=== PATIENT | male | born 1940 | race Caucasian/White ===

== ENCOUNTER 2024-06-24 23:41 | Inpatient (IN) | payer OTHER, SELFPAY ==
[2024-06-24 21:20] VITALS: BP 117/59
[2024-06-24 21:21] VITALS: BP 117/59
[2024-06-24 21:37] VITALS: BMI 27.7
[2024-06-24 21:53] LABS: COVID-19 Antigen Negative (Negative)
[2024-06-24 22:01] VITALS: BP 118/65
--- NOTE | 2024-06-24 22:03 | ED.GENMED ---
History of Present Illness
<JORDAN Garcia - Last Filed: 06/25/24 04:31>
General
Chief Complaint: Cough
Source: patient and family (son)
Time Seen by Provider: 06/24/24 21:56
Nursing documentation reviewed up to this point in time: agreed with
History of Present Illness
History of Present Illness:
A 83-year-old male with a past medical history of hypertension, thrombocytopenia, pacemaker, gallbladder dysfunction, congestive heart failure, presents to the emergency department for cough x 4 days. patient stated he began to develop a coarse
productive cough 4 days ago with brown and green-colored sputum. He describes the cough as a left sided chest vibration. He recently spent the last 5 weeks in a hospital in [place] for back pain, delirium, gallbladder dysfunction, suspected
bacterial endocarditis with positive Enterococcus blood cultures. Over the last 5 days, per son, he has had an increase in delirium frequency and severity. He denies nasal congestion, vision changes, ear fullness, abdominal pain, nausea, diarrhea,
vomiting.
Review of Systems
<JORDAN Garcia - Last Filed: 06/25/24 04:31>
Review of Systems
Allergies reviewed?: Yes
All Other Systems: ROS reviewed and negative except as documented in HPI and ROS
Phy Exam
<JORDAN Garcia - Last Filed: 06/25/24 04:31>
General Physical Exam
General Presentation: well appearing and no apparent distress
General age: appears stated age
General Skin: warm and dry
General Habitus: elderly and obese
General Mental: alert
General Hydration: appears well hydrated
General Chronic Disability: demented
Eye Exam
Eye Exam: conjunctiva normal
Cardiovascular Exam
Cardiovascular Exam: regular rate/rhythm and normal peripheral pulses
Pulmonary Exam
Oxygen Status: oxygen 2 liters via NC
Cough: coarse cough and productive cough
Breath Sounds: Rhonchi: left upper, left lower, right upper and right lower (inspiratory and expiratory, anterior)
Gastrointestinal Exam
Gastrointestinal Exam: non tender, soft and non distended
Neurological Exam
Neurological Exam: alert and speech normal
Mental
Mental Status: oriented to person, oriented to place and usual mental status
Musculoskeletal Exam
Musculoskeletal Exam: back pain
Skin Exam
Skin Exam: other (right side percutaneous cholecystomoy tube draining small amounts of bile and serosanguinous fluid )
Psychiatric Exam
Psychiatric Exam: normal mood/affect
Course
<Delfin Brink, [facility] - Last Filed: 06/25/24 04:31>
Orders/Labs/Results
Orders:
Orders
06/24/24 21:20
Electrocardiogram (*1) Urgent
Reason for Study: Other
Other Reason for Exam: Respiratory Distress
Cardiac Monitoring- Treatment ONCE
EKG- Treatment ONCE
IV Insert/Care/Rem.- Treatment PRN
CR Chest - 2 Views Urgent
Comment:
Reason For Exam: respiratory distress
06/24/24 21:29
COVID-19 Antigen Urgent
Source: Nasal Swab
06/24/24 21:47
Complete Blood Count/With Diff Urgent
Comprehensive Metabolic Panel Urgent
NT-proBNP Urgent
Troponin I Urgent
06/24/24 22:47
Lactic Acid Urgent
Blood Culture Q30M
LIANE Source: Blood/Venous
Specimen Description:
Blood Culture Q30M
LINAE Source: Blood/Venous
Specimen Description:
06/24/24 22:57
Piperacillin/Tazo 4.5 Gram [Zosyn] 4.5 gram in 100 ml IV NOW
06/24/24 23:02
0.9% Sodium Chloride 1000 ml [Nss] 1,000 ml IV BOLUS
06/24/24 23:13
Ipratropium/Albuterol Sulfate [Duoneb] 3 ml INH R NOW STA
06/24/24 23:14
Sputum Culture [Respiratory Culture/Gram Stain] Urgent
LIANE Source: Sputum
Specimen Description:
06/25/24 00:00
CT Head W/o Iv Contrast Urgent
Reason For Exam: confusion, acute change in MS
Abnormal Lab Results
06/24/24
21:47
RBC 3.70 L 10^6/uL
(4.70-6.10)
Hgb 12.5 L g/dL
(13.0-18.0)
Hct 35.2 L %
(39.0-52.0)
MCV 95.1 H fL
(80.0-94.0)
MCH 33.8 H pg
(27.0-31.0)
Plt Count 27 L* 10^3/uL
(130-400)
MPV 12.0 H fL
(7.4-10.4)
Absolute Eos (auto) 0.9 H 10^3/uL
(0-0.7)
Lymphocytes % 17.9 L %
(20.5-51.1)
Eosinophils % 10.5 H %
(0-6)
Chloride 94 L mmol/L
(98-107)
Carbon Dioxide 31 H mmol/L
(22-30)
BUN 25 H mg/dl
(9-20)
Creatinine 3.3 H mg/dL
(0.7-1.3)
Glucose 124 H mg/dl
(70-99)
Total Protein 6.1 L g/dl
(6.3-8.2)
06/24/24 21:47
06/24/24 21:47
Vital Signs
Initial and Last Documented VS:
Initial Vital Signs
Temp Pulse Resp Pulse Ox
97.7 F 97 19 89
06/24/24 21:14 06/24/24 21:14 06/24/24 21:14 06/24/24 21:14
Last Documented Vital Signs
Temp Pulse Resp BP Pulse Ox
98.3 F 76 17 118/55 96
06/25/24 02:47 06/25/24 04:04 06/25/24 04:04 06/25/24 04:04 06/25/24 04:04
<Radha Bhatia DO - Last Filed: 06/25/24 05:29>
Orders/Labs/Results
Orders:
Orders
06/24/24 21:20
Electrocardiogram (*1) Urgent
Reason for Study: Other
Other Reason for Exam: Respiratory Distress
Cardiac Monitoring- Treatment ONCE
EKG- Treatment ONCE
IV Insert/Care/Rem.- Treatment PRN
CR Chest - 2 Views Urgent
Comment:
Reason For Exam: respiratory distress
06/24/24 21:29
COVID-19 Antigen Urgent
Source: Nasal Swab
06/24/24 21:47
Complete Blood Count/With Diff Urgent
Comprehensive Metabolic Panel Urgent
NT-proBNP Urgent
Troponin I Urgent
06/24/24 22:47
Lactic Acid Urgent
Blood Culture Q30M
LIANE Source: Blood/Venous
Specimen Description:
Blood Culture Q30M
LIANE Source: Blood/Venous
Specimen Description:
06/24/24 22:57
Piperacillin/Tazo 4.5 Gram [Zosyn] 4.5 gram in 100 ml IV NOW
06/24/24 23:02
0.9% Sodium Chloride 1000 ml [Nss] 1,000 ml IV BOLUS
06/24/24 23:13
Ipratropium/Albuterol Sulfate [Duoneb] 3 ml INH R NOW STA
06/24/24 23:14
Sputum Culture [Respiratory Culture/Gram Stain] Urgent
LIANE Source: Sputum
Specimen Description:
06/25/24 00:00
CT Head W/o Iv Contrast Urgent
Reason For Exam: confusion, acute change in MS
Abnormal Lab Results
06/24/24
21:47
RBC 3.70 L 10^6/uL
(4.70-6.10)
Hgb 12.5 L g/dL
(13.0-18.0)
Hct 35.2 L %
(39.0-52.0)
MCV 95.1 H fL
(80.0-94.0)
MCH 33.8 H pg
(27.0-31.0)
Plt Count 27 L* 10^3/uL
(130-400)
MPV 12.0 H fL
(7.4-10.4)
Absolute Eos (auto) 0.9 H 10^3/uL
(0-0.7)
Lymphocytes % 17.9 L %
(20.5-51.1)
Eosinophils % 10.5 H %
(0-6)
Chloride 94 L mmol/L
(98-107)
Carbon Dioxide 31 H mmol/L
(22-30)
BUN 25 H mg/dl
(9-20)
Creatinine 3.3 H mg/dL
(0.7-1.3)
Glucose 124 H mg/dl
(70-99)
Total Protein 6.1 L g/dl
(6.3-8.2)
06/24/24 21:47
06/24/24 21:47
Vital Signs
Initial and Last Documented VS:
Initial Vital Signs
Temp Pulse Resp Pulse Ox
97.7 F 97 19 89
06/24/24 21:14 06/24/24 21:14 06/24/24 21:14 06/24/24 21:14
Last Documented Vital Signs
Temp Pulse Resp BP Pulse Ox
98.3 F 76 17 118/55 96
06/25/24 02:47 06/25/24 04:04 06/25/24 04:04 06/25/24 04:04 06/25/24 04:04
<JORDAN Garcia - Last Filed: 06/25/24 04:31>
MDM/Problems Addressed
Differential Diagnosis Includes:
Acute exacerbation of congestive heart failure, pneumonia, bacteremia, sepsis,
MDM/Problems Addressed:
Bacteremia and sepsis are currently pending.
X-ray findings demonstrated a left posterior lobe consolidation concerning for possible pneumonia.
Physical exam findings demonstrated prominent Rales in superior anterior and inferior anterior lobes of the chest consistent with pulmonary edema which could be related to to acute exacerbation of CHF.
<JORDAN Garcia - Last Filed: 06/25/24 04:31>
*Critical Care Note
Total Time (30-74mins, 75-104mins- exclusive of procedures): Not Applicable
<Radha Bhatia DO - Last Filed: 06/25/24 05:29>
*Radiology
Radiology exam reviewed: radiology read reviewed (CT of the head is unremarkable.)
ED Attending Note
<JORDAN Garcia - Last Filed: 06/25/24 04:31>
-
Portions of this chart may have been created with voice recognition software.� Occasional wrong word or��sound alike� substitutions may have occurred due to the inherent limitations of voice recognition software.
<Radha Bhatia DO - Last Filed: 06/25/24 05:29>
ED Attending Note
Patient seen and examined by attending physician: Yes
I performed the substantive portion of visit, reviewed & personally made and approve the management plan that is documented in note by myself or MATHEW.: Yes
ED Attending Note:
This is an 83-year-old gentleman who prior to 6 weeks ago had been residing at home independently, primary irrigator gravity flow for his who has advanced dementia. He was acutely hospitalized at [facility] 6 weeks ago initially with complaints of
severe back pain, generalized pain and weakness. Found to have Enterococcus bacteremia, acute cholecystitis and MRI showed possible discitis. Hospital course was complicated by acute on chronic thrombocytopenia. With platelet count generally
running in the low teens to 50s to 60s.
He has history of CAD, quadruple bypass, history of CHF with AICD in place. Echocardiogram concerning for vegetation on pacemaker wire and nuc med white blood cell scan showed increased uptake at vertebral disc, gallbladder as well as endocardial.
Significant back pain treated with Tylenol and as needed doses of tramadol. Placed on 6-week course of IV daptomycin which is scheduled to complete June 29.
He was discharged from [facility] to [facility] June 12.
Initially doing well but with continued back pain tramadol dose was increased June 19 and since that time he has had slow decline in functioning, increased confusion and son concerned with urgent text from his father today as his father seemed
very confused and paranoid. He has had a cough that initially began 2 days ago, increased today and sent to the ED by senior living staff due to laboratory studies today showing platelet count drifting down from 64 June 18 to 38 today.
He has not had a fall nor fever and according to son who is at bedside providing most of this information he was not running a fever during his hospitalization at [facility].
Although history of chronic thrombocytopenia, no history of acute bleeding issues. No history of falls prior to his hospitalization.
The son is healthcare advocate, power of commercial door installer. He states his father has advanced directives and he is DNR status.
GENERAL: 83-year-old gentleman appears somewhat chronically debilitated, appears his stated age. He is awake and alert, oriented x 2. Mildly anxious but easily communicative and answers yes/no questions appropriately. Mild resting tachypnea is
noted. Acutely hypoxic with room air pulse ox of 89%. Improved to 94% on 2 L nasal cannula.
EYE: pupils equal and reactive. anicteric
NECK: Supple, nontender, no meningismus, no significant adenopathy.
ENT: posterior pharynx is clear, oral mucosa is dry. TM clear b/l, nares patent.
CARDIAC: Regular rate and rhythm. 2/6 holosystolic murmur
LUNGS: Mild resting tachypnea. Coarse rhonchi left lower lobe as well as fine rhonchi throughout lung [place] bilaterally.
ABDOMEN: Soft, nondistended, without focal tenderness, T-tube right upper quadrant draining bilious liquid, no r/g, no cvat. normoactive BS.
NEUROLOGICAL: Alert and oriented x2, no focal neuro deficits. Motor strength 5/5 bilaterally. Gross sensation is intact.
SKIN: Warm and dry, normal color, skin intact. No rash. Ecchymotic patches anterior abdomen.
MUSCULOSKELETAL: No C/C/E. peripheral pulses are full and equal b/l. No palpable tenderness.
PSYCH: Mildly anxious, mildly confused, cooperative.
Concern for healthcare associated pneumonia, CHF, acute on chronic kidney disease, concern for progression of thrombocytopenia, concern for spontaneous intracranial bleeding, concern for persistent/recurrent bacteremia. Concern for toxic metabolic
encephalopathy related to hypoxia, increased tramadol dose, bacteremia, intracranial bleeding.
Labs are pending, chest x-ray, CT of the head. Will add lactic acid, blood cultures.
Chest x-ray shows left lower lobe infiltrate. Normal heart size. AICD left upper chest wall. Sternotomy wires.
Labs are significant for significant thrombocytopenia platelet count of 27 has drifted down from 38 earlier today.
Acute on chronic kidney disease with creatinine of 3.3, continues to drift up from earlier today with marked increased from creatinine of 1.44 June 18.
Clinically patient appears dehydrated, dry oral mucous membranes and uptrend in hemoglobin is likely hemoconcentration related to dehydration.
COVID testing is negative.
Troponin is negative.
BNP is 900, likely dry for patient.
CT of the head is pending.
Lactic acid is pending.
Will initiate IV Zosyn for coverage of healthcare associated pneumonia.
Will initiate gentle IV fluid rehydration.
Will give DuoNeb nebulizer for cough and if sputum produced will check sputum C&S.
Due to history of recent bacteremia, recent hospitalization, blood cultures have been ordered as well.
Will admit to hospitalist service.
Discharge Plan
Departure
Patient Disposition: Admit
Date of Disposition: 06/24/24
Time of Disposition: 23:14
Admit to: Telemetry
Admit to doctor: Ed
Presentation/result/management discussed w/ accepting MD/DO: Hospitalist
Condition: Serious
Discharge Problem:
HCAP (healthcare-associated pneumonia), Acute respiratory failure with hypoxia, Acute kidney injury superimposed on chronic kidney disease, acute on chronic thrombocytopenia
Interventions
Interventions:
*Risk Screen - Suicide Last Done: 06/24/24 21:14
*General Assessment Last Done: 06/24/24 21:14
*Neglect/Abuse Screening Last Done: 06/24/24 21:14
ED- Fall Risk Assessment Last Done: 06/25/24 00:52
*ED COVID-19 Vaccine History Last Done: 06/24/24 21:14
*Nursing Disposition Last Done: 06/25/24 00:52
ED- Pulmonary Assessment Last Done: 06/24/24 22:02
Discharge Date and Time
Discharge Date/Time: 06/25/24 00:53
[2024-06-24 22:20] LABS: % Basophils 0.4 % (0-2); % Eosinophils 10.5 % (0-6); % Immature Granulocytes 0.5 % (0-0.5); % Lymphocytes 17.9 % (20.5-51.1); % Monocytes 5.7 % (1.7-9.3); Absolute Eosinophils 0.9 10^3/uL (0-0.7); Absolute Lymphocytes 1.5 10^3/uL (1.2-3.4); Absolute Monocytes 0.5 10^3/uL (0.1-0.6); Absolute Neutrophils 5.4 10^3/uL (1.4-6.5); Hematocrit 35.2 % (39.0-52.0); Hemoglobin 12.5 g/dL (13.0-18.0); Mean Corp Hgb Conc. 35.5 g/dL (33.0-37.0); Mean Corpuscular Hgb 33.8 pg (27.0-31.0); Mean Corpuscular Volume 95.1 fL (80.0-94.0); Nucleated Red Blood Cells % 0 % (-); Platelet Count 27 10^3/uL (130-400); Red Cell Dist. Width 13.7 % (11.5-14.5); White Blood Cell Count 8.3 10^3/uL (4.8-10.8)
[2024-06-24 22:26] LABS: ALT (SGPT) 24 U/L (0-50); AST (SGOT) 35 U/L (17-59); Albumin 4.3 g/dl (3.5-5.0); Alkaline Phosphatase 43 U/L (38-126); Blood Urea Nitrogen 25 mg/dl (9-20); Carbon Dioxide 31 mmol/L (22-30); Chloride 94 mmol/L (98-107); Estimated Creatinine Clearance 15 ml/min; Glucose 124 mg/dl (70-99); Potassium 4.4 mmol/L (3.5-5.1); Sodium 136 mmol/L (135-145); Total Protein 6.1 g/dl (6.3-8.2)
[2024-06-24 22:29] LABS: NT-proBNP 912 pg/ml; Troponin I 0.025 ng/ml
[2024-06-24 23:00] VITALS: BP 115/56
[2024-06-24] MEDS: NSS 1000 IV (23:05)
[2024-06-24] MEDS: ZOSYN 100 IV (23:07)
[2024-06-24 23:11] LABS: Lactic Acid 1.5 mmol/L (0.7-2.0)
[2024-06-24] MEDS: DUONEB 3 ML INH (23:19)
--- NOTE | 2024-06-24 23:19 | HPS.HSE ---
Family Physician
-
Family Physician: Sergio Zhou
Chief Complaint
-
Cough
History of Present Illness
83-year-old male past medical history of CAD status post CABG, diastolic heart failure with ICD, CKD 3, hypertension, chronic thrombocytopenia, presenting to the hospital for productive cough and confusion for the past 5 days. History is obtained
from ER physician who obtained history from patient's son as listed in the chart.
Patient has had a lengthy hospitalization at [facility] after he presented there for generalized pain including abdominal pain and back pain and was found to have acute on chronic thrombocytopenia, acute cholecystitis, discitis as well as
vegetation on pacer wire, and Enterococcus bacteremia.
Due to thrombocytopenia no surgery was performed for acute cholecystitis but he had T-tube placed. No biopsy was performed for the discitis due to thrombocytopenia as well. No surgery was performed for the vegetation on the pacer wire.
Enterococcus bacteremia was treated with daptomycin through PICC line which patient is supposed to complete on 06/29.
Patient was discharged to [facility] on 06/12. She was discharged on Tylenol and tramadol for pain. Tramadol was increased due to increased pain. Over the past 5 days he has had worsening confusion, agitation and he was noted to be paranoid
today. He ripped out his midline.
Patient's platelet count was previously 64. Creatinine was 1.44 on 06/18.
Medical History
Past Medical History
Past Medical History: Reports Other
Additional Past Medical History:
Coronary Artery Disease
Chronic Diastolic Heart Failure
Essential Hypertension
Hyperlipidemia
CKD Stage III
Thrombocytopenia
Fatty Liver
BPH
Lumbar Spondylolisthesis
Enterococcus Bacteremia secondary to acute cholecystitis complicated by discitis and infected defibrillator wire
Past Surgical History: Reports Other
Additional Past Surgical History:
CABG
Defibrillator
Social History
Unable to obtain full social history at this time due to: Dementia
Tobacco: Non-smoker
Alcohol: None
Drug: None
Personal:
Living: Detention
Family History
Family History: Not pertinent
Allergies / Home Medications
Allergies reflects when Allergies were last updated in [employer].
Home Medications with original date entered in [employer]
Allergy/Medication List:
Allergies
Allergy/AdvReac Type Severity Reaction Status Date / Time
No Known Allergies Allergy Unverified 06/24/24 21:14
Home Medications
acetaminophen 325 mg tablet 650 mg PO Q4HPRN PRN mild pain/temp>100F 06/24/24
aspirin 81 mg tablet,delayed release 81 mg PO DAILY 06/24/24
bisacodyl 10 mg rectal suppository (Dulcolax (bisacodyl)) 10 mg DC DAILYPRN PRN if mom is ineffective 06/24/24
carvedilol 6.25 mg tablet 6.25 mg PO BID 06/24/24
daptomycin 500 mg intravenous solution 550 mg IV HS 06/24/24
isosorbide mononitrate 30 mg tablet,extended release 24 hr 30 mg PO DAILY 06/24/24
magnesium hydroxide 400 mg/5 mL oral suspension (Milk of Magnesia) 30 ml PO DAILYPRN PRN if no bm x 3 days 06/24/24
pantoprazole 40 mg tablet,delayed release 40 mg PO DAILY 06/24/24
potassium chloride 20 mEq tablet,extended release 20 meq PO DAILY 06/24/24
rosuvastatin 20 mg tablet 20 mg PO HS 06/24/24
sacubitril 24 mg-valsartan 26 mg tablet 1 tab PO DAILY 06/24/24
sodium chloride 0.9 % 10 ml IV TID 06/24/24
sodium phosphates 19 gram-7 gram/118 mL enema (Fleet Enema) 118 ml DC DAILYPRN PRN if dulcolax is ineffective 06/24/24
torsemide 20 mg tablet 20 mg PO DAILY 06/24/24
tramadol 50 mg tablet 50 mg PO Q8HPRN PRN moderate to severe pain 06/24/24
Review of Systems
-
Unable to obtain full review of systems at this time due to: Dementia
Physical Exam
Vital Signs
Vital Signs
Temp Pulse Resp BP Pulse Ox
97.7 F 90 25 118/65 92
06/24/24 21:14 06/24/24 22:39 06/24/24 22:39 06/24/24 22:01 06/24/24 22:39
Physical Exam
General: Well Developed, Well Nourished, No Apparent Distress and Comfortable
HEENT: NormoCephalic, Moist mucous membranes, Atraumatic, [place] Conjunctivae, Nose Appears Normal and Ears Appear Normal
Respiratory: Clear, Rhonchi, Crackles and Decreased Breath Sounds
Cardiac: S1/S2 and Regular Rhythm; No Murmur, Rub or Gallop
Breast: Deferred by me
GI: Soft, Non Tender and Normal Bowel Sounds; No Organomegaly
Rectal: Deferred by Provider
Genito-urinary: Deferred by me
Musculoskeletal: No Clubbing, No Cyanosis and No Edema
Skin: Warm and IV/Catheter Site; No Rash
Neuro: Awake, Alert and Nonfocal/grossly intact
Hematologic/Lymphatic: No Lymphadenopathy
Psych: Calm
Laboratory Results
-
06/24/24 21:47
06/24/24 21:47
Laboratory Results
Lactic Acid 1.5 mmol/L (0.7-2.0) 06/24/24 22:47
Total Bilirubin 1.0 mg/dl (0.2-1.3) 06/24/24 21:47
AST 35 U/L (17-59) 06/24/24 21:47
ALT 24 U/L (0-50) 06/24/24 21:47
Alkaline Phosphatase 43 U/L (38-126) 06/24/24 21:47
Troponin I 0.025 ng/ml 06/24/24 21:47
Data Reviewed
-
Diagnostic Radiology: Report Reviewed by me (CXR: Left lower lobe opacification suspicious for pneumonia. Follow-up imaging recommended to confirm complete resolution.)
Lab Data: Labs Reviewed by me (Plt 27, BUN 25, Creat 3.3)
Impression/Plan
-
IMPRESSION/PLAN:
#Pneumonia/Acute on Chronic kidney disease
- Cough x4 days, bilateral lung sounds rhonchi/crackles throughout
- CXR: Left lower lobe opacification suspicious for pneumonia
- Lactic 1.5
- Admit to IMU
- Consult Infectious disease
- Consult Nephrology
- blood cultures pending
- Mucinex
- straight cath/bladder scan protocol
- Continue daptomycin, start Zosyn
- Consult PT/OT
#Thrombocytopenia
- Plt 27
- no obvious signs of bleeding
- DVT Px SCDs
- Consult hematology
#Coronary Artery Disease
- Hx [place] with quadruple bypass
- continue rosuvastatin
#Chronic Diastolic Heart Failure
- BNP 912
- continue carvedilol, isosorbide
- hold potassium, torsemide
#Essential Hypertension
- continue carvedilol, isosorbide
- Consult Nephrology
#Hyperlipidemia
- continue rosuvastatin
#GERD
- continue pantoprazole
#BPH
- bladder scan/straight cath protocol
#Lumbar Spondylolisthesis
- hold tramadol
#Enterococcus Bacteremia secondary to acute cholecystitis complicated by discitis and infected defibrillator wire
- continue daptomycin
DNR
DVT Px: SCDs
--- NOTE | 2024-06-24 23:57 | W.PN.UPDATE ---
Addendum entered and electronically signed by ADALGISA Parry (Linda) 06/25/24 00:32:
Per Dr. Fox, Records requested from [facility] by Radha Bhatia.
Original Note:
Update Note
Progress Note Update
This is an addendum to the H&P written by Kelley Pacheco on 06/24/2024. Patient seen and examined independently with ONLINE EDUCATION MANAGER.
83-year-old male past medical history of CAD status post CABG, diastolic heart failure with ICD, CKD 3, hypertension, chronic thrombocytopenia, presenting to the hospital for productive cough and confusion for the past 5 days. History is obtained
from ER physician who obtained history from patient's son as listed in the chart.
Patient has had a lengthy hospitalization at [facility] after he presented there for generalized pain including abdominal pain and back pain and was found to have acute on chronic thrombocytopenia, acute cholecystitis, discitis as well as
vegetation on pacer wire, and Enterococcus bacteremia.
Due to thrombocytopenia no surgery was performed for acute cholecystitis but he had T-tube placed. No biopsy was performed for the discitis due to thrombocytopenia as well. No surgery was performed for the vegetation on the pacer wire.
Enterococcus bacteremia was treated with daptomycin through PICC line which patient is supposed to complete on 06/29.
Patient was discharged to [facility] on 06/12. She was discharged on Tylenol and tramadol for pain. Tramadol was increased due to increased pain. Over the past 5 days he has had worsening confusion, agitation and he was noted to be paranoid
today. He ripped out his midline.
Patient's platelet count was previously 64. Creatinine was 1.44 on 06/18.
On examination patient has coarse crackles bilaterally with productive cough. No abdominal tenderness. Labs show platelets of 27. Creatinine is 3.3. Cardiac BNP of 912. Chest x-ray shows left lower lobe opacification suspicious for pneumonia.
Patient currently on 2 L of oxygen. Clinical picture is concerning for pneumonia. Check sputum culture. Check blood cultures. Continue daptomycin, add Zosyn. Patient has severe MINDI on CKD which based on history should be prerenal however BUN is
minimally elevated. IV fluids. Bladder scan protocol. Hold nephrotoxic medications. Nephrology consulted. Hold tramadol due to confusion.
Given recent Enterococcus bacteremia, discitis, vegetation on pacer wire, cholecystitis will consult ID.
Hematology consulted for acute on chronic thrombocytopenia which is worse due to infection.
[2024-06-25] VITALS (19 sets, daily range): BP systolic 77–136; BP diastolic 49–92; PULSE 92–95; BMI 32.4
[2024-06-25] MEDS: CUBICIN 11 MG IV (01:26)
[2024-06-25] MEDS: NSS 1000 IV ×2 (01:26→19:33)
--- NOTE | 2024-06-25 01:50 | PTCARENOTE ---
Received verbal and written report from JONEL Kauffman. Pt arrived to unit via stretcher. Pt aaox2 (not to place). 95% on 2 L. VSS. V paced on the monitor. IVF running (see MAR) skin check, hygiene and admission completed (see worklist). Pt oriented
to unit, resting in bed with call way in reach.
[2024-06-25] MEDS: ZOSYN 50 IV ×4 (04:05→22:29)
[2024-06-25 05:17] LABS: Hematocrit 30.5 % (39.0-52.0); Hemoglobin 10.6 g/dL (13.0-18.0); Mean Corp Hgb Conc. 34.8 g/dL (33.0-37.0); Mean Corpuscular Hgb 33.2 pg (27.0-31.0); Mean Corpuscular Volume 95.6 fL (80.0-94.0); Mean Platelet Volume 13.1 fL (7.4-10.4); Platelet Count 25 10^3/uL (130-400); Red Blood Cell Count 3.19 10^6/uL (4.70-6.10); Red Cell Dist. Width 13.5 % (11.5-14.5); White Blood Cell Count 6.2 10^3/uL (4.8-10.8)
--- NOTE | 2024-06-25 05:28 | PTCARENOTE ---
Received call from lab that pt's plt are 25 (27 last night in ED). Notified SANDRA Iqbal. Hematology consult placed last night.
--- NOTE | 2024-06-25 08:08 | PTCARENOTE ---
Pt AAOx1-2 non compliant with care, refusing to put on a gown pt is naked under a sheet . Pt staes to leave him aonne and send him the bill for our services.
--- NOTE | 2024-06-25 08:17 | PTCARENOTE ---
Pt refusing all meds and refusing hands on assesment becoing agitated.
[2024-06-25] MEDS: PROTONIX PO (08:31)
[2024-06-25] MEDS: IMDUR (EXTENDED RELEASE) PO (08:31)
[2024-06-25] MEDS: MUCINEX PO ×3 (08:31→20:08)
[2024-06-25] MEDS: COREG PO ×2 (08:31→19:36)
--- NOTE | 2024-06-25 08:56 | PTCARENOTE ---
Pt has pulled out his Iv . Still refusing all care.Will not leave monitor on
--- NOTE | 2024-06-25 09:07 | CON.ONC ---
Impression
Impression
LLL PNA
hypotension
recent hospitalization at [facility] for management of Enterococcus Bacteremia d/t acute cholecystitis c/b discitis and infected defibrillator wire. s/p percutaneous analy tube
acute on chronic thrombocytopenia -he reports recent baseline 50,000 and chronic thrombocytopenia over the past 15 years of unknown etiology
Renal insufficiency
Plan
Plan
check DIC panel, HIT panel, b12, folate, monitor for bleeding
avoid NSAIDs, anticoagulation, and antiplatelet for platelet count <50,000
Abx per ID
MINDI/CKD per nephrology
Patient History
History of Present Illness
83yo M presents with cough and confusion. His symptoms have been ongoing for the past 5 days. He was recently hospitalized at [facility] for management of Enterococcus Bacteremia secondary to acute cholecystitis complicated by discitis
and infected defibrillator wire. He had a percutaneous analy tube placed and he placed on a course of IV abx through 06/29/2024. He was discharged to [facility] 06/12 with a PICC to complete his course of abx. He developed confusion and
agitation over the past 5 days which prompted ER evaluation. Initial evaluation notable for hypotension, afebrile, WBC 8.3, Hgb 12.5, Platelet count 27,000, BUN 25, Creatinine 3.3, and normal LFTs. CXR LLL PNA. COVID negative. Bcx pending. CT head
no acute findings. He has been admitted with consultation requests for hematology, nephrology and infectious disease. Hematology has been consulted for evaluation of acute on chronic thrombocytopenia.
He tells me that his platelet have trended from 114,00 to 80,000, and more recently with baseline of 50,000 of the past 15 years. He tells me that he does not know the cause of his low platelets. He denies ETOH use or cirrhosis.
Clinically, denies bleeding. He reports left hip/left buttock discomfort. Denies chest pain, palpitations, SOB at rest.
Past-Medical/Surgical History
PMH CAD, HFpEF, CKD 3, hypertension, chronic thrombocytopenia, BPH,
PSH CABG, ICD
Patient Medication
�Medication �Instructions �Recorded �Confirmed �Last Taken �Type
acetaminophen 325 mg tablet 650 mg PO Q4HPRN PRN mild 06/24/24 06/24/24 Unknown History
pain/temp>100F
aspirin 81 mg tablet,delayed 81 mg PO DAILY 06/24/24 06/24/24 06/24/24 09:00 History
release
bisacodyl 10 mg rectal suppository 10 mg DC DAILYPRN PRN if mom is 06/24/24 06/24/24 Unknown History
(Dulcolax (bisacodyl)) ineffective
carvedilol 6.25 mg tablet 6.25 mg PO BID 06/24/24 06/24/24 06/24/24 09:00 History
daptomycin 500 mg intravenous 550 mg IV HS 06/24/24 06/24/24 06/23/24 21:00 History
solution
isosorbide mononitrate 30 mg 30 mg PO DAILY 06/24/24 06/24/24 06/24/24 09:00 History
tablet,extended release 24 hr
magnesium hydroxide 400 mg/5 mL 30 ml PO DAILYPRN PRN if no bm x 3 06/24/24 06/24/24 Unknown History
oral suspension (Milk of Magnesia) days
pantoprazole 40 mg tablet,delayed 40 mg PO DAILY 06/24/24 06/24/24 06/24/24 09:00 History
release
potassium chloride 20 mEq 20 meq PO DAILY 06/24/24 06/24/24 06/24/24 09:00 History
tablet,extended release
rosuvastatin 20 mg tablet 20 mg PO HS 06/24/24 06/24/24 06/23/24 21:00 History
sacubitril 24 mg-valsartan 26 mg 1 tab PO DAILY 06/24/24 06/24/24 06/24/24 09:00 History
tablet
sodium chloride 0.9 % 10 ml IV TID 06/24/24 06/24/24 06/24/24 History
sodium phosphates 19 gram-7 118 ml DC DAILYPRN PRN if dulcolax 06/24/24 06/24/24 Unknown History
gram/118 mL enema (Fleet Enema) is ineffective
torsemide 20 mg tablet 20 mg PO DAILY 06/24/24 06/24/24 06/24/24 09:00 History
tramadol 50 mg tablet 50 mg PO Q8HPRN PRN moderate to 06/24/24 06/24/24 06/24/24 09:30 History
severe pain
Active Medications
Generic Name Dose Route Start Last Admin
Trade Name Freq PRN Reason Stop Dose Admin
Acetaminophen 650 mg 06/25/24 01:02
Acetaminophen 325 Mg Tablet PO 07/23/24 01:01
Q4HPRN PRN
mild pain/temp>100F
Aspirin 81 mg 06/25/24 08:00 06/25/24 08:31
Aspirin 81 Mg (Enteric Coated) Tablet PO 07/23/24 07:59 Not Given
DAILY LIVAN
Carvedilol 6.25 mg 06/25/24 08:00 06/25/24 08:31
Carvedilol 6.25 Mg Tablet PO 07/23/24 07:59 Not Given
BID LIVAN
Daptomycin 550 mg 06/25/24 22:00
Daptomycin 500 Mg/10 Ml Vial IV
HS LIVAN
Guaifenesin 600 mg 06/25/24 08:00 06/25/24 08:31
Guaifenesin 600 Mg Extended Release Tablet PO 07/23/24 07:59 Not Given
Q12 LIVAN
Sodium Chloride 1,000 mls @ 80 mls/hr 06/25/24 01:02 06/25/24 01:26
Nss IV 1,000 mls
.[id number] LIVAN Administration
Piperacillin Sod/Tazobactam Sod 2.25 grams in 50 mls @ 100 mls/hr 06/25/24 05:00 06/25/24 04:05
Zosyn IV 50 mls
Q6H LIVAN Administration
Isosorbide Mononitrate 30 mg 06/25/24 08:00 06/25/24 08:31
Isosorbide Mononitrate 30 Mg Extended Release Tablet PO 07/23/24 07:59 Not Given
DAILY LIVAN
Pantoprazole Sodium 40 mg 06/25/24 08:00 06/25/24 08:31
Pantoprazole 40 Mg Delayed Release Tablet PO 07/23/24 07:59 Not Given
DAILY LIVAN
Rosuvastatin Calcium 20 mg 06/25/24 22:00
Rosuvastatin (Crestor) 20 Mg Tablet PO 07/23/24 21:59
HS LIVAN
Review of Systems
-
ROS notable for HPI, otherwise negative
Physical Exam
-
Examined sitting in chair no distress
HEENT: Moist Mucous Membranes; Negative Jaundice
Cardiology: S1 and S2
Pulmonary: Rhonchi
GI: Soft and Other (perc analy tube)
Extremities: Pulses Present; Negative Edema
Neurology: Non Focal
Skin: Warm
Psych: Calm
Labs
Lab Results
WBC 6.2 10^3/uL (4.8-10.8) 06/25/24 04:15
RBC 3.19 10^6/uL (4.70-6.10) L 06/25/24 04:15
Hgb 10.6 g/dL (13.0-18.0) L 06/25/24 04:15
Hct 30.5 % (39.0-52.0) L 06/25/24 04:15
MCV 95.6 fL (80.0-94.0) H 06/25/24 04:15
MCH 33.2 pg (27.0-31.0) H 06/25/24 04:15
MCHC 34.8 g/dL (33.0-37.0) 06/25/24 04:15
RDW 13.5 % (11.5-14.5) 06/25/24 04:15
Plt Count 25 10^3/uL (130-400) L* 06/25/24 04:15
MPV 13.1 fL (7.4-10.4) H 06/25/24 04:15
Abs Immat Gran (auto) 0.0 10^3/uL (0-0.05) 06/24/24 21:47
Absolute Neuts (auto) 5.4 10^3/uL (1.4-6.5) 06/24/24 21:47
Absolute Lymphs (auto) 1.5 10^3/uL (1.2-3.4) 06/24/24 21:47
Absolute Monos (auto) 0.5 10^3/uL (0.1-0.6) 06/24/24 21:47
Absolute Eos (auto) 0.9 10^3/uL (0-0.7) H 06/24/24 21:47
Absolute Basos (auto) 0.0 10^3/uL (0-0.2) 06/24/24 21:47
Immature Gran % 0.5 % (0-0.5) 06/24/24 21:47
Neutrophils % 65.0 % (42.2-75.2) 06/24/24 21:47
Lymphocytes % 17.9 % (20.5-51.1) L 06/24/24 21:47
Monocytes % 5.7 % (1.7-9.3) 06/24/24 21:47
Eosinophils % 10.5 % (0-6) H 06/24/24 21:47
Basophils % 0.4 % (0-2) 06/24/24 21:47
Creatinine 3.3 mg/dL (0.7-1.3) H 06/24/24 21:47
Vital Signs
Vital Signs
Temp Pulse Resp BP Pulse Ox
97.8 F 86 18 123/55 96
06/25/24 07:44 06/25/24 08:01 06/25/24 08:01 06/25/24 08:01 06/25/24 08:24
--- NOTE | 2024-06-25 09:14 | W.CON.NEPH ---
Consultation
-
Date/Time Consultation Requested: 06/25/2024 8 AM
Date/Time Consultation Performed: 06/25/2024 9 AM
Requesting Provider: Dr. Fox
Performing Provider: Dr. Isaac
Reason for Consultation: MINDI
Medical History
-
Chief Complaint: Cough and confusion
History of Present Illness:
This is an 83-year-old gentleman who has most of his care near the [facility]. He was in the [facility] for a prolonged hospitalization recently for abdominal pain and back pain. At that time he was noted to have acute on chronic
thrombocytopenia, acute cholecystitis, discitis, pacer wire vegetation. This was associated with Enterococcus bacteremia. Given the thrombocytopenia conservative management was performed. A cholecystotomy tube was placed and empiric antibiotics
with daptomycin were given. No intervention was performed otherwise. He stabilized and was sent to [facility] on 06/12/2024. Blood work 1 week into his transfer showed a creatinine of 1.44 on June 18. Subsequently, he developed more pain
and his tramadol was increased. He then became more confused and agitated and paranoid. He pulled out his line. He was sent to the hospital. It was felt that he may also have a pneumonia. His creatinine was noted to be elevated over 3.0
representing acute kidney injury. He is currently uncooperative.
Past Medical History
Coronary Artery Disease
Chronic Diastolic Heart Failure
Essential Hypertension
Hyperlipidemia
CKD Stage IIIa
Thrombocytopenia
Fatty Liver
BPH
Lumbar Spondylolisthesis
Enterococcus Bacteremia secondary to acute cholecystitis complicated by discitis and infected defibrillator wire
CABG
Defibrillator/PPM
Social History
Tobacco: Non-Smoker
Alcohol: None
Family History
Family History: Not Pertinent
Allergies / Home Medications
Allergy/AdvReac Type Severity Reaction Status Date / Time
No Known Allergies Allergy Unverified 06/24/24 21:14
�Medication �Instructions �Recorded �Confirmed �Type
acetaminophen 325 mg tablet 650 mg PO Q4HPRN PRN mild 06/24/24 06/24/24 History
pain/temp>100F
aspirin 81 mg tablet,delayed 81 mg PO DAILY 06/24/24 06/24/24 History
release
bisacodyl 10 mg rectal suppository 10 mg CA DAILYPRN PRN if mom is 06/24/24 06/24/24 History
(Dulcolax (bisacodyl)) ineffective
carvedilol 6.25 mg tablet 6.25 mg PO BID 06/24/24 06/24/24 History
daptomycin 500 mg intravenous 550 mg IV HS 06/24/24 06/24/24 History
solution
isosorbide mononitrate 30 mg 30 mg PO DAILY 06/24/24 06/24/24 History
tablet,extended release 24 hr
magnesium hydroxide 400 mg/5 mL 30 ml PO DAILYPRN PRN if no bm x 3 06/24/24 06/24/24 History
oral suspension (Milk of Magnesia) days
pantoprazole 40 mg tablet,delayed 40 mg PO DAILY 06/24/24 06/24/24 History
release
potassium chloride 20 mEq 20 meq PO DAILY 06/24/24 06/24/24 History
tablet,extended release
rosuvastatin 20 mg tablet 20 mg PO HS 06/24/24 06/24/24 History
sacubitril 24 mg-valsartan 26 mg 1 tab PO DAILY 06/24/24 06/24/24 History
tablet
sodium chloride 0.9 % 10 ml IV TID 06/24/24 06/24/24 History
sodium phosphates 19 gram-7 118 ml CA DAILYPRN PRN if dulcolax 06/24/24 06/24/24 History
gram/118 mL enema (Fleet Enema) is ineffective
torsemide 20 mg tablet 20 mg PO DAILY 06/24/24 06/24/24 History
tramadol 50 mg tablet 50 mg PO Q8HPRN PRN moderate to 06/24/24 06/24/24 History
severe pain
Review of Systems
-
No chest pain or shortness of breath. Patient is confused
All other systems: Negative unless noted
Physical Exam
Vital Signs
Vital Signs
Temp Pulse Resp BP Pulse Ox
97.8 F 86 18 123/55 96
06/25/24 07:44 06/25/24 08:01 06/25/24 08:01 06/25/24 08:01 06/25/24 08:24
Lab Results
WBC 6.2 10^3/uL (4.8-10.8) 06/25/24 04:15
RBC 3.19 10^6/uL (4.70-6.10) L 06/25/24 04:15
Hgb 10.6 g/dL (13.0-18.0) L 06/25/24 04:15
Hct 30.5 % (39.0-52.0) L 06/25/24 04:15
Plt Count 25 10^3/uL (130-400) L* 06/25/24 04:15
Sodium 136 mmol/L (135-145) 06/24/24 21:47
Potassium 4.4 mmol/L (3.5-5.1) 06/24/24 21:47
Chloride 94 mmol/L (98-107) L 06/24/24 21:47
Carbon Dioxide 31 mmol/L (22-30) H 06/24/24 21:47
BUN 25 mg/dl (9-20) H 06/24/24 21:47
Creatinine 3.3 mg/dL (0.7-1.3) H 06/24/24 21:47
eGFR 17.60 06/24/24 21:47
Glucose 124 mg/dl (70-99) H 06/24/24 21:47
Calcium 10.0 mg/dl (8.4-10.2) 06/24/24 21:47
Mtc-J-Pgfqikswgyl Pept 912 pg/ml 06/24/24 21:47
Albumin 4.3 g/dl (3.5-5.0) 06/24/24 21:47
On June 18, 2024 potassium 2.7, creatinine 1.44, hemoglobin 10.5, platelets 64
On June 24, 2024 platelets 27, magnesium 1.5, creatinine 3.13, potassium 4.3
Physical Exam
Patient is awake alert oriented and in no distress. Mood and affect were pleasant, insight and judgment were good. Pupils are equal round and reactive to light, extraocular movements are intact, sclera were anicteric. Hearing was normal, ears and
nose are intact. Oropharynx was clear. Neck was supple with trachea midline and no thyromegaly. Heart was regular rate and rhythm without rubs. Lower extremities without edema. Lungs were clear to auscultation bilaterally and with normal
excursion. Abdomen was soft, nontender, with normal active bowel sounds, and no hepatosplenomegaly. Skin was without rash and with normal turgor.
Data Reviewed
-
Radiology: Image Personally Visualized and interpreted (Chest x-ray on 06/24/2024 by my read shows left lower lobe infiltrate)
CT Scan: Report Reviewed by me (CT head on 06/25/2024 shows no acute disease)
Medical Tests (Nuc Med, Echo etc): Image Personally Visualized and interpreted (EKG on 06/24/2024 by my reading shows V paced rhythm)
Labs: Labs Reviewed by me
Old Records: Reviewed
Assessment/Plan
-
Assessment
MINDI
CKD 3A, 1.44
Discitis
Pacer wire vegetation
Cholecystitis/TTube
Recent enterococcal bacteremia
Thrombocytopenia
Confusion, uncooperative
Plan
Follow BMP
IV fluids would be beneficial though patient will need to except an IV
Psychiatric consultation
Check urine if able
Antibiotics per infectious disease
--- NOTE | 2024-06-25 10:15 | CM ---
Met with patient briefly at beside; patient was confused
Initial assessment complete with son, Prem Morrison via phone
Son reported that patient was admitted via the ED from [facility]; NO Bed on Hold; son undecided if he wants patient to return to [facility] when stable for discharge; if he does, he will provide CM with site preferences
Son reported that father's confusion started 5 days ago; he was oriented at baseline
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
At [facility], patient needed assistance w/ADLs; getting out of bed to stand; was ambulating with a RW; able to feed self
Plan: most likely will need to return to a SNF when medically stable; pending bed availability and Auth approval
[2024-06-25] MEDS: MUCINEX 600 MG PO ×2 (10:28→21:38)
[2024-06-25] MEDS: PROTONIX 40 MG PO (10:28)
[2024-06-25] MEDS: COREG 6.25 MG PO (10:28)
[2024-06-25] MEDS: IMDUR (EXTENDED RELEASE) 30 MG PO (10:28)
[2024-06-25] MEDS: TYLENOL 650 MG PO (10:36)
--- NOTE | 2024-06-25 10:40 | PTCARENOTE ---
Pt now accepting meds and care.Given nmeds except ASA axxepted new IV
--- NOTE | 2024-06-25 10:51 | CON.CAR ---
Addendum entered and electronically signed by Kenny Castro MD 06/25/24 16:18:
83 yo male with PMH of CAD/CABG, ICM last EF 35-40%, BiV ICD, thrombocytopenia admitted with PNA. Prior recent admission at [facility] with enterococcus bacteremia and report of device lead vegetation. Due to thrombocytopenia, conservative
management was recommended. He complains of cough, and no chest pain. Exam with RRR, no murmurs, no edema. 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 Cr 3.3. Plts 25-30.
Echo here: EF 25-30%, no sig valve disease, no evidence of endocarditis within limits of TTE.
Given age, renal function (Cr 3.3), thrombocytopenia with plts <50, conservative/med mgmt seems reasonable, especially if Bcx remain negative. If Bcx become positive and plts improve above 50, we could reconsider DAYA, but he does not seem like a
good candidate for lead extraction at this time.
ICM. Continue coreg. Meds currently limited by renal function, Cr 3.3, unknown baseline. Continue coreg. Entresto and torsemide on hold.
Original Note:
Consultation
Consultation Request
Date/Time Consultation Requested: 06/25/24 1005
Date/Time Consultation Performed: 06/25/24 1030
Requesting Provider: Patsy Sutton MD
Performing Provider: Lucía DIANA for Dr. Castro
Reason for Consultation: eval for DAYA
Medical History
-
Chief Complaint: cough, confusion
History of Present Illness:
83 y/o male with CAD s/p CABG, hypertension, LBBB, ICM, HFrEF with EF from 11/22/22 35-40% (improved per chart), BS bi-V ICD, CKD, and thrombocytopenia. He identified his pre press manager as Dr. Barboza [facility] cardiology and I personally requested records,
which showed that he has a bi-V ICD ([employer]) placed in 2021. Patient is a poor historian at this time, so details of PMH and HPI are obtained from the chart. Apparently, he had a prolonged recent hospitalization at [facility] with
acute cholecystitis, discitis, vegetation on cardiac device wire, enterococcus bacteremia, and worsened thrombocytopenia. He has been at SNF ever since and is on IV abx. However, he has been having a significant cough, as well as confusion for the
past 5 days prior to arrival to hospital so was sent in for further evaluation. He has suspected PNA. We are consulted to evaluate for DAYA. Per primary team, conservative management at outside hospital was pursued due to low platelets. He is in no
distress at the time of my assessment. He has rhonchi throughout lung fiends on auscultation and continues to cough. Creatinine is noted to be 3.3 and nephrology is on the case. Recent hospitalization records requested from primary team per chart.
Past Medical History
Past Medical History: CAD, CHF, HTN and Other (thrombocytopenia)
Social History
Living: [facility]
Family History
Family History: Reviewed & Not Pertinent
Allergies / Home Medications
Allergy/AdvReac Type Severity Reaction Status Date / Time
No Known Allergies Allergy Unverified 06/24/24 21:14
�Medication �Instructions �Recorded �Confirmed �Type
acetaminophen 325 mg tablet 650 mg PO Q4HPRN PRN mild 06/24/24 06/24/24 History
pain/temp>100F
aspirin 81 mg tablet,delayed 81 mg PO DAILY Blood Clot 06/24/24 06/24/24 History
release Prevention/Tx
bisacodyl 10 mg rectal suppository 10 mg SC DAILYPRN PRN if mom is 06/24/24 06/24/24 History
(Dulcolax (bisacodyl)) ineffective
carvedilol 6.25 mg tablet 6.25 mg PO BID Heart 06/24/24 06/24/24 History
Disease/Condition
daptomycin 500 mg intravenous 550 mg IV HS Infection 06/24/24 06/24/24 History
solution
isosorbide mononitrate 30 mg 30 mg PO DAILY Heart 06/24/24 06/24/24 History
tablet,extended release 24 hr Disease/Condition
magnesium hydroxide 400 mg/5 mL 30 ml PO DAILYPRN PRN if no bm x 3 06/24/24 06/24/24 History
oral suspension (Milk of Magnesia) days
pantoprazole 40 mg tablet,delayed 40 mg PO DAILY Gastrointestinal 06/24/24 06/24/24 History
release Issue
potassium chloride 20 mEq 20 meq PO DAILY Electrolyte 06/24/24 06/24/24 History
tablet,extended release Repletion
rosuvastatin 20 mg tablet 20 mg PO HS High Cholesterol 06/24/24 06/24/24 History
sacubitril 24 mg-valsartan 26 mg 1 tab PO DAILY Heart 06/24/24 06/24/24 History
tablet Disease/Condition
sodium chloride 0.9 % 10 ml IV TID Allergies 06/24/24 06/24/24 History
sodium phosphates 19 gram-7 118 ml SC DAILYPRN PRN if dulcolax 06/24/24 06/24/24 History
gram/118 mL enema (Fleet Enema) is ineffective
torsemide 20 mg tablet 20 mg PO DAILY Fluid 06/24/24 06/24/24 History
Retention/Swelling
tramadol 50 mg tablet 50 mg PO Q8HPRN PRN moderate to 06/24/24 06/24/24 History
severe pain
Review of Systems
-
Unable to obtain full review of systems at this time due to: Other (forgetful)
History Source: Other (chart)
Constitutional: Other (confusion)
Respiratory: Cough
Physical Exam
Vital Signs
Temp Pulse Resp BP Pulse Ox
97.8 F 86 18 123/55 96
06/25/24 07:44 06/25/24 08:01 06/25/24 08:01 06/25/24 08:01 06/25/24 08:24
Lab Results
06/25/24 04:15
06/24/24 21:47
Troponin I 0.025 ng/ml 06/24/24 21:47
Mpa-M-Eomwhrjjckc Pept 912 pg/ml 06/24/24 21:47
Physical Exam
General: Well Developed, Well Nourished and No Apparent Distress
HEENT: Normocephalic and Anicteric
Respiratory: Rhonchi (throughout)
Cardiac: Regular Rhythm
Musculoskeletal: No Edema
Skin: Warm and Dry
Neuro: Awake, Alert and Oriented (to self and time; forgetful)
Psych: Calm
Impression / Plan
-
Pneumonia:
-on IV abx
-management per primary team. ID is consulted.
MINDI on CKD:
-nephrology is following
CAD with hx CABG:
-details unknown
-seems to be stable without angina
CHF: chronic HFrEF
-does not appear volume overloaded to my assessment
-monitor volume
-he is on torsemide as OP- held for now with MINDI and acute illness
ICM EF 35-40% on echo 2022 from [facility]:
-on Entresto and coreg as OP
-Entresto held with MINDI
Thrombocytopenia:
-severe
-heme consulted
Recent enterococcus bacteremia with reports of discitis and cardiac device wire involvement:
-repeat blood cultures pending
-we are consulted to evaluate for DAYA. However, patient has a platelet count of 25 and it would not be safe or helpful to get DAYA at this time. Recommend antibiotics as recommended by ID, who are consulted.
Data Reviewed
-
EKG: Tracing Personally Visualized and interpreted ( LEATHER ETCHER, prolonged AV conduction 95 BPM)
Radiology: Report Reviewed by me (Left lower lobe opacification suspicious for pneumonia. )
Medical Tests (Nuc Med, Echo etc): Report Reviewed by me (echo 11/22/2022: EF 35-40%, mild MR)
Labs: Labs Reviewed by me
Old Records: Reviewed (echo and device info [facility] cardiology)
--- NOTE | 2024-06-25 11:22 | VATNOTE ---
Midline order received for ABX through Saturday06/29/24. This VAT RN spoke to ordering resident, ok to hold on midline. Per resident, pt is not up for D/C today and is in/out of confusion. Pt has pulled previous lines, including a PICC line at the
[facility]. If still needed, midline can be placed closer to D/C. Will continue to monitor.
[2024-06-25 11:38] LABS: APTT 30.9 Sec (23.4-35.0); INR 1.48; PT 18.4 Sec (11.4-14.6)
--- NOTE | 2024-06-25 11:39 | W.PN.HOSP.TC ---
Addendum entered and electronically signed by Yair Jacob MD 06/25/24 13:43:
Imaging
CXR
IMPRESSION:
Left lower lobe opacification suspicious for pneumonia. Follow-up imaging recommended to confirm complete resolution.
Head CT
IMPRESSION:
1. No acute intracranial abnormalities appreciated.
2. Mild atrophy and mild chronic small vessel change.
Physical Exam
NAD, resting comfortably in bed
Scleral anicteric
Moist mucous membranes
No JVD
CTA bilateral
Normal S1-S2 no murmurs
Soft nontender nondistended bowel sounds active
No peripheral pitting edema
Moves extremities spontaneously
AAOx3
Assessment and Plan
Acute hypoxemic respiratory secondary to pneumonia
-Recently hospitalized for Enterococcus bacteremia, on long-term IV antibiotics with daptomycin with end date 06/29
-As daptomycin causes MRSA this will be continued
-Add additional broad-spectrum antibiotic with Zosyn
-ID consulted
-Follow-up on sputum and blood cultures
-Wean O2
-Incentive spirometer
MINDI
-Per documentation baseline creat 1.4
-Not sure what baseline GFR was unclear if this is MINDI on CKD versus progressive CKD however likely the former
-Check urine studies with urine analysis urine sodium creatinine protein and urine OSM
-Monitor urinary output
-Bladder scan
-Nephrology to see
Enterococcus bacteremia from outside hospital for suspected endocarditis
-Midline pulled out
-Consult IV team to place
-Continue daptomycin
-ID consulted
-DAYA once plt greater than 50 per cardiology
Thrombocytopenia�chronic
-Can check HIV hepatitis C B12 folate
-Peripheral smear
-Hematology consulted
-Transfuse platelets for active bleeding with platelet count of less than 30,000
-Transfuse platelets without active bleeding for platelet count less than than 10,000
CAD
-S/p quadruple bypass
-Not on ASA as plt less than 50,000
-Continue HI statin
Refusing treatment, has limited insight, sat with him for 33minutes, explaining his medical ocnditions, where he was and what the plan was
-Consult psych
Original Note:
Today's Communication/Plan
-
Continue antibiotics, continue gentle fluid, hold ASA with MINDI, cultures pending
Assessment / Plan
Assessment / Plan
Pneumonia
� Chest x-ray left lower lobe opacification suspicious for pneumonia
- Cough for past 4 days, bilateral rhonchi/crackles throughout
- Lactic acid 1.5
- Blood cultures pending
- Zosyn, cont daptomycin
- Gentle fluids
History of Enterococcus Bacteremia secondary to acute cholecystitis complicated by discitis and vegetation on defibrillator wire
- Unable to receive surgical interventions prior as hx thrombocytopenia 62 at prior hospital. T tube placed for cholecystitis
- Blood cultures
- PICC line ripped out at senior care
- Restart daptomycin here
- ID appreciated
- DAYA pending ptl level >50 per cardiology
- Work up for low ptl per hemeonc
- Consult psych for increased agitation and dementia
- Contact son for further information
- Requesting records from [facility]
Acute on chronic Thombocytopenia
- Baseline 50,000, today 25
- Check DIC panel, HIT panel, B12, folate, monitor for bleeding per hemeonc
- Hold aspirin
MINDI on CKD stage 3a
-Cr 3.3, baseline 1.4
- Nephrology consulted
- Gentle fluids
- Urine studies and serum osm pending
Agitation/dementia
- Ripped out mid-line
- Uncooperative this am
- Psych appreciated
Macrocytic anemia
- 12.5-> 10.6
- MCV 95.6
- Check folate and B12
- No signs of active bleed
- Repeat CBC in PM
CAD
� History [place] with quadruple bypass
- Continue statin, hold aspirin with MINDI
HFpEF
� BNP 912
� Continue carvedilol, iso-Sorbide
� Hold potassium, torsemide
- Cardiology following for repeat DAYA
- Last echo unknown
Essential hypertension
� Continue carvedilol, isosorbide
Hyperlipidemia
� Continue statin
GERD
� Continue pantoprazole
BPH
� Bladder scan/straight cath protocol
Lumbar spondylolithiasis
� Hold tramadol
Anticipated Discharge: > 48 hours
Subjective/Interval History
-
Date of Service: June 25, 2024
Objective Data
-
Labs:
Laboratory Results
06/25/24 06/25/24
04:15 11:08
WBC 6.2
Hgb 10.6 L
Hct 30.5 L
Plt Count 25 L*
PT Pending
INR Pending
APTT Pending
Vital Signs:
Vital Signs
Temp Pulse Resp BP Pulse Ox
97.8 F 113 16 136/57 96
06/25/24 07:44 06/25/24 10:14 06/25/24 10:14 06/25/24 10:14 06/25/24 08:24
I&O
06/24/24 06/25/24 06/26/24
06:59 06:59 06:59
Intake Total 210 / 210
Output Total 70 / 70 200 / 200
Balance -70 / -70
Physical Exam
-
General: Conversant
HEENT: Normocephalic
Respiratory: Rhonchi and Crackles
Cardiac: Regular Rhythm and S1/S2
GI: Soft and Nontender
Musculoskeletal: No Edema
Skin: Warm
Neuro: Awake and Alert; Negative Oriented
Psych: Confused
[2024-06-25 11:41] LABS: D-Dimer 2.71 ug/mlFEU (0.00-0.50)
[2024-06-25 11:44] LABS: Fibrinogen 134 MG/DL (199-459)
[2024-06-25 11:48] LABS: Osmolality Serum 292 mOsm/kg (275-300)
--- NOTE | 2024-06-25 12:04 | CON.ID ---
Consultation
-
Date/Time Consultation Requested: 06/25/2024 0102
Date/Time Consultation Performed: 08/25/2023 1200
Requesting Provider: Meenu Bustos
Performing Provider: Dr. Ramirez
Reason for Consultation: Bacteremia, discitis
Chief Complaint / Past History
History of Present Illness
Sharif Morrison is an 83-year-old man with a significant past medical history of recent prolonged hospital stay (5 weeks) for enterococcal bacteremia, suspected endocarditis, being evaluated for the same.
During that hospital stay, he was also treated for acute cholecystitis, with T-tube placement. Current history is obtained from chart review, along with patient interview.
Patient is found to be able to provide very little in the way of information, but notes that he initially presented to [facility] with abdominal pain. While there, he was found to have cholecystitis. He has a history of chronic
thrombocytopenia, and ultimately no surgery was performed, but rather a T-tube was placed. Evidently, while hospitalized, he was found to have enterococcal bacteremia, and reportedly a cardiac lead vegetation, and was discharged to complete a
6-week course of daptomycin, with a tentative end date of 06/29.
At this point in time, the patient notes a cough, with minimal sputum production. He is not sure whether he has had any fevers or chills. He reports that his breathing is comfortable. He denies any abdominal pain. He notes chronic low back pain,
which has been present for the past 2 years or so.
Past History
Additional Past Medical History:
CAD
CKD stage III
HTN
Chronic thrombocytopenia
CHF
Dyslipidemia
BPH
Lumbar spondylolisthesis
Additional Past Surgical History:
CABG
AICD
T-tube placement
Allergy History:
No Known Allergies Allergy (Unverified 06/24/24 21:14)
Medications Reviewed: Yes
Current Antibiotics:
Daptomycin 550 mg IV every 24 hours
Zosyn 2.25 g IV every 6 hours
Social History
Tobacco: Non-Smoker
Alcohol: None
Drug: None
Personal:
Living: Intermediate
Employment: Retired
Family History
Family History: Not Pertinent
Review of Systems
Vital Signs
Temp Pulse Resp BP Pulse Ox
97.9 F 113 16 136/57 96
06/25/24 11:30 06/25/24 10:14 06/25/24 10:14 06/25/24 10:14 06/25/24 08:24
Physical Exam
Physical Exam
Constitutional: No Acute Distress, Comfortable, Chronically Ill and Non-toxic
Head: Normocephalic
Eyes: Pupils Equal, Pupils Round, No Conjunctival Hemorrhage and Sclera Anicteric
Oral: No Thrush and No Ulcers
Cardiovascular: Regular Rate and S1/S2; Negative S3/S4 or Murmur
Pulmonary: Clear; Negative Wheezes, Rales or Rhonchi
Gastrointestinal: Soft, Non Tender, Non Distended, Normal Bowel Sounds, No Rebound, No Guarding and Other (Cholecystostomy tube in place with minimal drainage.)
Extremities: Negative Edema, Clubbing, Erythema, Splinter Hemorrhage, Venous Insufficiency or Janeway Lesions
Musculoskeletal: Negative Joint Swelling
Skin: Warm and Dry; Negative Rash or Jaundice
Neurological: Awake and Alert
Psychological: Calm
Lab / Diagnostic Study Results
06/25/24 04:15
06/24/24 21:47
Abs Immat Gran (auto) 0.0 10^3/uL (0-0.05) 06/24/24 21:47
Absolute Neuts (auto) 5.4 10^3/uL (1.4-6.5) 06/24/24 21:47
Absolute Lymphs (auto) 1.5 10^3/uL (1.2-3.4) 06/24/24 21:47
Absolute Monos (auto) 0.5 10^3/uL (0.1-0.6) 06/24/24 21:47
Absolute Basos (auto) 0.0 10^3/uL (0-0.2) 06/24/24 21:47
Immature Gran % 0.5 % (0-0.5) 06/24/24 21:47
Neutrophils % 65.0 % (42.2-75.2) 06/24/24 21:47
Lymphocytes % 17.9 % (20.5-51.1) L 06/24/24 21:47
Monocytes % 5.7 % (1.7-9.3) 06/24/24 21:47
Eosinophils % 10.5 % (0-6) H 06/24/24 21:47
Basophils % 0.4 % (0-2) 06/24/24 21:47
PT 18.4 Sec (11.4-14.6) H 06/25/24 11:08
INR 1.48 06/25/24 11:08
Lactic Acid 1.5 mmol/L (0.7-2.0) 06/24/24 22:47
Microbiology Results
Micro:
06/25/24 01:45 MRSA Screen - Pending
Nose
06/24/24 22:47 Blood Culture - Pending
Blood/Venous
06/24/24 22:47 Blood Culture - Pending
Blood/Venous
Imaging:
06/24/2024 CXR (2 view): Right lower lobe opacification is seen, suspicious for pneumonia. Cardiomediastinal silhouette are within the limits of normal. No pneumothorax, pleural effusion or mediastinal shift noted. A left-sided cardiac device is
seen with intact wires. Sternal wires are also noted. Please see full dictation for additional detail.
06/25/2024 CT head without contrast: No acute intracranial abnormalities noted. Mild atrophy and mild chronic small vessel changes noted. Please see full dictation for additional detail.
Assessment / Plan
History of enterococcal bacteremia
Presumed endocarditis
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
Recent cholecystitis with T-tube placement
Right lower lobe PNA
CAD
CKD stage III
HTN
Chronic thrombocytopenia
CHF
Dyslipidemia
BPH
Lumbar spondylolisthesis
Recommendations:
Continue with empiric Zosyn.
Continue with prior course of daptomycin.
Records from [facility] have been requested. Will review when obtained to determine further course of antibiotics for prior enterococcal bacteremia and associated infection.
Sputum culture has been ordered. Blood cultures have been obtained.
Since patient has been on a course of daptomycin; will check CPK in AM.
Additionally, check ESR and CRP in AM.
Check CBC with differential in AM, given elevated eosinophils.
[2024-06-25 12:51] LABS: % Basophils 0.3 % (0-2); % Eosinophils 11.4 % (0-6); % Immature Granulocytes 0.5 % (0-0.5); % Lymphocytes 20.1 % (20.5-51.1); % Monocytes 6.4 % (1.7-9.3); % Neutrophils 61.3 % (42.2-75.2); Absolute Eosinophils 0.7 10^3/uL (0-0.7); Absolute Lymphocytes 1.3 10^3/uL (1.2-3.4); Absolute Monocytes 0.4 10^3/uL (0.1-0.6); Nucleated Red Blood Cells % 0 % (-)
--- NOTE | 2024-06-25 13:20 | CS.PSYCHR ---
Consult Summary - Psychiatry
-
Pt is an 83 yo who presented from [facility] with productive cough and confusion for 4- 5 days. Hx was noted provided to ER by pt's son. Pt had an extended hospital stay at [facility] for acute cholecystitis, vegetation on pacer wire,
Enterococcus bacteremia; was discharged to [facility] on 06/12. Since admission here, pt has had worsening confusion and agitation, pulled out his IV. Pt was refusing all care, refusing all meds earlier this morning, noted to be alert,
oriented x 1-2. On exam, pt currently calm, sitting up in chair, allowing IV to be placed. No agitation at present, answering questions coherently, though hesitant, poor historian. Pt was not given any med for agitation per the chart.
PMH: CAD status post CABG, diastolic heart failure with ICD, CKD 3, HTN, chronic thrombocytopenia. QTc 462 on 06/24
Psych Hx: none noted
SH: unable to obtain
MSE: alert, calm, cooperative at the time of exam, speech coherent, no signs of psychosis. Affect appropriate. No current agitation. Insight appears limited
Imp: Delirium with agitation, R/o dementia
Rec: po Risperidone as needed if agitation recurs. IM Zyprexa 2.5 to 5 mg prn would be an alternative if po meds refused
will follow
--- NOTE | 2024-06-25 14:19 | CARDSERVLU ---
Echocardiogram with Lumason completed after protocol screening completed. Allergies verified.
Patent IV site: left hand
IV site flushed with 0.9% NaCl pre and post administration.
Diluted bolus method utilized to enhance visualization of ventricular loya.
Total volume given: __4.0__ mL
Patient tolerated all procedures well without complications.
[2024-06-25 15:52] LABS: Hematocrit 33.4 % (39.0-52.0); Hemoglobin 11.7 g/dL (13.0-18.0); Mean Corpuscular Hgb 34.6 pg (27.0-31.0); Mean Corpuscular Volume 98.8 fL (80.0-94.0); Mean Platelet Volume 12.4 fL (7.4-10.4); Platelet Count 38 10^3/uL (130-400); Red Blood Cell Count 3.38 10^6/uL (4.70-6.10); Red Cell Dist. Width 13.5 % (11.5-14.5); White Blood Cell Count 8.5 10^3/uL (4.8-10.8)
[2024-06-25 16:34] LABS: Urine Albumin Trace (Neg - Trace); Urine Bilirubin Negative (Negative); Urine Character Clear (Clear); Urine Color Yellow; Urine Glucose Negative (Negative); Urine Ketone Negative (Negative); Urine Leukocyte Negative (Negative); Urine Nitrite Negative (Negative); Urine Occult Blood 2+ (Negative); Urine Specific Gravity 1.005 (<1.030); Urine Urobilinogen Negative (Neg - 1+)
[2024-06-25 16:41] LABS: Osmolality Urine 194 mOsm/kg (300-900)
[2024-06-25 16:49] LABS: Urine Bacteria Few (Negative); Urine Squamous Cell 0-2 /LPF (Few); Urine White Cell 0-2 /HPF (0-5)
[2024-06-25 17:01] LABS: Folate 18.6 ng/ml (2.76-20); Vitamin B12 915 pg/ml (239-931)
[2024-06-25] MEDS: CRESTOR PO (20:08)
--- NOTE | 2024-06-25 20:09 | PTCARENOTE ---
Patient refusing all PO medications until dayshift MD come to speak to him. Patient very confused and thinks he is in [place]. Education provided to why he is prescribed meds- unable to comprehend.
[2024-06-25] MEDS: RISPERDAL M-TAB (ORALLY DISINTEGRATING) 0.5 MG PO (21:37)
[2024-06-25] MEDS: CRESTOR 20 MG PO (21:38)
[2024-06-25 22:54] LABS: Urine Protein 51 mg/dl (0-12); Urine Sodium 55 mmol/L (30-90)
[2024-06-26] VITALS (17 sets, daily range): BP systolic 102–141; BP diastolic 52–112; PULSE 96–120; O2SAT 92–93; BMI 32.2
[2024-06-26] MEDS: NSS IV (03:19)
[2024-06-26 04:30] LABS: ALT (SGPT) 20 U/L (0-50); AST (SGOT) 26 U/L (17-59); Albumin 3.7 g/dl (3.5-5.0); Alkaline Phosphatase 42 U/L (38-126); Blood Urea Nitrogen 18 mg/dl (9-20); Calcium 9.5 mg/dl (8.4-10.2); Carbon Dioxide 28 mmol/L (22-30); Chloride 104 mmol/L (98-107); Creatine Phosphokinase 47 U/L (55-170); Estimated Creatinine Clearance 17 ml/min; Glucose 116 mg/dl (70-99); Hematocrit 33.7 % (39.0-52.0); Hemoglobin 11.7 g/dL (13.0-18.0); Mean Corp Hgb Conc. 34.7 g/dL (33.0-37.0); Mean Corpuscular Hgb 33.7 pg (27.0-31.0); Mean Corpuscular Volume 97.1 fL (80.0-94.0); Mean Platelet Volume 12.4 fL (7.4-10.4); Platelet Count 33 10^3/uL (130-400); Potassium 3.8 mmol/L (3.5-5.1); Red Blood Cell Count 3.47 10^6/uL (4.70-6.10); Red Cell Dist. Width 13.5 % (11.5-14.5); Sodium 143 mmol/L (135-145); Total Bilirubin 1.2 mg/dl (0.2-1.3); Total Protein 5.5 g/dl (6.3-8.2); White Blood Cell Count 9.1 10^3/uL (4.8-10.8); eGFR 21.44
[2024-06-26 04:33] LABS: C-Reactive Protein < 5.00 mg/L (0.0-10.00)
[2024-06-26] MEDS: ZOSYN 50 IV ×3 (05:06→18:05)
--- NOTE | 2024-06-26 06:00 | PTCARENOTE ---
Patient eventually cooperative with taking PO meds. Still very confused, paranoid, and restless. Patient with worsening lung sounds as the night went on- coarse with crackles with SARMIENTO. Patient with CHF and has been on NS 80ml/hr x 48 hours. call center associate
provider asked if ok to d/c fluids. Order placed.
[2024-06-26 06:49] LABS: % Basophils 0.2 % (0-2); % Immature Granulocytes 0.7 % (0-0.5); % Lymphocytes 18.3 % (20.5-51.1); % Monocytes 4.3 % (1.7-9.3); % Neutrophils 66.5 % (42.2-75.2); Absolute Eosinophils 0.9 10^3/uL (0-0.7); Absolute Immature Granulocytes 0.1 10^3/uL (0-0.05); Absolute Lymphocytes 1.7 10^3/uL (1.2-3.4); Absolute Monocytes 0.4 10^3/uL (0.1-0.6); Nucleated Red Blood Cells % 0 % (-)
[2024-06-26 07:09] LABS: Erythrocyte Sed Rate 7 mm/hour (0-20)
--- NOTE | 2024-06-26 08:06 | W.PN.ONC2 ---
Documented by User: [email or web address] Cha 06/26/24 10:55
Today's Communication / Plan
-
transfuse platelets <10, prn <50 if bleeding
transfuse cryo prn bleeding if fibrinogen <150
f/u HIT panel,
monitor for bleeding
avoid NSAIDs, anticoagulation, and antiplatelet for platelet count <50,000
Abx per ID
MINDI/CKD per nephrology
Impression
Impression
LLL PNA
hypotension
recent hospitalization at [facility] for management of Enterococcus Bacteremia d/t acute cholecystitis c/b discitis and infected defibrillator wire. s/p percutaneous analy tube
acute on chronic thrombocytopenia -he reports recent baseline 50,000 and chronic thrombocytopenia over the past 15 years of unknown etiology. No B12 or folate deficiency. Acute thrombocytopenia likely consumptive in setting of infection
hypofibrinogenemia
Renal insufficiency
Subjective/Objective
Subjective
denies bleeding
Vital Signs:
Vital Signs
Temp Pulse Resp BP Pulse Ox
97.8 F 93 20 127/53 97
06/26/24 07:05 06/26/24 06:02 06/26/24 06:02 06/26/24 06:02 06/26/24 04:08
Lab Results:
Laboratory Data
WBC 9.1 10^3/uL (4.8-10.8) 06/26/24 04:05
Hgb 11.7 g/dL (13.0-18.0) L 06/26/24 04:05
Plt Count 33 10^3/uL (130-400) L 06/26/24 04:05
PT 18.4 Sec (11.4-14.6) H 06/25/24 11:08
INR 1.48 06/25/24 11:08
APTT 30.9 Sec (23.4-35.0) 06/25/24 11:08
eGFR 21.44 11/08/24 04:05
Physical Exam
Examined sitting in chair no distress
HEENT: Moist Mucous Membranes; Negative Jaundice
Cardiology: S1 and S2
Pulmonary: Rhonchi
GI: Soft and Other (perc analy tube)
Extremities: Pulses Present; Negative Edema
Neurology: Non Focal
Skin: Warm
Psych: Calm
Orders
Orders
Orders From Last 24 Hours
06/25/24 11:08
D-Dimer Routine
Fibrinogen Routine
HIT [Heparin Associated Platelet Ab] [S] Routine
INR [Prothrombin Time] Routine
PTT Routine
Serum Osmolality Routine
06/25/24 15:28
B12 [Vitamin B12] Routine
Folate Routine

Documented by User: Raul Sanchez MD 06/26/24 13:23
Plan
Plan
transfuse platelets <10, prn <50 if bleeding
transfuse cryo prn bleeding if fibrinogen <150
f/u HIT panel,
monitor for bleeding
avoid NSAIDs, anticoagulation, and antiplatelet for platelet count <50,000
Abx per ID
IMNDI/CKD per nephrology
Hematoloy Addendum:
Agree w/ MASONRY INSPECTOR note and plan as outlined
[2024-06-26] MEDS: COREG 6.25 MG PO ×2 (08:07→20:03)
[2024-06-26] MEDS: IMDUR (EXTENDED RELEASE) 30 MG PO (08:08)
[2024-06-26] MEDS: RISPERDAL M-TAB (ORALLY DISINTEGRATING) 0.5 MG PO ×3 (08:08→21:26)
[2024-06-26] MEDS: MUCINEX 600 MG PO ×2 (08:17→20:03)
--- NOTE | 2024-06-26 08:31 | W.PN.CD ---
Today's Communication / Plan
-
no evidence of vegetation within limits of TTE here on 06/25, and not a good candidate for DAYA (and lead extraction) given age, and significant thrombocytopenia
lifelong suppressive Abx would be reasonable longterm plan for this patient
hold home entresto and torsemide, and trend Cr
Impression / Plan
-
Pneumonia:
-on IV abx
-management per primary team. ID is consulted.
Recent enterococcus bacteremia, and report of device lead vegetation
-on IV daptomycin, with ID consulted: tentative end date 06/29
-Bcx here 06/24: no growth to date
-no evidence of vegetation within limits of TTE here on 06/25, and not a good candidate for DAYA (and lead extraction) given age, and significant thrombocytopenia
-lifelong suppressive Abx would be reasonable salvage determiner plan for this patient
MINDI on CKD: improving s/p IV fluids
-baseline unknown, nephrology is following
-holding home entresto and torsemide
CAD with hx CABG:
-seems to be stable without angina
-ASA held due to thrombocytopenia
CHF: chronic HFrEF
-does not appear volume overloaded to my assessment
-monitor volume with torsemide and entresto held
-to resume once renal function improves
ICM EF 35-40% on echo 2022 from [facility]: now 25-30% with multiple recent infections (would not recommend cath, med mgmt only)
-cont coreg
-entresto and torsemide held: to resume once renal function improves
-no SGLT2i or MRA due to MINDI
Thrombocytopenia:
-severe
-heme consulted
Physical Exam
Vital Signs/Labs
Vital Signs
Temp Pulse Resp BP Pulse Ox
97.8 F 96 20 125/106 97
06/26/24 07:05 06/26/24 08:07 06/26/24 06:02 06/26/24 08:07 06/26/24 04:08
06/25/24 06/26/24 06/27/24
06:59 06:59 06:59
Actual Weight 77.8 kg 77.2 kg
06/26/24 04:05
06/26/24 04:05
PT 18.4 Sec (11.4-14.6) H 06/25/24 11:08
INR 1.48 06/25/24 11:08
APTT 30.9 Sec (23.4-35.0) 06/25/24 11:08
06/24/24
21:47
Jxw-P-Zndjgkjxhcq Pept 912
LAB Results
06/24/24
21:47
Troponin I 0.025
Physical Exam
Constitutional: No acute distress and Comfortable
EENT: Moist mucous membranes
Cardiovascular: Rhythm & rate is regular, Pedal edema is absent, JVD pressure is normal and Systolic murmur absent
Respiratory: Respiratory effort normal and Lungs clear to auscul.
Neuro/Psych: Alert
Data Reviewed
-
Date of Service: June 26, 2024
EKG: Other (As, Ad Operations Coordinator)
Echo: Tracing Personally Visualized and interpreted
Labs: Labs Reviewed by me
--- NOTE | 2024-06-26 08:48 | W.PN.NEPH.PH ---
Today's Communication / Plan
-
Follow-up BMP
Hold Entresto and diuretics for now
monitor uop and daily weight for volume status
Assessment/Plan
-
Assessment
MINDI
CKD 3A, 1.44
Discitis
Pacer wire vegetation
Cholecystitis/TTube
Recent enterococcal bacteremia
Thrombocytopenia
Confusion, uncooperative
Plan
Follow BMP
Creatinine down to 2.8, grossly normal
Hemodynamically stay
Psychiatric consultation
Urinalysis notes 2+ blood with only trace proteinuria
Fractional excretion of sodium is not consistent with prerenal stimulus
Antibiotics per infectious disease, possible PNA
-
-
Date of Service: June 26, 2024
CC / HPI / ROS
-
Chief Complaint:
Acute kidney injury
History of Present Illness:
Creatinine down to 2.8
Hemodynamically
On daptomycin re: enterococcal bacteremia
Review of Systems:
No fevers
Nonoliguric
Labs
-
Labs:
WBC 9.1 10^3/uL (4.8-10.8) 06/26/24 04:05
RBC 3.47 10^6/uL (4.70-6.10) L 06/26/24 04:05
Hgb 11.7 g/dL (13.0-18.0) L 06/26/24 04:05
Hct 33.7 % (39.0-52.0) L 06/26/24 04:05
Plt Count 33 10^3/uL (130-400) L 06/26/24 04:05
Sodium 143 mmol/L (135-145) 06/26/24 04:05
Potassium 3.8 mmol/L (3.5-5.1) 06/26/24 04:05
Chloride 104 mmol/L (98-107) 06/26/24 04:05
Carbon Dioxide 28 mmol/L (22-30) 06/26/24 04:05
BUN 18 mg/dl (9-20) 06/26/24 04:05
Creatinine 2.8 mg/dL (0.7-1.3) H 06/26/24 04:05
eGFR 21.44 06/26/24 04:05
Glucose 116 mg/dl (70-99) H 06/26/24 04:05
Calcium 9.5 mg/dl (8.4-10.2) 06/26/24 04:05
Bsj-D-Twrqekejdqp Pept 912 pg/ml 06/24/24 21:47
Albumin 3.7 g/dl (3.5-5.0) 06/26/24 04:05
Physical Exam
-
Vital Signs:
Vital Signs
Temp Pulse Resp BP Pulse Ox
97.8 F 96 20 125/106 97
06/26/24 07:05 06/26/24 08:07 06/26/24 06:02 06/26/24 08:07 06/26/24 04:08
Cardiovascular:: Regular rate and rhythm
Respiratory:: Bilateral: Coarse
Lung Excursion:: Normal
Abdomen:: Nontender
Bowel Sounds:: Decreased
Extremity Edema:: None: Bilateral:
Tavera Catheter: No
[2024-06-26] MEDS: PROTONIX PO (10:48)
[2024-06-26] MEDS: CUBICIN 11 MG IV (10:49)
--- NOTE | 2024-06-26 10:59 | PN.CDI ---
CDI
- -
CDI:
Physician Documentation Request
Admit Date: 06/24/24 23:41
Dear Doctor,
Please review the following and provide your response in the progress notes.
Clinical Indicators:
- 06/26 Cardiology 'CHF: chronic HFrEF'
- 06/25 PN 'HFpEF'
- 06/25 Echo EF 25-30%
Please provide further specificity regarding the most likely type of CHF you are evaluating, treating or monitoring.
HFrEF
HFpEF
Other (please specify)
Use of terms such as suspected, likely, concern for, or probable (associated with a specific diagnosis that is being evaluated, monitored, or treated as if it exists) are acceptable and can be coded in the inpatient setting, when documented at the
time of discharge.
Thank you,
Vivian Mcconnell RN
CDI Specialist
Please use your independent medical judgment in providing your response.
--- NOTE | 2024-06-26 12:24 | W.PN.ID1 ---
Date of Service
Date of Service: June 26, 2024
Today's Communication
Continue abx. Await old records.
Assessment / Plan
History of enterococcal bacteremia
Presumed endocarditis
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
Recent cholecystitis with T-tube placement
Right lower lobe PNA
CAD
CKD stage III
HTN
Chronic thrombocytopenia
CHF
Dyslipidemia
BPH
Lumbar spondylolisthesis
Recommendations:
Continue with empiric Zosyn.
Continue with prior course of daptomycin.
Records from [facility] have been requested. Will review when obtained to determine further course of antibiotics for prior enterococcal bacteremia and associated infection.
Sputum culture has been ordered, but not yet collected. Blood cultures pending.
Chief Complaint
-: Bacteremia
Subjective / Review of Systems
Patient seen and examined. Daughter present. Notes that since admission to hospital approximately 5 weeks ago they have noted a cognitive decline. Patient currently denies any fevers or chills.
Vital Signs / Physical Exam
Vital Signs
Vital Signs
Temp Pulse Resp BP Pulse Ox
97.8 F 100 32 124/60 92
06/26/24 11:05 06/26/24 10:00 06/26/24 10:00 06/26/24 10:00 06/26/24 10:00
Physical Exam
Constitutional: Comfortable, Chronically Ill and Non-toxic
Eyes: No Conjunctival Hemorrhage and Sclera Anicteric
Cardiovascular: Regular Rate and S1/S2; Negative S3/S4
Pulmonary: Rhonchi (scattered) and Coarse
Gastrointestinal: Soft, Non Tender and Non Distended
Neurological: Awake and Alert
Psychological: Confused
Objective Data
Lab Data
Lab Results
06/26/24 04:05
06/26/24 04:05
ESR 7 mm/hour (0-20) 06/26/24 04:05
PT 18.4 Sec (11.4-14.6) H 06/25/24 11:08
INR 1.48 06/25/24 11:08
APTT 30.9 Sec (23.4-35.0) 06/25/24 11:08
Estimated Creat Clear 17 ml/min 06/26/24 04:05
Lactic Acid 1.5 mmol/L (0.7-2.0) 06/24/24 22:47
Total Bilirubin 1.2 mg/dl (0.2-1.3) 06/26/24 04:05
AST 26 U/L (17-59) 06/26/24 04:05
ALT 20 U/L (0-50) 06/26/24 04:05
Alkaline Phosphatase 42 U/L (38-126) 06/26/24 04:05
C-Reactive Protein < 5.00 mg/L (0.0-10.00) 06/26/24 04:05
Most recent labs reviewed.
Micro Results:
06/25/24 01:45 MRSA Screen - Final
Nose No Methicillin Resistant Staphylococcus aureus isolated.
06/24/24 22:47 Blood Culture - Preliminary
Blood/Venous No Growth in 24 hours- Final report to follow
06/24/24 22:47 Blood Culture - Preliminary
Blood/Venous No Growth in 24 hours- Final report to follow
Imaging:
06/24/2024 CXR (2 view): Right lower lobe opacification is seen, suspicious for pneumonia. Cardiomediastinal silhouette are within the limits of normal. No pneumothorax, pleural effusion or mediastinal shift noted. A left-sided cardiac device is
seen with intact wires. Sternal wires are also noted. Please see full dictation for additional detail.
06/25/2024 CT head without contrast: No acute intracranial abnormalities noted. Mild atrophy and mild chronic small vessel changes noted. Please see full dictation for additional detail.
Care Review
Plan reviewed with: Physician (Resident)
--- NOTE | 2024-06-26 13:19 | W.PN.HOSP.TC ---
Addendum entered and electronically signed by Yair Jacob MD 06/26/24 14:29:
Imaging
CXR
IMPRESSION:
Left lower lobe opacification suspicious for pneumonia. Follow-up imaging recommended to confirm complete resolution.
Head CT
IMPRESSION:
1. No acute intracranial abnormalities appreciated.
2. Mild atrophy and mild chronic small vessel change.
Physical Exam
NAD, resting comfortably in bed
Scleral anicteric
Moist mucous membranes
No JVD
CTA bilateral
Normal S1-S2 no murmurs
Soft nontender nondistended bowel sounds active
No peripheral pitting edema
Moves extremities spontaneously
AAOx1-2
Assessment and Plan
Acute hypoxemic respiratory secondary to pneumonia
-Recently hospitalized for Enterococcus bacteremia, on long-term IV antibiotics with daptomycin with end date 06/29
-As daptomycin causes MRSA this will be continued
-Add additional broad-spectrum antibiotic with Zosyn
-ID consulted
-Follow-up on sputum and blood cultures
-Wean O2
-Incentive spirometer
MINDI
-Per documentation baseline creat 1.4
-Not sure what baseline GFR was unclear if this is MINDI on CKD versus progressive CKD however likely the former
-Check urine studies with urine analysis urine sodium creatinine protein and urine OSM
-Monitor urinary output
-Bladder scan
-Nephrology to see
Enterococcus bacteremia from outside hospital for suspected endocarditis
-Midline pulled out
-Consult IV team to place
-Continue daptomycin
-ID consulted
-DAYA once plt greater than 50 per cardiology
Thrombocytopenia�chronic
-Can check HIV hepatitis C B12 folate
-Peripheral smear
-Hematology consulted
-Transfuse platelets for active bleeding with platelet count of less than 30,000
-Transfuse platelets without active bleeding for platelet count less than than 10,000
CAD
-S/p quadruple bypass
-Not on ASA as plt less than 50,000
-Continue HI statin
Original Note:
Today's Communication/Plan
-
Continue antibiotics, risperidone as needed for agitation, gentle fluids for MINDI, attempt to get prior records
Assessment / Plan
Assessment / Plan
Acute hypoxemic respiratory distress secondary to pneumonia
- Recently hospitalized for Enterococcus bacteremia, on long-term IV antibiotics with daptomycin with end date 06/29
� Chest x-ray left lower lobe opacification suspicious for pneumonia
- Cough for past 4 days, bilateral rhonchi/crackles throughout
- Lactic acid 1.5
- Blood cultures pending
- Zosyn, cont daptomycin
- Cont. gentle fluids
- Wean O2
- Incentive spirometer
MINDI on CKD stage 3a
-Cr 3.3, baseline 1.4
- Nephrology consulted
- FeNa no consistent with pre-renal stimulus
History of Enterococcus Bacteremia secondary to acute cholecystitis complicated by discitis and vegetation on defibrillator wire
- Unable to receive surgical interventions prior as hx thrombocytopenia 62 at prior hospital. T tube placed for cholecystitis
- Blood cultures
- PICC line ripped out on 06/24 at [facility] rehab
- Restart daptomycin here
- ID appreciated
- DAYA pending ptl level >50 per cardiology. No evidence of vegetation on 2-D echo
- Work up for low ptl per hemeonc
- Consult psych for increased agitation and dementia
- Son said no dementia or agitation on baseline
- Records from [facility] pending
Acute on chronic Thombocytopenia
- Baseline 50,000, today 25
- Transfuse platelets <10 , or with active bleeding <50 bleeding
- Transfuse cryoprecipitate if fibrinogen less than 150
- Hold aspirin
Agitation/dementia vs delirium
� Patient's son said patient had mild cognitive deficits, but never agitation or confusion. Stated this all began Saturday to his knowledge.
- Ripped out mid-line
- Uncooperative this am
- Psych appreciated
- Rispirdone 2.5 PO or olazipine IM PRN for agitation per Psych
Macrocytic anemia
- MCV 95.6
- Folate B12 within normal limits
- No signs of active bleed
- H&H stable
CAD
� History [place] with quadruple bypass
- Continue statin, hold aspirin with thrombocytopenia
HFpEF
� BNP 912
� Continue carvedilol, iso-Sorbide
� Hold potassium, torsemide
- EF 25 to 30%
- Hold home Entresto and torsemide and trend creatinine per cardiology
- Last echo unknown
Essential hypertension
� Continue carvedilol, isosorbide
Hyperlipidemia
� Continue statin
GERD
� Continue pantoprazole
BPH
� Bladder scan/straight cath protocol
Lumbar spondylolithiasis
� Hold tramadol
DVT lovenox
DNR
Anticipated Discharge: > 48 hours
Subjective/Interval History
-
Date of Service: June 26, 2024
Objective Data
-
Labs:
Laboratory Results
06/26/24
04:05
WBC 9.1
Hgb 11.7 L
Hct 33.7 L
Plt Count 33 L
Sodium 143
Potassium 3.8
Chloride 104
Carbon Dioxide 28
BUN 18
Creatinine 2.8 H
Glucose 116 H
Calcium 9.5
Total Bilirubin 1.2
AST 26
ALT 20
Alkaline Phosphatase 42
Vital Signs:
Vital Signs
Temp Pulse Resp BP Pulse Ox
97.8 F 100 32 124/60 92
06/26/24 11:05 06/26/24 10:00 06/26/24 10:00 06/26/24 10:00 06/26/24 10:00
I&O
06/25/24 06/26/24 06/27/24
06:59 06:59 06:59
Intake Total 1380 / 1380
Output Total 70 / 70 1750 / 1750 200 / 200
Balance -70 / -70 -370 / -370 -200 / -200
Review of Systems
-
History Source: Patient
Constitutional: Reports Fatigue
EENT: Reports No Symptoms Reported
Respiratory: Reports No Symptoms
Cardiac: Reports No Symptoms
Abdomen/GI: Reports No Symptoms
Genitourinary: Reports No Symptoms
Neuro: Reports No Symptoms
Physical Exam
-
General: No Apparent Distress
HEENT: Normocephalic
Respiratory: Crackles
Cardiac: Regular Rhythm and S1/S2
GI: Soft, Nontender, Nondistended and Normal Bowel Sounds
Musculoskeletal: No Edema
Skin: Warm
Neuro: Awake and Alert; Negative Oriented
Psych: Calm
--- NOTE | 2024-06-26 15:34 | W.PN.UPDATE ---
Update Note
Progress Note Update
Pt seen & evaluated, sitting up in chair by bed - required redirection as was trying to get out of chair, though was redirectable. Confused, not oriented - as per floor staff becomes intermittently agitated and has been difficult to redirect, keeps
trying to get out of bed and puts himself at risk of injury. Is too confused and agitated at those times to be meaningfully redirected.
Received prn dose of risperidone 0.5mg this AM and he tolerated this well, does seem to have been helpful as he is now redirectable when needed.
RIsperidone 0.25mg AM/0.5mg HS for the time being as agitation has been progressing and patient is placing himself at risk of injury. Can continue prn dosing and adjust standing dose as necessary.
--- NOTE | 2024-06-26 16:53 | CM ---
Patient from [facility] with Dx MINDI, Enterococcus bacteremia with suspected endocarditis, Agitation/dementia vs delirium, HF. U/S leg- DVT ruled out. O2 2L yesterday. Receiving IV Dapto, IV Zosyn. Per nurse assessment; confused, restless,
Medsitter. PT/OT recommend skilled rehab.
Spoke with patient's son Prem; he was presently traveling home and was in the airport. Son would like to discuss SNF options for short term rehab once he is home. Son hoping to find another SNF otherwise is receptive to patient returning to
[facility] if needed. CM agrees to assist in helping find alternate SNF if possible. Prem would like to wait and consider intermodal owner operator truck driver care options such as SNF or assisted living as patient progresses here, and is doubtful patient will be able to
return home.
Plan follow up with son again for SNF preferences and d/c planning.
[2024-06-26] MEDS: NSS 1000 IV (18:05)
--- NOTE | 2024-06-26 18:13 | PTCARENOTE ---
Patient intermittently agitated, AAOxself. VSS, Bed alarm and med sitter on. Patient within eye sight of nurses station. Continuing to closely monitor.
[2024-06-26] MEDS: CRESTOR 20 MG PO (21:26)
--- NOTE | 2024-06-26 22:57 | PTCARENOTE ---
Rec'd pt from previous RN. Pt confused, oriented to self only. Pleasant and cooperative at this time. Intermittently grabbing at wires and tubing, easily redirected via medsitter or staff. Pt able to take oral pills whole with water, but does
present with moist cough intermittently. Pt removed O2 tubing, 92% on RA. VSS. Assessment as documented.
[2024-06-27] VITALS (13 sets, daily range): BP systolic 98–143; BP diastolic 46–69
[2024-06-27] MEDS: ZOSYN 50 IV ×5 (00:06→22:28)
[2024-06-27 06:24] LABS: Blood Urea Nitrogen 15 mg/dl (9-20); Calcium 9.4 mg/dl (8.4-10.2); Carbon Dioxide 23 mmol/L (22-30); Chloride 108 mmol/L (98-107); Estimated Creatinine Clearance 22 ml/min; Glucose 115 mg/dl (70-99); Potassium 3.4 mmol/L (3.5-5.1); Sodium 146 mmol/L (135-145); eGFR 28.63
[2024-06-27 06:42] LABS: Hemoglobin 11.3 g/dL (13.0-18.0); Mean Corp Hgb Conc. 34.2 g/dL (33.0-37.0); Mean Corpuscular Hgb 33.6 pg (27.0-31.0); Mean Corpuscular Volume 98.2 fL (80.0-94.0); Platelet Count 44 10^3/uL (130-400); Red Blood Cell Count 3.36 10^6/uL (4.70-6.10); Red Cell Dist. Width 13.7 % (11.5-14.5); White Blood Cell Count 9.5 10^3/uL (4.8-10.8)
--- NOTE | 2024-06-27 08:18 | W.PN.NEPH.PH ---
Today's Communication / Plan
-
Follow BMP
Encourage p.o. fluid intake and withhold diuretics at this time
Assessment/Plan
-
Assessment
MINDI
CKD 3A, 1.44
Discitis
Pacer wire vegetation
Cholecystitis/TTube
Recent enterococcal bacteremia
Thrombocytopenia
Confusion, uncooperative
Plan
Follow BMP
Creatinine down to 2.2, non oliguric
Hemodynamically stable
Urinalysis notes 2+ blood with only trace proteinuria
Fractional excretion of sodium is not consistent with prerenal stimulus
Continue to withhold diuretics as patient has evolving hypernatremia and there is no evidence of volume overload,weights not recorded today
Would encourage free water intake (either po or 1/2NS)
entresto held
IV Antibiotics per infectious disease, possible PNA
-
-
Date of Service: June 27, 2024
CC / HPI / ROS
-
Chief Complaint:
Acute kidney injury
History of Present Illness:
Creatinine down to 2.2
Hemodynamically stable
On daptomycin re: enterococcal bacteremia
Zosyn re: PNA
Review of Systems:
No fevers
Nonoliguric
Labs
-
Labs:
WBC 9.5 10^3/uL (4.8-10.8) 06/27/24 05:32
RBC 3.36 10^6/uL (4.70-6.10) L 06/27/24 05:32
Hgb 11.3 g/dL (13.0-18.0) L 06/27/24 05:32
Hct 33.0 % (39.0-52.0) L 06/27/24 05:32
Plt Count 44 10^3/uL (130-400) L D 06/27/24 05:32
Sodium 146 mmol/L (135-145) H 06/27/24 05:32
Potassium 3.4 mmol/L (3.5-5.1) L 06/27/24 05:32
Chloride 108 mmol/L (98-107) H 06/27/24 05:32
Carbon Dioxide 23 mmol/L (22-30) 06/27/24 05:32
BUN 15 mg/dl (9-20) 06/27/24 05:32
Creatinine 2.2 mg/dL (0.7-1.3) H 06/27/24 05:32
eGFR 28.63 06/27/24 05:32
Glucose 115 mg/dl (70-99) H 06/27/24 05:32
Calcium 9.4 mg/dl (8.4-10.2) 06/27/24 05:32
Uwu-A-Zmlkaciekqk Pept 912 pg/ml 06/24/24 21:47
Albumin 3.7 g/dl (3.5-5.0) 06/26/24 04:05
Physical Exam
-
Vital Signs:
Vital Signs
Temp Pulse Resp BP Pulse Ox
97.8 F 79 24 124/46 95
06/27/24 03:33 06/27/24 06:00 06/27/24 06:00 06/27/24 06:00 06/27/24 06:00
Cardiovascular:: Regular rate and rhythm
Respiratory:: Bilateral: Coarse
Lung Excursion:: Normal
Abdomen:: Nontender
Bowel Sounds:: Decreased
Extremity Edema:: None: Bilateral:
Tavera Catheter: No
[2024-06-27] MEDS: NSS 1000 IV (08:23)
--- NOTE | 2024-06-27 10:00 | PTCARENOTE ---
Patient received from community health representative. Patient resting comfortably in bed. AAO mostly to self, VSS. No events noted overnight. Medsitter in room, bed alarm on. No test scheduled for today. Refused most medications but did take some after some
explaining importance. Call way in reach.
[2024-06-27] MEDS: PROTONIX PO ×2 (10:02→10:15)
[2024-06-27] MEDS: RISPERDAL M-TAB (ORALLY DISINTEGRATING) 0.25 MG PO (10:02)
[2024-06-27] MEDS: COREG 6.25 MG PO ×2 (10:02→20:32)
[2024-06-27] MEDS: CUBICIN 11 MG IV (10:03)
[2024-06-27] MEDS: MUCINEX PO ×2 (10:03→10:15)
[2024-06-27] MEDS: IMDUR (EXTENDED RELEASE) 30 MG PO (10:03)
--- NOTE | 2024-06-27 10:16 | W.PN.ID1 ---
Addendum entered and electronically signed by Monica Hoang MD 06/28/24 09:25:
correction: flash drive cannot be <del>respected</del> accepted due to risk of malware
Original Note:
Date of Service
Date of Service: June 27, 2024
Today's Communication
Continue with empiric Zosyn.
Continue with prior course of daptomycin through 06/29 - agree with plans for chronic suppression after this given non-removable suspected lead infection
replacement of midline not needed for ID purposes at this time
flash drive cannot be respected due to risk of malware
further records requested
Assessment / Plan
History of enterococcal bacteremia
Probable Endocarditis
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
Recent cholecystitis with T-tube placement
Possible Right lower lobe PNA
Thrombocytopenia - improving, chronic
Eosinophilia
AMS, agitation
MINDI on CAD
CKD stage III
HTN
Chronic thrombocytopenia
CHF
Dyslipidemia
BPH
Lumbar spondylolisthesis
Recommendations:
06/24 blood cultures no growth to date
Thrombocytopenia slowly improving
eosinophilia noted - recheck saturday
Continue with empiric Zosyn.
Continue with prior course of daptomycin through 06/29 - agree with plans for chronic suppression after this given non-removable suspected lead infection
replacement of midline not needed for ID purposes at this time
records faxed over last night at 4:30 - reviewed of note
DC summary provided but no ID notes, formal DAYA report (a summary is noted), mri lumbar spine blood culture reports
cholecystostomy tube placed 05/29 for cholecystitis and culture with e faecalis, subphrenic fluid collection also noted
E faecalis: amp and vanc sensitive, LIANE not released
note report of prior ceftriaxone/ampicillin - unclear indication for switch in provided records
DAYA nonmobile mass on ventricular pacemaker lead: thrombus vs vegetation
L2-L3 with degenerative changes - low suspicion for OM/discitis
Requested additional records which can be reviewed when available - anticipated saturday
Son brought in flash drive with additional records - spoke with [facility] and we cannot accept the flash drive per policy given risk of malware - I have suggested he print the documents and bring them in
No abdominal pain with deep palpation, no pressing need for further imaging at this moment
Sputum culture has been ordered, but patient unable to provide a sample thus far
Chief Complaint
-: Other (endocarditis)
Subjective / Review of Systems
afebrile
bp stable
recently agitated per RN
his is oriented to person and time but not place
has productive sounding cough
Vital Signs / Physical Exam
Vital Signs
Vital Signs
Temp Pulse Resp BP Pulse Ox
97.8 F 85 24 107/51 95
06/27/24 07:10 06/27/24 10:02 06/27/24 06:00 06/27/24 10:02 06/27/24 06:00
Physical Exam
Constitutional: No Acute Distress
Cardiovascular: Regular Rate and S1/S2; Negative Murmur or Rub
Pulmonary: Clear, Symmetric and Other (productive cough); Negative Wheezes or Rales
Gastrointestinal: Soft, Non Tender, Non Distended and Normal Bowel Sounds
Skin: Warm and Dry; Negative Rash or Jaundice
Lines: Other (pacemaker no erythema, warmth or tenderness)
Objective Data
Lab Data
Lab Results
06/27/24 05:32
06/27/24 05:32
ESR 7 mm/hour (0-20) 06/26/24 04:05
PT 18.4 Sec (11.4-14.6) H 06/25/24 11:08
INR 1.48 06/25/24 11:08
APTT 30.9 Sec (23.4-35.0) 06/25/24 11:08
Estimated Creat Clear 22 ml/min 06/27/24 05:32
Lactic Acid 1.5 mmol/L (0.7-2.0) 06/24/24 22:47
Total Bilirubin 1.2 mg/dl (0.2-1.3) 06/26/24 04:05
AST 26 U/L (17-59) 06/26/24 04:05
ALT 20 U/L (0-50) 06/26/24 04:05
Alkaline Phosphatase 42 U/L (38-126) 06/26/24 04:05
C-Reactive Protein < 5.00 mg/L (0.0-10.00) 06/26/24 04:05
Most recent labs reviewed.
Micro Results:
06/24/24 22:47 Blood Culture - Preliminary
Blood/Venous No Growth in 48 hours- Final report to follow
06/24/24 22:47 Blood Culture - Preliminary
Blood/Venous No Growth in 48 hours- Final report to follow
06/25/24 01:45 MRSA Screen - Final
Nose No Methicillin Resistant Staphylococcus aureus isolated.
Imaging:
06/24/2024 CXR (2 view): Right lower lobe opacification is seen, suspicious for pneumonia. Cardiomediastinal silhouette are within the limits of normal. No pneumothorax, pleural effusion or mediastinal shift noted. A left-sided cardiac device is
seen with intact wires. Sternal wires are also noted. Please see full dictation for additional detail.
06/25/2024 CT head without contrast: No acute intracranial abnormalities noted. Mild atrophy and mild chronic small vessel changes noted. Please see full dictation for additional detail.
Care Review
Plan reviewed with: Nurse
--- NOTE | 2024-06-27 10:52 | W.PN.CD ---
Today's Communication / Plan
-
We favor group home ATB suppression if ID agrees.
Impression / Plan
-
Pneumonia
Recent enterococcus bacteremia, and report of device lead vegetation
-on IV daptomycin, with ID consulted: tentative end date 06/29
-Bcx here 06/24: no growth to date
-no evidence of vegetation within limits of TTE here on 06/25, and not a good candidate for DAYA (and lead extraction) given age, and significant thrombocytopenia
-lifelong suppressive Abx would be reasonable group home plan for this patient
MINDI on CKD: improving s/p IV fluids
-baseline unknown, nephrology is following
-holding home entresto and torsemide
CAD with hx CABG:
-seems to be stable without angina
-ASA held due to thrombocytopenia
Chronic HFrEF
-does not appear volume overloaded to my assessment
-monitor volume with torsemide and entresto held
-to resume once renal function improves
ICM EF 35-40% on echo 2022 from [facility]: now 25-30% with multiple recent infections (would not recommend cath, med mgmt only)
-cont coreg
-entresto and torsemide held: to resume once renal function improves
-no SGLT2i or MRA due to MINDI
Thrombocytopenia:
-severe
-heme consulted
Subjective:
No c/o CP or dyspnea, supine and comfortable.
Physical Exam
Vital Signs/Labs
Vital Signs
Temp Pulse Resp BP Pulse Ox
97.8 F 85 24 107/51 95
06/27/24 07:10 06/27/24 10:02 06/27/24 06:00 06/27/24 10:02 06/27/24 06:00
06/26/24 06/27/24 06/28/24
06:59 06:59 06:59
Actual Weight 77.2 kg
06/27/24 05:32
06/27/24 05:32
PT 18.4 Sec (11.4-14.6) H 06/25/24 11:08
INR 1.48 06/25/24 11:08
APTT 30.9 Sec (23.4-35.0) 06/25/24 11:08
06/24/24
21:47
Izt-N-Xqvtswccxay Pept 912
LAB Results
06/24/24
21:47
Troponin I 0.025
Physical Exam
Constitutional: No acute distress
EENT: Anicteric
Cardiovascular: Rhythm & rate is regular and Pedal edema is absent
Respiratory: Respiratory effort normal and Lungs clear to auscul.
GI: Soft
Data Reviewed
-
Date of Service: June 27, 2024
--- NOTE | 2024-06-27 13:00 | W.PN.HOSP.TC ---
Addendum entered and electronically signed by Yair Jacob MD 06/27/24 14:09:
HFrEF with EF of 25-30%, compensated, nyha class II
-toresamide and entresto held
-once renal function close to base line resume or if becoming volume overloaded
Original Note:
Today's Communication/Plan
-
Assessment / Plan
Assessment / Plan
Imaging
CXR
IMPRESSION:
Left lower lobe opacification suspicious for pneumonia. Follow-up imaging recommended to confirm complete resolution.
Head CT
IMPRESSION:
1. No acute intracranial abnormalities appreciated.
2. Mild atrophy and mild chronic small vessel change.
Physical Exam
NAD, resting comfortably in bed
Scleral anicteric
Moist mucous membranes
No JVD
CTA bilateral
Normal S1-S2 no murmurs
Soft nontender nondistended bowel sounds active
No peripheral pitting edema
Moves extremities spontaneously
AAOx3 (person, place, year), knows that akil won the election
Assessment and Plan
Acute hypoxemic respiratory secondary to pneumonia
-Recently hospitalized for Enterococcus bacteremia, on long-term IV antibiotics with daptomycin with end date 06/29
-As daptomycin causes MRSA this will be continued
-Add additional broad-spectrum antibiotic with Zosyn
-ID consulted
-Follow-up on sputum and blood cultures
-Wean O2
-Incentive spirometer
MINDI
-Per documentation baseline creat 1.4
-Not sure what baseline GFR was unclear if this is MINDI on CKD versus progressive CKD however likely the former
-Check urine studies with urine analysis urine sodium creatinine protein and urine OSM
-Monitor urinary output
-Bladder scan
-Nephrology to see
Enterococcus bacteremia from outside hospital for suspected endocarditis
-Midline pulled out
-Consult IV team to place
-Continue daptomycin
-ID consulted
-DAYA once plt greater than 50 per cardiology
-ID and Cardiology both favoring buttermaker helper suppressive therapy, I do agree with this ced if the lead cannot be extracted
Thrombocytopenia�chronic
-Can check HIV hepatitis C B12 folate
-Peripheral smear
-Hematology consulted
-Transfuse platelets for active bleeding with platelet count of less than 30,000
-Transfuse platelets without active bleeding for platelet count less than than 10,000
CAD
-S/p quadruple bypass
-Not on ASA as plt less than 50,000
-Continue HI statin
HyperNatremia
-On isotonic fluids.
-Will stop, asked nursing to follow PO intake. If low start 1/2 NS at 75cc/hr
Hpokalemia
-Repelte PRN
Delirium
-Evaled by psych, start prn risperidone
Anticipated Discharge: 24 - 48 hours
Subjective/Interval History
-
Date of Service: June 27, 2024
seen and examined. no new comapltns. no acute overnight events
son at bedside. discussed plan of care with continuation of atb
monitoring electrolytes
following mental status
Objective Data
-
Labs:
Laboratory Results
06/27/24
05:32
WBC 9.5
Hgb 11.3 L
Hct 33.0 L
Plt Count 44 L D
Sodium 146 H
Potassium 3.4 L
Chloride 108 H
Carbon Dioxide 23
BUN 15
Creatinine 2.2 H
Glucose 115 H
Calcium 9.4
Vital Signs:
Vital Signs
Temp Pulse Resp BP Pulse Ox
97.6 F 85 24 107/51 92
06/27/24 11:07 06/27/24 10:02 06/27/24 06:00 06/27/24 10:02 06/27/24 12:27
I&O
06/26/24 06/27/24 06/28/24
06:59 06:59 06:59
Intake Total 1380 / 1380 1060 / 1060
Output Total 1750 / 1750 630 / 630
Balance -370 / -370 430 / 430
--- NOTE | 2024-06-27 15:10 | W.PN.UPDATE ---
Update Note
Progress Note Update
Mr. Morrison is an 83-year-old male with a past medical history of hypertension, thrombocytopenia, CABGx4, pacemaker, gallbladder dysfunction, congestive heart failure, who was admitted for productive cough and change in mental status. Psychiatry is
involved for management of delirium with agitation. He was initially prescribed PRN risperidone but this was changed to scheduled 0.25 mg. AM and 0.5 mg. HS. Chart reviewed, Spoke to nurse. He was apparently somewhat irritable and agitated prior
to the morning dose today, but has been better since receiving risperidone. Has been sleeping a lot. Has not needed PRN.
On exam, pt. was sleeping peacefully. Did not rouse to gentle touch on shoulder.
Today's labs: Na 146.9, K 3.4, Cr 2.2, Glug 115 WBC 9.5, Hgb 11.3 Hct 33% Plt 44K
Plan: Will continue risperidone as ordered, may reduce if overly sedated.
Psychiatry will continue to follow.
[2024-06-27] MEDS: RISPERDAL M-TAB (ORALLY DISINTEGRATING) 0.5 MG PO ×2 (16:10→21:10)
[2024-06-27] MEDS: 0.45%NACL 1000 IV (17:04)
--- NOTE | 2024-06-27 20:07 | PTCARENOTE ---
Pt continues with confusion, son at bedside. Pt tells this RN that he thinks he is here 'by accident'. Reorientation and comfort provided. Active toileting provided. VSS. Medsitter in place for pt safety. Q2T schedule in place to prevent further
skin breakdown, however pt favors R side and frequently turns self to R side.
[2024-06-27] MEDS: MUCINEX 600 MG PO (20:32)
[2024-06-27] MEDS: CRESTOR 20 MG PO (20:33)
[2024-06-28] VITALS (16 sets, daily range): BP systolic 118–149; BP diastolic 50–78; PULSE 85; O2SAT 93; BMI 32.1
[2024-06-28 04:16] LABS: % Basophils 0.3 % (0-2); % Eosinophils 16.7 % (0-6); % Immature Granulocytes 0.7 % (0-0.5); % Lymphocytes 17.8 % (20.5-51.1); % Neutrophils 59.5 % (42.2-75.2); Absolute Eosinophils 1.7 10^3/uL (0-0.7); Absolute Immature Granulocytes 0.1 10^3/uL (0-0.05); Absolute Lymphocytes 1.8 10^3/uL (1.2-3.4); Absolute Monocytes 0.5 10^3/uL (0.1-0.6); Hematocrit 33.2 % (39.0-52.0); Hemoglobin 11.3 g/dL (13.0-18.0); Mean Corpuscular Hgb 34.3 pg (27.0-31.0); Mean Corpuscular Volume 100.9 fL (80.0-94.0); Mean Platelet Volume 11.5 fL (7.4-10.4); Nucleated Red Blood Cells % 0 % (-); Platelet Count 46 10^3/uL (130-400); Red Blood Cell Count 3.29 10^6/uL (4.70-6.10); Red Cell Dist. Width 13.8 % (11.5-14.5); White Blood Cell Count 10.1 10^3/uL (4.8-10.8)
[2024-06-28 04:30] LABS: Blood Urea Nitrogen 12 mg/dl (9-20); Calcium 9.2 mg/dl (8.4-10.2); Carbon Dioxide 24 mmol/L (22-30); Chloride 108 mmol/L (98-107); Estimated Creatinine Clearance 24 ml/min; Glucose 107 mg/dl (70-99); Potassium 3.2 mmol/L (3.5-5.1); Sodium 145 mmol/L (135-145)
[2024-06-28] MEDS: ZOSYN 50 IV ×4 (04:52→22:16)
[2024-06-28] MEDS: 0.45%NACL 1000 IV (07:27)
[2024-06-28] MEDS: IMDUR (EXTENDED RELEASE) 30 MG PO (07:40)
[2024-06-28] MEDS: RISPERDAL M-TAB (ORALLY DISINTEGRATING) 0.25 MG PO ×2 (07:41→21:34)
[2024-06-28] MEDS: MUCINEX 600 MG PO ×2 (07:41→19:41)
[2024-06-28] MEDS: PROTONIX 40 MG PO (07:41)
[2024-06-28] MEDS: COREG 6.25 MG PO ×2 (07:41→19:40)
--- NOTE | 2024-06-28 08:03 | W.PN.NEPH.PH ---
Today's Communication / Plan
-
Replete potassium
Holding diuretic
Follow BMP
Assessment/Plan
-
Assessment
MINDI
CKD 3A, 1.44
Discitis
Pacer wire vegetation
Cholecystitis/TTube
Recent enterococcal bacteremia
Thrombocytopenia
Confusion, uncooperative
Plan
Follow BMP
Creatinine down to 2. non oliguric
replete K
Hemodynamically stable
Urinalysis notes 2+ blood with only trace proteinuria
Fractional excretion of sodium is not consistent with prerenal stimulus
Continue to withhold diuretics as patient has evolving hypernatremia and there is no evidence of volume overload,weights not recorded today
Would encourage free water intake for hypernatremia
entresto held
IV Antibiotics per infectious disease, possible PNA
-
-
Date of Service: June 28, 2024
CC / HPI / ROS
-
Chief Complaint:
Acute kidney injury
History of Present Illness:
Creatinine down to 2
Hemodynamically stable
On daptomycin re: enterococcal bacteremia
Zosyn re: PNA
Hypernatremia persistent 145
Review of Systems:
No fevers
Nonoliguric
Labs
-
Labs:
WBC 10.1 10^3/uL (4.8-10.8) 06/28/24 03:40
RBC 3.29 10^6/uL (4.70-6.10) L 06/28/24 03:40
Hgb 11.3 g/dL (13.0-18.0) L 06/28/24 03:40
Hct 33.2 % (39.0-52.0) L 06/28/24 03:40
Plt Count 46 10^3/uL (130-400) L 06/28/24 03:40
Sodium 145 mmol/L (135-145) 06/28/24 03:40
Potassium 3.2 mmol/L (3.5-5.1) L 06/28/24 03:40
Chloride 108 mmol/L (98-107) H 06/28/24 03:40
Carbon Dioxide 24 mmol/L (22-30) 06/28/24 03:40
BUN 12 mg/dl (9-20) 06/28/24 03:40
Creatinine 2.0 mg/dL (0.7-1.3) H 06/28/24 03:40
eGFR 32.10 06/28/24 03:40
Glucose 107 mg/dl (70-99) H 06/28/24 03:40
Calcium 9.2 mg/dl (8.4-10.2) 06/28/24 03:40
Gbx-W-Ojqujteolez Pept 912 pg/ml 06/24/24 21:47
Albumin 3.7 g/dl (3.5-5.0) 06/26/24 04:05
Physical Exam
-
Vital Signs:
Vital Signs
Temp Pulse Resp BP Pulse Ox
97.8 F 93 25 143/66 94
06/28/24 03:18 06/28/24 07:41 06/28/24 06:00 06/28/24 07:41 06/28/24 07:45
Cardiovascular:: Regular rate and rhythm
Respiratory:: Bilateral: Coarse
Lung Excursion:: Normal
Abdomen:: Nontender
Bowel Sounds:: Decreased
Extremity Edema:: None: Bilateral:
Tavera Catheter: No
[2024-06-28] MEDS: KLOR-CON 20 MEQ PO (08:22)
--- NOTE | 2024-06-28 09:40 | W.PN.CD ---
Today's Communication / Plan
-
FCI ATB suppression
Add back some or all of Entresto/Torsemide as condition improves
Add back ASA if plt reach over 50K
I don't think he needs a diuretic today
Impression / Plan
-
Pneumonia
Recent enterococcus bacteremia, and report of device lead vegetation
- ATBs per ID, ID plans alf (life long) suppression that we agree with
- Blood culture here 06/24: no growth to date
- no evidence of vegetation within limits of TTE here on 06/25, and not a good candidate for DAYA and/or lead extraction given age, and significant thrombocytopenia
MINDI on CKD: improving s/p IV fluids, baseline unknown, nephrology is following
- holding home Entresto and torsemide
CAD with hx CABG, stable, no angina
- ASA held due to thrombocytopenia
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
- euvolemic despite holding Entresto/torsemide
- LVEF 35-40% on echo 2022 from A[facility]
- LVEF now 25-30% with multiple recent infections (would not recommend cath, med mgmt only)
- cont Coreg
- Resume Diuretic and ARNI when renal function allows or if congestion develops
- no SGLT2i or MRA due to MINDI at this time
Thrombocytopenia, severe, heme consulted
- Likely resume ASA once plt over 50
Subjective:
No c/o CP or dyspnea, supine and comfortable.
Physical Exam
Vital Signs/Labs
Vital Signs
Temp Pulse Resp BP Pulse Ox
98.1 F 93 25 143/66 94
06/28/24 08:05 06/28/24 07:41 06/28/24 06:00 06/28/24 07:41 06/28/24 07:45
06/27/24 06/28/24 06/29/24
06:59 06:59 06:59
Actual Weight 77 kg
06/28/24 03:40
06/28/24 03:40
PT 18.4 Sec (11.4-14.6) H 06/25/24 11:08
INR 1.48 06/25/24 11:08
APTT 30.9 Sec (23.4-35.0) 06/25/24 11:08
06/24/24
21:47
Dvz-L-Wlrnibootom Pept 912
Physical Exam
Constitutional: No acute distress
EENT: Anicteric
Cardiovascular: Rhythm & rate is regular and Pedal edema is absent
Respiratory: Respiratory effort normal and Lungs clear to auscul.
GI: Distention absent
Neuro/Psych: Alert
Data Reviewed
-
Date of Service: June 28, 2024
[2024-06-28] MEDS: CUBICIN 11 MG IV (09:45)
--- NOTE | 2024-06-28 10:53 | CM ---
Addendum entered by Martha Mckeon 06/28/24 14:26:
CM attempted to call Sharif's son's (Hakeem) phone. He did not answer. CM introduced self and role and explained will be following case just for today. Left work cell number for Hakeem to call back. Awaiting return phone call.
Original Note:
Attempted to obtain IMM from patient. He is still very confused and is a 1:1.
--- NOTE | 2024-06-28 11:08 | W.PN.UPDATE ---
Update Note
Progress Note Update
Mr. Morrison was awake today and able to engage in conversation. Speech slightly soft and slow, but essentially unremarkable. Perhaps mild paranoid ideation and spoke at the end in vague terms. He has been cooperative with the nursing staff. Taking
medications, not agitated nor leaving his bed and is eating. Has generally understanding of his medical condition. No EPS evident from risperidone 0.25 mg. AM and 0.5 mg. HS.
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 His is 89 and in a [place] [facility]. He owns a house in [place], but recognizes he may need to live where his lives. Has two sons and a daughter as well as
grandchildren. One son lives near [place] and is a RUNNING INSTRUCTOR at [employer] in [employer].
Pt. denies any past treatment for depression or anxiety. Denies feeling depressed now and denies any suicidal ideation or desire to . He seems hopeful about his health improving and related how he was only briefly out of hospitals.
Will continue risperidone as ordered. Signing off. Please contact Psychiatry if follow-up needed.
--- NOTE | 2024-06-28 12:48 | W.PN.HOSP.TC ---
Today's Communication/Plan
-
Assessment / Plan
Assessment / Plan
Imaging
CXR
IMPRESSION:
Left lower lobe opacification suspicious for pneumonia. Follow-up imaging recommended to confirm complete resolution.
Head CT
IMPRESSION:
1. No acute intracranial abnormalities appreciated.
2. Mild atrophy and mild chronic small vessel change.
Physical Exam
NAD, resting comfortably in bed
Scleral anicteric
Moist mucous membranes
No JVD
CTA bilateral
Normal S1-S2 no murmurs
Soft nontender nondistended bowel sounds active
No peripheral pitting edema
Moves extremities spontaneously
AAOx3 (person, place, year), knows that akil won the election
Assessment and Plan
Acute hypoxemic respiratory secondary to pneumonia
-Recently hospitalized for Enterococcus bacteremia, on long-term IV antibiotics with daptomycin with end date 06/29
-As daptomycin causes MRSA this will be continued
-Add additional broad-spectrum antibiotic with Zosyn
-ID consulted
-Follow-up on sputum and blood cultures
-Wean O2
-Incentive spirometer
MINDI
-Per documentation baseline creat 1.4
-Not sure what baseline GFR was unclear if this is MINDI on CKD versus progressive CKD however likely the former
-Check urine studies with urine analysis urine sodium creatinine protein and urine OSM
-Monitor urinary output
-Bladder scan
-Nephrology to see
Enterococcus bacteremia from outside hospital for suspected endocarditis
-Midline pulled out
-Consult IV team to place
-Continue daptomycin
-ID consulted
-DAYA once plt greater than 50 per cardiology
-ID and Cardiology both favoring longterm suppressive therapy, I do agree with this ced if the lead cannot be extracted
Thrombocytopenia�chronic
-Can check HIV hepatitis C B12 folate
-Peripheral smear
-Hematology consulted
-Transfuse platelets for active bleeding with platelet count of less than 30,000
-Transfuse platelets without active bleeding for platelet count less than than 10,000
CAD
-S/p quadruple bypass
-Not on ASA as plt less than 50,000
-Continue HI statin
HyperNatremia
-On isotonic fluids.
-Will stop, asked nursing to follow PO intake. If low start 1/2 NS at 75cc/hr
Hpokalemia
-Repelte PRN
Delirium
-Evaled by psych, start prn risperidone
Anticipated Discharge: 24 - 48 hours
Subjective/Interval History
-
Date of Service: June 28, 2024
seen and examined. no new comaplitns. no acute overnight events
Objective Data
-
Labs:
Laboratory Results
06/28/24
03:40
WBC 10.1
Hgb 11.3 L
Hct 33.2 L
Plt Count 46 L
Sodium 145
Potassium 3.2 L
Chloride 108 H
Carbon Dioxide 24
BUN 12
Creatinine 2.0 H
Glucose 107 H
Calcium 9.2
Vital Signs:
Vital Signs
Temp Pulse Resp BP Pulse Ox
97.6 F 86 23 126/60 92
06/28/24 11:05 06/28/24 12:00 06/28/24 12:00 06/28/24 12:00 06/28/24 12:29
I&O
06/27/24 06/28/24 06/29/24
06:59 06:59 06:59
Intake Total 1060 / 1060 2320 / 2320
Output Total 630 / 630 550 / 550 150 / 150
Balance 430 / 430 1770 / 1770 -150 / -150
--- NOTE | 2024-06-28 13:15 | PTCARENOTE ---
Patient denying pain when laying in bed. Started to grimace in pain during physical therapy when he was sitting on side of bed. Notified Dr. Jacob of pain. Pain relieved when patient placed back in bed.
[2024-06-28] MEDS: TYLENOL 650 MG PO ×2 (13:26→19:58)
[2024-06-28] MEDS: RISPERDAL M-TAB (ORALLY DISINTEGRATING) 0.5 MG PO ×2 (17:33→21:35)
--- NOTE | 2024-06-28 18:02 | CM ---
Addendum entered by Martha Mckeon 06/28/24 18:43:
Hakeem shared that his preferences are [facility] (whom he has been in communication with) and [facility]. Referrals placed.
Addendum entered by Martha Mckeon 06/28/24 18:05:
CM also discussed patient's severe back pain. Hakeem is aware of this and said, 'This seems to be all apart of his 'condition' '.
Original Note:
Spoke with son who was wondering about patient's discharge planning. CM shared PT's recommendation for continuation of short term rehab. Hakeem (son) stated that if another option besides [facility] could be looked at, he would prefer that. He is
agreement with his father continuing short term rehab.
[2024-06-28] MEDS: CRESTOR 20 MG PO (21:34)
[2024-06-29] VITALS (14 sets, daily range): BP systolic 117–159; BP diastolic 61–123; PULSE 97–125; BMI 32.4
[2024-06-29] MEDS: ZOSYN 50 IV ×2 (04:45→12:08)
[2024-06-29 05:41] LABS: Hematocrit 33.6 % (39.0-52.0); Hemoglobin 11.5 g/dL (13.0-18.0); Mean Corp Hgb Conc. 34.2 g/dL (33.0-37.0); Mean Corpuscular Hgb 33.4 pg (27.0-31.0); Mean Corpuscular Volume 97.7 fL (80.0-94.0); Platelet Count 51 10^3/uL (130-400); Red Blood Cell Count 3.44 10^6/uL (4.70-6.10); Red Cell Dist. Width 13.6 % (11.5-14.5); White Blood Cell Count 9.6 10^3/uL (4.8-10.8)
[2024-06-29 05:50] LABS: Blood Urea Nitrogen 10 mg/dl (9-20); Calcium 9.5 mg/dl (8.4-10.2); Carbon Dioxide 20 mmol/L (22-30); Chloride 110 mmol/L (98-107); Estimated Creatinine Clearance 28 ml/min; Glucose 125 mg/dl (70-99); Potassium 3.2 mmol/L (3.5-5.1); Sodium 144 mmol/L (135-145); eGFR 39.02
[2024-06-29 08:04] LABS: % Basophils 0.3 % (0-2); % Eosinophils 24.7 % (0-6); % Immature Granulocytes 0.9 % (0-0.5); % Lymphocytes 17.5 % (20.5-51.1); % Monocytes 6.1 % (1.7-9.3); % Neutrophils 50.5 % (42.2-75.2); Absolute Eosinophils 2.4 10^3/uL (0-0.7); Absolute Immature Granulocytes 0.1 10^3/uL (0-0.05); Absolute Lymphocytes 1.7 10^3/uL (1.2-3.4); Absolute Monocytes 0.6 10^3/uL (0.1-0.6); Absolute Neutrophils 4.9 10^3/uL (1.4-6.5); Nucleated Red Blood Cells % 0 % (-)
--- NOTE | 2024-06-29 08:23 | W.PN.CD ---
Today's Communication / Plan
-
f/u heme recs
cont. to hold asa
euvolemic, no need for diuresis
mindi improving, likely will add GDMT tomorrow
Impression / Plan
-
Pneumonia
Recent enterococcus bacteremia, and report of device lead vegetation
- ATBs per ID, ID plans keno terminal operator (life long) suppression that we agree with
- Blood culture here 06/24: no growth to date
- no evidence of vegetation within limits of TTE here on 06/25, and not a good candidate for DAYA and/or lead extraction given age, and significant thrombocytopenia
MINDI on CKD: improving s/p IV fluids, baseline unknown, nephrology is following
- holding home Entresto and torsemide
Thrombocytopenia, severe, heme consulted
- heme consulted
CAD with hx CABG, stable, no angina
- ASA held due to thrombocytopenia
- plt >50 today; consider resuming tomorrow if Plt>50 and pending heme recs
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
- euvolemic despite holding Entresto/torsemide
- LVEF 35-40% on echo 2022 from AMS
- LVEF now 25-30% with multiple recent infections (would not recommend cath, med mgmt only)
- cont Coreg
- ARNI and diuretic pending one more day of renal improvement (down to 1.7, b/l is 1.4)
- no SGLT2i or MRA due to MINDI at this time
Subjective:
No c/o CP or dyspnea, supine and comfortable.
Physical Exam
Vital Signs/Labs
Vital Signs
Temp Pulse Resp BP Pulse Ox
36.8 C 81 28 125/85 93
06/29/24 07:03 06/29/24 06:30 06/29/24 06:00 06/29/24 06:31 06/29/24 06:31
06/28/24 06/29/2406/30/24
06:59 06:59 06:59
Actual Weight 77 kg 77.7 kg
06/29/24 05:08
06/29/24 05:08
PT 18.4 Sec (11.4-14.6) H 06/25/24 11:08
INR 1.48 06/25/24 11:08
APTT 30.9 Sec (23.4-35.0) 06/25/24 11:08
06/24/24
21:47
Shz-V-Imcqhqovhne Pept 912
Physical Exam
Constitutional: No acute distress
Cardiovascular: Rhythm & rate is regular, Pedal edema is absent, JVD pressure is normal, Systolic murmur absent and Diastolic murmur absent
Respiratory: Respiratory effort normal, Lungs clear to auscul. and Wheeze Absent
Data Reviewed
-
Date of Service: June 29, 2024
Medical Decision Making: Reviewed Test Results
EKG: Report Reviewed by me
Echo: Report Reviewed by me
X-Ray/CT/US/MRI/NUC/PET: Report Reviewed by me
Labs: Labs Ordered by me
[2024-06-29] MEDS: COREG 6.25 MG PO ×2 (08:59→19:37)
[2024-06-29] MEDS: KCL 40 MEQ PO ×2 (08:59→20:39)
[2024-06-29] MEDS: RISPERDAL M-TAB (ORALLY DISINTEGRATING) 0.25 MG PO (09:00)
[2024-06-29] MEDS: MUCINEX 600 MG PO ×2 (09:00→19:35)
[2024-06-29] MEDS: PROTONIX 40 MG PO (09:00)
[2024-06-29] MEDS: IMDUR (EXTENDED RELEASE) 30 MG PO (09:00)
[2024-06-29] MEDS: CUBICIN 11 MG IV (10:28)
--- NOTE | 2024-06-29 11:11 | W.PN.NEPH.PH ---
Today's Communication / Plan
-
follow BMP
Assessment/Plan
-
Assessment
MINDI
CKD 3A, 1.44
Discitis
Pacer wire vegetation
Cholecystitis/TTube
Recent enterococcal bacteremia
Thrombocytopenia
Confusion, uncooperative
Plan
Follow BMP
replete K 80meq
Hemodynamically stable
Would encourage free water intake for hypernatremia
entresto held
IV Antibiotics per infectious disease
off diuretics
-
-
Date of Service: June 29, 2024
CC / HPI / ROS
-
Chief Complaint:
Acute kidney injury
History of Present Illness:
Creatinine down to 1.7
Hemodynamically stable
On daptomycin re: enterococcal bacteremia
Zosyn re: PNA
Hypernatremia better at 144, off IVF
Review of Systems:
No fevers
Nonoliguric
Labs
-
Labs:
WBC 9.6 10^3/uL (4.8-10.8) 06/29/24 05:08
RBC 3.44 10^6/uL (4.70-6.10) L 06/29/24 05:08
Hgb 11.5 g/dL (13.0-18.0) L 06/29/24 05:08
Hct 33.6 % (39.0-52.0) L 06/29/24 05:08
Plt Count 51 10^3/uL (130-400) L 06/29/24 05:08
Sodium 144 mmol/L (135-145) 06/29/24 05:08
Potassium 3.2 mmol/L (3.5-5.1) L 06/29/24 05:08
Chloride 110 mmol/L (98-107) H 06/29/24 05:08
Carbon Dioxide 20 mmol/L (22-30) L 06/29/24 05:08
BUN 10 mg/dl (9-20) 06/29/24 05:08
Creatinine 1.7 mg/dL (0.7-1.3) H 06/29/24 05:08
eGFR 39.02 06/29/24 05:08
Glucose 125 mg/dl (70-99) H 06/29/24 05:08
Calcium 9.5 mg/dl (8.4-10.2) 06/29/24 05:08
Jnh-F-Gutkvzxmkzp Pept 912 pg/ml 06/24/24 21:47
Albumin 3.7 g/dl (3.5-5.0) 06/26/24 04:05
Physical Exam
-
Vital Signs:
Vital Signs
Temp Pulse Resp BP Pulse Ox
98.3 F 88 28 145/69 93
06/29/24 07:03 06/29/24 08:59 06/29/24 06:00 06/29/24 08:59 06/29/24 06:31
Cardiovascular:: Regular rate and rhythm
Respiratory:: Bilateral: Coarse
Lung Excursion:: Normal
Abdomen:: Nontender and Soft
Bowel Sounds:: Normal
Extremity Edema:: None: Bilateral:
--- NOTE | 2024-06-29 12:44 | W.PN.ID1 ---
Date of Service
Date of Service: June 29, 2024
Today's Communication
Continue antibiotics. See below�
Assessment / Plan
History of enterococcal bacteremia
Suspected Endocarditis
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
Recent cholecystitis with T-tube placement
Possible Right lower lobe PNA
Thrombocytopenia - improving, chronic
Eosinophilia
AMS, agitation
MINDI on CAD
CKD stage III
HTN
Chronic thrombocytopenia
CHF
Dyslipidemia
BPH
Lumbar spondylolisthesis
Recommendations:
06/24 blood cultures no growth to date
Thrombocytopenia slowly improving
Eosinophilia increased today. Will continue to follow; should decrease once off of daptomycin.
Transition Zosyn to oral Augmentin x4d
To complete course of daptomycin today (6 weeks). Thereafter, transition to oral indefinite amoxicillin for for chronic suppression after this given non-removable suspected lead infection. (begin after completion of Augmentin.)
Sputum culture has been ordered, but patient unable to provide a sample thus far
Chief Complaint
-: Other (endocarditis)
Subjective / Review of Systems
Review of Systems: No Fever and No Chills
Vital Signs / Physical Exam
Vital Signs
Vital Signs
Temp Pulse Resp BP Pulse Ox
97.8 F 88 28 145/69 93
06/29/24 11:40 06/29/24 08:59 06/29/24 06:00 06/29/24 08:59 06/29/24 06:31
Physical Exam
Constitutional: No Acute Distress
Cardiovascular: Regular Rate and S1/S2; Negative Murmur or Rub
Pulmonary: Clear, Symmetric, Non Labored and Other (productive cough); Negative Wheezes or Rales
Gastrointestinal: Soft, Non Tender, Non Distended and Normal Bowel Sounds
Skin: Warm and Dry; Negative Rash or Jaundice
Lines: Other (pacemaker no erythema, warmth or tenderness)
Objective Data
Lab Data
Lab Results
06/29/24 05:08
06/29/24 05:08
ESR 7 mm/hour (0-20) 06/26/24 04:05
PT 18.4 Sec (11.4-14.6) H 06/25/24 11:08
INR 1.48 06/25/24 11:08
APTT 30.9 Sec (23.4-35.0) 06/25/24 11:08
Estimated Creat Clear 28 ml/min 06/29/24 05:08
Lactic Acid 1.5 mmol/L (0.7-2.0) 06/24/24 22:47
Total Bilirubin 1.2 mg/dl (0.2-1.3) 06/26/24 04:05
AST 26 U/L (17-59) 06/26/24 04:05
ALT 20 U/L (0-50) 06/26/24 04:05
Alkaline Phosphatase 42 U/L (38-126) 06/26/24 04:05
C-Reactive Protein < 5.00 mg/L (0.0-10.00) 06/26/24 04:05
Most recent labs reviewed.
Micro Results:
06/24/24 22:47 Blood Culture - Preliminary
Blood/Venous No Growth in 4 days- Final report to follow
06/24/24 22:47 Blood Culture - Preliminary
Blood/Venous No Growth in 4 days- Final report to follow
06/25/24 01:45 MRSA Screen - Final
Nose No Methicillin Resistant Staphylococcus aureus isolated.
Imaging:
06/24/2024 CXR (2 view): Right lower lobe opacification is seen, suspicious for pneumonia. Cardiomediastinal silhouette are within the limits of normal. No pneumothorax, pleural effusion or mediastinal shift noted. A left-sided cardiac device is
seen with intact wires. Sternal wires are also noted. Please see full dictation for additional detail.
06/25/2024 CT head without contrast: No acute intracranial abnormalities noted. Mild atrophy and mild chronic small vessel changes noted. Please see full dictation for additional detail.
[2024-06-29] MEDS: HALDOL 0.5 MG IV (13:32)
--- NOTE | 2024-06-29 14:48 | W.PN.HOSP.TC ---
Addendum entered and electronically signed by Steve Lopez MD 06/29/24 15:56:
Seen and examined by me independently in collaboration with the medical sales representative Patsy.
Lab data and imaging data reviewed.
Addendum as below :
Patient is alert and oriented to self. He is confused with regards to his diagnosis under his whereabouts. Intermittently is agitated as well. no known diagnosis of dementia. Suspect delirium/TME. CW abx for bacteremia and pneumonia. On RA
without respiratory distress. CW medication for agitation management for now.
Cards input about DAYA/ Lead extraction noted - not a candidate.
raising is no failure noted-unclear if related to medications. No rash. Now that he is finishing his Daptomycin and Zosyn being switched to Augmentin -we will follow his counts; if persistent elevation despite the med changes will investigate
further.
Chronic thrombocytopenia -follow counts for now . Heme following.
MYRA RN
total time spent on today's encounter was 52 minutes which included time spent in counseling the patient/family regarding diagnosis and treatment plan as listed above, goals of care, and symptom management. Case was discussed with nursing staff,
specialists . All labs and imaging personally reviewed by me. Remainder the time spent in detailed review of previous records, lab data, imaging, and other medical provider documentation.
Original Note:
Today's Communication/Plan
-
Last day of daptomycin, transition to p.o. Augmentin from Zosyn.
Assessment / Plan
Assessment / Plan
Acute hypoxemic respiratory secondary to pneumonia
-Recently hospitalized for Enterococcus bacteremia, on long-term IV antibiotics with daptomycin with end date 06/29
-discontinue daptomycin tomorrow
-Transition Zosyn to oral Augmentin day 4
-ID consulted
-Follow-up on sputum and blood cultures
-Wean O2
-Incentive spirometer
MINDI on CKD 3a
- Resolving today 1.7
- Continue to monitor
- baseline creat 1.4
- Nephrology following
Eosinophilia
- 24.7 %
- Likely secondary to antibiotics. Should improve after d/c
- Monitor
Enterococcus bacteremia from outside hospital for suspected endocarditis
-Midline pulled out 06/[address] [facility]
-Daptomycin finishes tmrw no need to replace
-DAYA once plt greater than 50 per cardiology, although may be discontinued if pt not good candidate for lead extraction
-ID and Cardiology both favoring continuous churn buttermaker suppressive therapy
Thrombocytopenia�chronic
- Slowly uptrending
-Peripheral smear pending
-Hematology following
-Transfuse platelets for active bleeding with platelet count of less than 30,000
-Transfuse platelets without active bleeding for platelet count less than than 10,000
CAD
-S/p quadruple bypass
-Not on ASA as plt less than 50,000
-Continue HI statin
HyperNatremia
- Resolved
Hpokalemia
-Repelte PRN
Delirium
-Evaled by psych, start prn risperidone
- 0.5 haldol IV prn
- Wrist restraints if aggressive
DVT heparin
Low sodium diet
DNR
Anticipated Discharge: 24 - 48 hours
Subjective/Interval History
-
Date of Service: June 29, 2024
Objective Data
-
Labs:
Laboratory Results
06/29/24
05:08
WBC 9.6
Hgb 11.5 L
Hct 33.6 L
Plt Count 51 L
Sodium 144
Potassium 3.2 L
Chloride 110 H
Carbon Dioxide 20 L
BUN 10
Creatinine 1.7 H
Glucose 125 H
Calcium 9.5
Vital Signs:
Vital Signs
Temp Pulse Resp BP Pulse Ox
97.8 F 88 28 145/69 93
06/29/24 11:40 06/29/24 08:59 06/29/24 06:00 06/29/24 08:59 06/29/24 06:31
I&O
06/28/24 06/29/24 06/30/24
06:59 06:59 06:59
Intake Total 2320 / 2320 670 / 670
Output Total 550 / 550 750 / 750
Balance 1770 / 1770 -80 / -80
Review of Systems
-
History Source: Patient
Constitutional: Reports Fatigue
Respiratory: Reports No Symptoms
Cardiac: Reports No Symptoms
Abdomen/GI: Reports No Symptoms
Neuro: Reports No Symptoms
Physical Exam
-
General: No Apparent Distress
HEENT: Normocephalic
Respiratory: Clear to Auscultation
Cardiac: Regular Rhythm and S1/S2
GI: Soft, Nontender, Nondistended and Normal Bowel Sounds
Skin: Warm
Neuro: Awake and Alert; Negative Oriented
Psych: Agitated
--- NOTE | 2024-06-29 14:55 | PTCARENOTE ---
Rec'd pt this AM. very agitated and confused. refusing all PO intake today and PO meds. Pt becoming combative, IV haldol given with no effect, B/L wrist restraints applied as ordered. vital signs stable. Pt now downgraded to tele.
--- NOTE | 2024-06-29 14:57 | W.PN.ONC ---
Today's Communication / Plan
-
Platelets on a very slow upward trend. Continue to monitor. HIT study negative.
Impression
Impression
LLL PNA
hypotension
recent hospitalization at [facility] for management of Enterococcus Bacteremia d/t acute cholecystitis c/b discitis and infected defibrillator wire. s/p percutaneous analy tube
acute on chronic thrombocytopenia -he reports recent baseline 50,000 and chronic thrombocytopenia over the past 15 years of unknown etiology. No B12 or folate deficiency. Acute thrombocytopenia likely consumptive in setting of infection
hypofibrinogenemia
Renal insufficiency
Plan
Plan
transfuse platelets <10, prn <50 if bleeding
transfuse cryo prn bleeding if fibrinogen <150
f/u HIT panel,
monitor for bleeding
avoid NSAIDs, anticoagulation, and antiplatelet for platelet count <50,000
Abx per ID
MINDI/CKD per nephrology
Hematoloy Addendum:
Agree w/ INTERSTATE BUS DISPATCHER note and plan as outlined
Subjective/Objective
Subjective/Objective
He is actively confabulating. Examination is otherwise unchanged.
Vital Signs:
Vital Signs
Temp Pulse Resp BP Pulse Ox
97.8 F 88 28 145/69 93
06/29/24 11:40 06/29/24 08:59 06/29/24 06:00 06/29/24 08:59 06/29/24 06:31
Lab Results:
Laboratory Data
WBC 9.6 10^3/uL (4.8-10.8) 06/29/24 05:08
Hgb 11.5 g/dL (13.0-18.0) L 06/29/24 05:08
Plt Count 51 10^3/uL (130-400) L 06/29/24 05:08
PT 18.4 Sec (11.4-14.6) H 11/07/24 11:08
INR 1.48 06/25/24 11:08
APTT 30.9 Sec (23.4-35.0) 06/25/24 11:08
eGFR 39.02 06/29/24 05:08
--- NOTE | 2024-06-29 16:04 | CM ---
Patient from [facility] with Dx Acute hypoxemic respiratory secondary to pneumonia, MINDI, Enterococcus bacteremia with suspected endocarditis, Thrombocytopenia, Agitation/delirium/TME. Room air. IVF. PT/OT recommend skilled rehab. Per nurse
[place]illa; remains confused, has restraints, Medsitter. Seen by Psych - receiving risperidone.
Patient sleeping and no family in room at present.
[facility] referrals reviewed - [facility]; no accepting SNF at this time.
Spoke with [facility]; confirmed patient is off IV Abx. She will check and see if they can take the patient's [employer] Plan.
Left message with [facility], re; bed availability.
Plan follow up with [facility].
--- NOTE | 2024-06-29 18:04 | PTCARENOTE ---
Son at bedside. pt sleeping then when awake calmer. Remains confused but more clear. Son assisted with feeding for dinner as pt has refused all other meals today. Son provided DAYA report from other hospital, RN scanned to providers. All vital signs
stable.
[2024-06-29] MEDS: AUGMENTIN 500 MG/125 MG 1 TABLET PO (19:35)
[2024-06-29] MEDS: CRESTOR 20 MG PO (20:39)
[2024-06-29] MEDS: RISPERDAL M-TAB (ORALLY DISINTEGRATING) 0.5 MG PO (20:39)
[2024-06-30] VITALS (11 sets, daily range): BP systolic 101–151; BP diastolic 45–88; BMI 32.2
--- NOTE | 2024-06-30 01:06 | PTCARENOTE ---
assumed care of patient, pt is AAOx1- oriented to self only. VSS. bed alarm on and medsitter present. pt in b/l wrist restraints at start of shift. pt has been cooperative so far, restraints removed. pt did take pills without issues. full bed bath
given, pt is incontinent of bowel and bladder. v-paced on the monitor. care ongoing.
[2024-06-30] MEDS: HALDOL 0.5 MG IV (04:49)
--- NOTE | 2024-06-30 04:51 | PTCARENOTE ---
pt extremely agitated this AM, trying to hit/punch staff during AM blood work. IV haldol given per OCT, will attempt AM EKG later. EKG x2 orders entered per protocol.
[2024-06-30 05:25] LABS: Blood Urea Nitrogen 10 mg/dl (9-20); Calcium 9.7 mg/dl (8.4-10.2); Carbon Dioxide 20 mmol/L (22-30); Chloride 113 mmol/L (98-107); Estimated Creatinine Clearance 32 ml/min; Glucose 112 mg/dl (70-99); Potassium 4.1 mmol/L (3.5-5.1); Sodium 145 mmol/L (135-145); eGFR 45.34
[2024-06-30 05:27] LABS: % Basophils 0.4 % (0-2); % Eosinophils 29.8 % (0-6); % Immature Granulocytes 1.2 % (0-0.5); % Lymphocytes 17.7 % (20.5-51.1); % Monocytes 6.6 % (1.7-9.3); % Neutrophils 44.3 % (42.2-75.2); Absolute Eosinophils 3.1 10^3/uL (0-0.7); Absolute Immature Granulocytes 0.1 10^3/uL (0-0.05); Absolute Lymphocytes 1.8 10^3/uL (1.2-3.4); Absolute Monocytes 0.7 10^3/uL (0.1-0.6); Absolute Neutrophils 4.6 10^3/uL (1.4-6.5); Hematocrit 35.6 % (39.0-52.0); Hemoglobin 12.2 g/dL (13.0-18.0); Mean Corp Hgb Conc. 34.3 g/dL (33.0-37.0); Mean Corpuscular Hgb 34.1 pg (27.0-31.0); Mean Corpuscular Volume 99.4 fL (80.0-94.0); Mean Platelet Volume 11.4 fL (7.4-10.4); Nucleated Red Blood Cells % 0 % (-); Platelet Count 49 10^3/uL (130-400); Red Blood Cell Count 3.58 10^6/uL (4.70-6.10); Red Cell Dist. Width 13.6 % (11.5-14.5); White Blood Cell Count 10.4 10^3/uL (4.8-10.8)
--- NOTE | 2024-06-30 09:10 | PTCARENOTE ---
Assumed care of patient at beginning of this shift from previous RN with medsitter in use; b/l wrist restraints not in use from previous shift. On initial assessment patient would not open his eyes and kept repeating, 'leave me alone.' Was able to
do oral care and turn patient; however he would not take a sip of water or take his oral meds. Will try at a later time. Patient then was able to get his legs over the side of the bed almost in a kneeling position. He was incontinent of stool.
Assisted back to bed x4 assist; patient not bearing weight on his legs. Bathed and changed. In addition to medsitter, bed alarm had been set to 'moves to the side of the bed.' This is now changed to 'changes position.' [place] text sent to Dr Lopez to
make him aware. Dr Isaac on unit and also updated.
[2024-06-30] MEDS: COREG PO (09:50)
[2024-06-30] MEDS: RISPERDAL M-TAB (ORALLY DISINTEGRATING) 0.25 MG PO (09:51)
[2024-06-30] MEDS: AUGMENTIN 500 MG/125 MG 1 TABLET PO ×2 (09:52→20:47)
[2024-06-30] MEDS: PROTONIX 40 MG PO (09:52)
[2024-06-30] MEDS: IMDUR (EXTENDED RELEASE) 30 MG PO (09:52)
[2024-06-30] MEDS: MUCINEX 600 MG PO ×2 (09:52→20:47)
--- NOTE | 2024-06-30 09:56 | W.PN.NEPH.PH ---
Today's Communication / Plan
-
po intake
Assessment/Plan
-
Assessment
MINDI
CKD 3A, 1.44
Discitis
Pacer wire vegetation
Cholecystitis/TTube
Recent enterococcal bacteremia
Thrombocytopenia
Confusion, uncooperative
Plan
Follow BMP
Hemodynamically stable
encourage free water intake for hypernatremia-will need assistance throughout day for access to fluids
no entresto
IV Antibiotics per infectious disease
off diuretics weights stable
-
-
Date of Service: June 30, 2024
CC / HPI / ROS
-
Chief Complaint:
Acute kidney injury
History of Present Illness:
Creatinine down to 1.5
Hemodynamically stable
On daptomycin re: enterococcal bacteremia
Zosyn re: PNA
Hypernatremia better at 145
mild acidosis 20
Review of Systems:
No fevers
Nonoliguric
Labs
-
Labs:
WBC 10.4 10^3/uL (4.8-10.8) 06/30/24 04:43
RBC 3.58 10^6/uL (4.70-6.10) L 06/30/24 04:43
Hgb 12.2 g/dL (13.0-18.0) L 06/30/24 04:43
Hct 35.6 % (39.0-52.0) L 06/30/24 04:43
Plt Count 49 10^3/uL (130-400) L 06/30/24 04:43
Sodium 145 mmol/L (135-145) 06/30/24 04:43
Potassium 4.1 mmol/L (3.5-5.1) D 06/30/24 04:43
Chloride 113 mmol/L (98-107) H 06/30/24 04:43
Carbon Dioxide 20 mmol/L (22-30) L 06/30/24 04:43
BUN 10 mg/dl (9-20) 06/30/24 04:43
Creatinine 1.5 mg/dL (0.7-1.3) H 06/30/24 04:43
eGFR 45.34 06/30/24 04:43
Glucose 112 mg/dl (70-99) H 06/30/24 04:43
Calcium 9.7 mg/dl (8.4-10.2) 06/30/24 04:43
Nni-D-Kfdsuhiaati Pept 912 pg/ml 06/24/24 21:47
Albumin 3.7 g/dl (3.5-5.0) 06/26/24 04:05
Physical Exam
-
Vital Signs:
Vital Signs
Temp Pulse Resp BP Pulse Ox
97.9 F 84 25 101/51 92
06/30/24 08:00 06/30/24 09:50 06/30/24 08:00 06/30/24 09:50 06/30/24 07:58
Cardiovascular:: Regular rate and rhythm
Respiratory:: Bilateral: Coarse
Lung Excursion:: Normal
Abdomen:: Nontender and Soft
Bowel Sounds:: Normal
Extremity Edema:: None: Bilateral:
--- NOTE | 2024-06-30 12:10 | PTOTSP ---
Speech Language Pathology
Pt seen for clinical bedside swallow evaluation. Pt drowsy, but was able to participate. P.O. trials of puree, regular solids, and thin liquids provided. Slightly prolonged mastication noted, but this was functional given additional time. No
overt signs of aspiration.
Recommend:
(1) Continue regular solids/thin liquids
(2) General aspiration precautions
(3) Meds as tolerated
(4) COMM[employer]ITY [employer]ARD MEMBER to continue to follow
--- NOTE | 2024-06-30 12:28 | PTCARENOTE ---
Patient ordered now dose of ativan; confirmed with Dr Sewell, resident, that ativan is on-call for MRI. Pharmacist Breann made aware.
--- NOTE | 2024-06-30 13:09 | PN.CDI ---
CDI
- -
CDI:
Physician Documentation Request
Admit Date: 06/24/24 23:41
Dear Doctor,
Please review the following and provide your response in the progress notes.
Clinical Indicators:
- RN skin assessments indicate Stage 2 right buttock pressure injury, POA
Physician documentation of the type and location of wounds is required for compliant documentation. Based on the above clinical findings and your assessment, please provide the following in your progress note:
1. Location of the ulcer/wound, including laterality.
2. Type (etiology) of ulcer/wound:
- Diabetic ulcer
- Arterial (ischemic) ulcer
- Traumatic wound
- Venous stasis ulcer
- Pressure (decubitus) ulcer
- Non-healing surgical wound
- Other
- Unable to determine
Use of terms such as suspected, likely, concern for, or probable (associated with a specific diagnosis that is being evaluated, monitored, or treated as if it exists) are acceptable and can be coded in the inpatient setting, when documented at the
time of discharge.
Thank you,
Vivian Mcconnell RN
CDI Specialist
Please use your independent medical judgment in providing your response.
*Source: National Pressure Ulcer Advisory Panel (NPUAP)
--- NOTE | 2024-06-30 13:11 | W.PN.HOSP.TC ---
Addendum entered and electronically signed by Steve Lopez MD 06/30/24 15:37:
Seen and examined by me independently in collaboration with the medical massage therapist Patsy.
Lab data and imaging data reviewed.
Addendum as below :
Pt remains confused .No agitation during my visit. According to son this is new cognitive issue. No hx of dementia. suspect TME . Check MRI brain without contrast to rule out CVA.
From infection standpoint - he is afebrile and has normal WBC. No hypoxia , and HD stable. Finished his daptomycin for recent bacteremia and currently on suppressive Augmentin. Also switched from Zosyn from pneumonia standpoint to Augmentin.
Patient has peripheral eosinophilia-cannot rule out secondary to drug-related that is daptomycin related eosinophilia and hard to exclude if this is a eosinophilic pneumonia from daptomycin. It is reported as a rare side effect. No symptoms
suggestive of hypersensitivity. No skin rash. No tongue swelling. Now that he is off of daptomycin follow is no failure.
Improving renal function to his baseline.
Cardiology following- holding on GDMT meds for now. Resume when ok from cardiology standpoint. Wt stable.
Original Note:
Today's Communication/Plan
-
Oral antibiotics, MRI pending, Monitor eosinophils
Assessment / Plan
Assessment / Plan
Acute hypoxemic respiratory secondary to pneumonia
-Recently hospitalized for Enterococcus bacteremia, on long-term IV antibiotics with daptomycin with end date 06/29
-discontinue daptomycin today
-Transition Zosyn -> Augmentin day 2
-ID consulted
-Cultures (-)
-Repeat chest x-ray. If nonbacterial in nature (eosinophilic pneumonia?) Possible resolution after discontinuation of antibiotic
-Incentive spirometer
MINDI on CKD 3a
- Resolving today 1.5
- Continue to monitor
- baseline creat 1.4
- Nephrology following
Eosinophilia
- 24.7 % -> 29.8
- Likely secondary to antibiotics.
- Daptomycin known for eosinophilic pneumonia ?
- Repeat chest x-ray
- Daptomycin last day 06/29, monitor eosinophil count for improvement after discontinuing Dapto
Toxic metabolic encephalopathy
- New onset according to son starting 06/24 prior to hospitalization. No baseline dementia or agitation
- Drug-induced?
- Evaled by psych, start prn risperidone
- 0.5 haldol IV prn
- Wrist restraints if aggressive
- MRI pending
Enterococcus bacteremia from outside hospital for suspected endocarditis
-Midline pulled out 06/24 at [facility]
-Daptomycin finishes tmrw no need to replace
-05/25/2024 DAYA positive in hospital 0.6 x 1.1 cm area of heterogeneous caking of none mobile mass attached to the ventricular pacemaker lead chest. To the tricuspid valve orifice. Etiologies include thrombus or vegetation
- pt not good candidate for lead extraction. DAYA records obtained from [place]. No repeat DAYA at this time.
-ID and Cardiology both favoring fci suppressive therapy
Thrombocytopenia�chronic
- 51 -> 49
-Peripheral smear pending
-Hematology following
-Transfuse platelets for active bleeding with platelet count of less than 30,000
-Transfuse platelets without active bleeding for platelet count less than than 10,000
-Holding aspirin
-Compression device for DVT prophylaxis
HFrEF
� Currently not in exacerbation
� EF 25 to 30% echo 06/25/2024
� Notable decrease from prior DAYA on 05/25/2024 LVEF 50 to 55%
- restart Entresto and torsemide after MINDI resolves
Stage 2 right buttock pressure injury
- Wound care evaluated
CAD
-S/p quadruple bypass
-Not on ASA as plt less than 50,000
-Continue HI statin
HyperNatremia
- Resolved
Hpokalemia
-Repelte PRN
DVT heparin
Low sodium diet
DNR
Anticipated Discharge: > 48 hours
Subjective/Interval History
-
Date of Service: June 30, 2024
Objective Data
-
Labs:
Laboratory Results
06/30/24
04:43
WBC 10.4
Hgb 12.2 L
Hct 35.6 L
Plt Count 49 L
Sodium 145
Potassium 4.1 D
Chloride 113 H
Carbon Dioxide 20 L
BUN 10
Creatinine 1.5 H
Glucose 112 H
Calcium 9.7
Vital Signs:
Vital Signs
Temp Pulse Resp BP Pulse Ox
98.5 F 84 25 101/51 92
06/30/24 11:30 06/30/24 09:50 06/30/24 08:00 06/30/24 09:50 06/30/24 07:58
I&O
06/29/24 06/30/24 07/01/24
06:59 06:59 06:59
Intake Total 670 / 670
Output Total 750 / 750
Balance -80 / -80
Review of Systems
-
History Source: Patient
Constitutional: Reports Fatigue
Respiratory: Reports No Symptoms
Cardiac: Reports No Symptoms
Abdomen/GI: Reports No Symptoms
Neuro: Reports No Symptoms
Physical Exam
-
Respiratory: Crackles
Cardiac: Regular Rhythm and S1/S2
GI: Soft, Nontender and Normal Bowel Sounds
Musculoskeletal: No Edema
Skin: Warm
Neuro: Awake and Alert; Negative Oriented
--- NOTE | 2024-06-30 13:52 | W.PN.ID1 ---
Date of Service
Date of Service: June 30, 2024
Today's Communication
Continue current course of Augmentin. Trend eosinophil count.
Assessment / Plan
History of enterococcal bacteremia
Suspected Endocarditis
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
Recent cholecystitis with T-tube placement
Possible Right lower lobe PNA
Thrombocytopenia - improving, chronic
Eosinophilia
AMS, agitation
MINDI on CKD stage III
- improved
HTN
Chronic thrombocytopenia
CHF
Dyslipidemia
BPH
Lumbar spondylolisthesis
Recommendations:
S/p 6 week course of daptomycin.
Eosinophilia increased today. Will continue to follow; should decrease once off of daptomycin. May also be secondary to Zosyn, which has now been stopped.
Continue with Augmentin x 3d
Following course of Augmentin, patient will be placed on indefinite course of amoxicillin for chronic suppression of suspected lead infection, which at this time is not removable.
Daughter updated at the bedside.
����������������������������������������������������������
Chief Complaint
-: Other (endocarditis)
Subjective / Review of Systems
Review of Systems: No Fever and No Chills
Vital Signs / Physical Exam
Vital Signs
Vital Signs
Temp Pulse Resp BP Pulse Ox
98.5 F 84 25 101/51 92
06/30/24 11:30 06/30/24 09:50 06/30/24 08:00 06/30/24 09:50 06/30/24 07:58
Physical Exam
Constitutional: No Acute Distress
Cardiovascular: Regular Rate and S1/S2; Negative Murmur or Rub
Pulmonary: Clear, Symmetric, Non Labored and Other (productive cough); Negative Wheezes or Rales
Gastrointestinal: Soft, Non Tender, Non Distended and Normal Bowel Sounds
Skin: Warm and Dry; Negative Rash or Jaundice
Neurological: Awake and Alert
Lines: Other (pacemaker no erythema, warmth or tenderness)
Objective Data
Lab Data
Lab Results
06/30/24 04:43
06/30/24 04:43
ESR 7 mm/hour (0-20) 06/26/24 04:05
PT 18.4 Sec (11.4-14.6) H 06/25/24 11:08
INR 1.48 06/25/24 11:08
APTT 30.9 Sec (23.4-35.0) 06/25/24 11:08
Estimated Creat Clear 32 ml/min 06/30/24 04:43
Lactic Acid 1.5 mmol/L (0.7-2.0) 06/24/24 22:47
Total Bilirubin 1.2 mg/dl (0.2-1.3) 06/26/24 04:05
AST 26 U/L (17-59) 06/26/24 04:05
ALT 20 U/L (0-50) 06/26/24 04:05
Alkaline Phosphatase 42 U/L (38-126) 06/26/24 04:05
C-Reactive Protein < 5.00 mg/L (0.0-10.00) 06/26/24 04:05
Most recent labs reviewed.
Micro Results:
06/24/24 22:47 Blood Culture - Final
Blood/Venous No Growth - Final Report
06/24/24 22:47 Blood Culture - Final
Blood/Venous No Growth - Final Report
06/25/24 01:45 MRSA Screen - Final
Nose No Methicillin Resistant Staphylococcus aureus isolated.
Imaging:
06/24/2024 CXR (2 view): Right lower lobe opacification is seen, suspicious for pneumonia. Cardiomediastinal silhouette are within the limits of normal. No pneumothorax, pleural effusion or mediastinal shift noted. A left-sided cardiac device is
seen with intact wires. Sternal wires are also noted. Please see full dictation for additional detail.
06/25/2024 CT head without contrast: No acute intracranial abnormalities noted. Mild atrophy and mild chronic small vessel changes noted. Please see full dictation for additional detail.
--- NOTE | 2024-06-30 14:17 | W.PN.CD ---
Today's Communication / Plan
-
euvolemic; consider holding Entresto for now
Impression / Plan
-
Pneumonia
Recent enterococcus bacteremia, and report of device lead vegetation
- ATBs per ID, ID plans terminal carman (life long) suppression that we agree with
- Blood culture here 06/24: no growth to date
- no evidence of vegetation within limits of TTE here on 06/25, and not a good candidate for DAYA and/or lead extraction given age, and significant thrombocytopenia
MINDI on CKD: improving s/p IV fluids, baseline unknown, nephrology is following
- examines euvolemic, no diuresis in setting of euvolemia and resolving MINDI
- cont. to hold home Entresto for now per nephrology recommendations
Thrombocytopenia, severe, heme consulted
- heme consulted
CAD with hx CABG, stable, no angina
- ASA held due to thrombocytopenia
- plt stable at around 50; consider resuming if Plt>50 consistently
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
- euvolemic despite holding Entresto/torsemide
- LVEF 35-40% on echo 2022 from [facility]
- LVEF now 25-30% with multiple recent infections (would not recommend cath, med mgmt only)
- cont Coreg
- ARNI and diuretic pending renal improvement
- no SGLT2i or MRA due to MINDI at this time
Subjective:
No c/o CP or dyspnea, supine and comfortable.
Physical Exam
Vital Signs/Labs
Vital Signs
Temp Pulse Resp BP Pulse Ox
36.9 C 84 25 101/51 92
06/30/24 11:30 06/30/24 09:50 06/30/24 08:00 06/30/24 09:50 06/30/24 07:58
06/29/24 06/30/24 07/01/24
06:59 06:59 06:59
Actual Weight 77.7 kg 77.281 kg
06/30/24 04:43
06/30/24 04:43
PT 18.4 Sec (11.4-14.6) H 06/25/24 11:08
INR 1.48 06/25/24 11:08
APTT 30.9 Sec (23.4-35.0) 06/25/24 11:08
06/24/24
21:47
Ucd-J-Jcmxfwqhxae Pept 912
Physical Exam
Constitutional: Comfortable
Cardiovascular: Rhythm & rate is regular, Pedal edema is absent, JVD pressure is normal, Systolic murmur absent and Diastolic murmur absent
Respiratory: Respiratory effort normal, Lungs clear to auscul. and Wheeze Absent
Neuro/Psych: Alert
Data Reviewed
-
Date of Service: June 30, 2024
Medical Decision Making: Reviewed Test Results
Labs: Labs Reviewed by me
--- NOTE | 2024-06-30 14:40 | PTCARENOTE ---
Received pt from IMU via stretcher. Pt pulled over to bed with assist x2. AAOx 1-2. Forgetful. Flat. No complaints of pain. Medsitter in place. Bed alarm plugged in. Assessed, unable to orient to room. technical advisor placed. Pt unable to
verbalize understanding of call way. Call way within close reach. Will continue to monitor.
--- NOTE | 2024-06-30 14:45 | W.PN.ONC2 ---
Today's Communication / Plan
-
daily CBC
Impression
Impression
LLL PNA
hypotension
recent hospitalization at for management of Enterococcus Bacteremia d/t acute cholecystitis c/b discitis and infected defibrillator wire. s/p percutaneous analy tube
acute on chronic thrombocytopenia likely consumptive in setting of infection, HIT neg-he reports recent baseline 50,000 and chronic thrombocytopenia over the past 15 years of unknown etiology. No B12 or folate deficiency.
hypofibrinogenemia
Renal insufficiency
HFrEF
Plan
Plan
transfuse platelets <10, prn <50 if bleeding
transfuse cryo prn bleeding if fibrinogen <150
monitor for bleeding
Abx per ID
MINDI/CKD per nephrology
CAD/CHF per cardiology
Subjective/Objective
Subjective
no new complaints
Vital Signs:
Vital Signs
Temp Pulse Resp BP Pulse Ox
98.5 F 84 25 101/51 92
06/30/24 11:30 06/30/24 09:50 06/30/24 08:00 06/30/24 09:50 06/30/24 07:58
Lab Results:
Laboratory Data
WBC 10.4 10^3/uL (4.8-10.8) 06/30/24 04:43
Hgb 12.2 g/dL (13.0-18.0) L 06/30/24 04:43
Plt Count 49 10^3/uL (130-400) L 06/30/24 04:43
PT 18.4 Sec (11.4-14.6) H 06/25/24 11:08
INR 1.48 06/25/24 11:08
APTT 30.9 Sec (23.4-35.0) 06/25/24 11:08
eGFR 45.34 06/30/24 04:43
Physical Exam
Gen no distress
HEENT: Moist Mucous Membranes; Negative Jaundice
Cardiology: S1 and S2
Pulmonary: Rhonchi
GI: Soft and Other (perc analy tube)
Extremities: Pulses Present; Negative Edema
Neurology: Non Focal
Skin: Warm
Psych: Calm
--- NOTE | 2024-06-30 14:57 | PTCARENOTE ---
Patient transferred to [facility] with belongings; report given to Marya REMY. Patient's [id number] was here to visit and updated on transfer/new room number.
--- NOTE | 2024-06-30 17:02 | CM ---
Patient from [facility]. Room air. Receiving IVF, IV Ativan x2, risperidone. ST Swallow Eval/PO trials today. PT/OT recommend skilled rehab. PT held today due to agitation. Per nursing, remains confused, Medsitter.
SNF referrals reviewed. [facility] expressed interest.
Plan follow up with [facility] when mentation/agitation is improved and closer to d/c.
[2024-06-30] MEDS: RISPERDAL M-TAB (ORALLY DISINTEGRATING) 0.5 MG PO (20:48)
[2024-06-30] MEDS: CRESTOR 20 MG PO (20:48)
[2024-06-30] MEDS: COREG 6.25 MG PO (20:48)
[2024-07-01] VITALS (8 sets, daily range): BP systolic 124–152; BP diastolic 55–81; PULSE 83; O2SAT 93; BMI 31.4
[2024-07-01 06:07] LABS: Hematocrit 31.4 % (39.0-52.0); Hemoglobin 10.8 g/dL (13.0-18.0); Mean Corp Hgb Conc. 34.4 g/dL (33.0-37.0); Mean Corpuscular Hgb 34.4 pg (27.0-31.0); Mean Platelet Volume 11.9 fL (7.4-10.4); Platelet Count 48 10^3/uL (130-400); Red Blood Cell Count 3.14 10^6/uL (4.70-6.10); Red Cell Dist. Width 13.8 % (11.5-14.5); White Blood Cell Count 7.7 10^3/uL (4.8-10.8)
[2024-07-01 06:15] LABS: ALT (SGPT) 20 U/L (0-50); AST (SGOT) 29 U/L (17-59); Albumin 3.5 g/dl (3.5-5.0); Alkaline Phosphatase 36 U/L (38-126); Blood Urea Nitrogen 10 mg/dl (9-20); Calcium 9.6 mg/dl (8.4-10.2); Carbon Dioxide 23 mmol/L (22-30); Chloride 109 mmol/L (98-107); Estimated Creatinine Clearance 33 ml/min; Glucose 113 mg/dl (70-99); Potassium 3.3 mmol/L (3.5-5.1); Sodium 145 mmol/L (135-145); Total Bilirubin 0.9 mg/dl (0.2-1.3); Total Protein 5.3 g/dl (6.3-8.2); eGFR 48.95
[2024-07-01] MEDS: MUCINEX 600 MG PO ×2 (08:06→20:25)
[2024-07-01] MEDS: IMDUR (EXTENDED RELEASE) 30 MG PO (08:06)
[2024-07-01] MEDS: COREG 6.25 MG PO ×2 (08:06→20:25)
[2024-07-01] MEDS: RISPERDAL M-TAB (ORALLY DISINTEGRATING) 0.25 MG PO (08:07)
[2024-07-01] MEDS: AUGMENTIN 500 MG/125 MG 1 TABLET PO ×2 (08:07→20:25)
[2024-07-01] MEDS: PROTONIX 40 MG PO (08:07)
[2024-07-01 08:21] LABS: Absolute Neutrophils -Man Diff 3.5 10^3/uL (1.4-6.5); Band Neutrophils 0 % (0-3); Eosinophils 26 % (0-6); Lymphocytes 15 % (20-51); Monocytes 12 % (2-9); Segmented Neutrophils 46 % (42-75)
[2024-07-01 08:23] LABS: Normal RBC Morphology Yes; Platelets Checked Yes; Total Cells Counted 100
--- NOTE | 2024-07-01 09:18 | W.PN.HOSP.TC ---
Addendum entered and electronically signed by Steve Lopez MD 07/01/24 15:08:
Seen and examined by me independently in collaboration with the medical laboratory technologist Patsy.
Lab data and imaging data reviewed.
Addendum as below :
Improved clinical picture from infection standpoint. Continue with oral antibiotics per ID.
Improving eosinophils off of daptomycin and Zosyn.
Cognitive function but MRI of the head shows left frontal lobe tiny lacunar infarct. Restart ASA now that have improved and stable.
Consult Neuro.
Total time spent on today's encounter was 52 minutes which included time spent in counseling the patient regarding diagnosis and treatment plan as listed above, goals of care, and symptom management. Case was discussed with nursing staff,
specialists . All labs and imaging personally reviewed by me. Remainder the time spent in detailed review of previous records, lab data, imaging, and other medical provider documentation.
Original Note:
Today's Communication/Plan
-
Continue PO antibiotics, MRI pending, monitor eosinophil count
Assessment / Plan
Assessment / Plan
Acute hypoxemic respiratory secondary to pneumonia
-Recently hospitalized for Enterococcus bacteremia, on long-term IV antibiotics with daptomycin with end date 06/29
-daptomycin discontinued on 06/29
-Transition Zosyn -> Augmentin day 3/5
-ID following
-Cultures (-)
-Repeat chest x-ray pending. If nonbacterial in nature (eosinophilic pneumonia?) Possible resolution after discontinuation of antibiotic
-Incentive spirometer
MINDI on CKD 3a
- Resolved. Back at baseline 1.4.
- Continue to monitor
- baseline creat 1.4
- Nephrology following
Eosinophilia
- 29.8 -> 26%
- Likely secondary to antibiotics.
- Daptomycin known for eosinophilic pneumonia ?
- Repeat chest x-ray no significant improvement from prior
- Daptomycin last day 06/29, monitor eosinophil count for improvement after discontinuing Dapto
- Downtrending
Toxic metabolic encephalopathy
- New onset according to son starting 06/24 prior to hospitalization. No baseline dementia or agitation
- Drug-induced?
- Evaled by psych, start prn risperidone
- 0.5 haldol IV prn
- Wrist restraints if aggressive
- MRI pending
- Improvement today. AAOx3
Enterococcus bacteremia from outside hospital for suspected endocarditis
-Midline pulled out 06/24 at [facility]
-Daptomycin finishes tmrw no need to replace
-05/25/2024 DAYA positive in hospital 0.6 x 1.1 cm area of heterogeneous caking of none mobile mass attached to the ventricular pacemaker lead chest. To the tricuspid valve orifice. Etiologies include thrombus or vegetation
- pt not good candidate for lead extraction. DAYA records obtained from [place]. No repeat DAYA at this time.
-ID and Cardiology both favoring nurse assessor antibiotic suppressive therapy
- Amoxicillin per ID
Thrombocytopenia�chronic
- 51 -> 49 -> 48
-Peripheral smear pending
-Hematology following
-Transfuse platelets for active bleeding with platelet count of less than 30,000
-Transfuse platelets without active bleeding for platelet count less than than 10,000
-Holding aspirin
-Compression device for DVT prophylaxis
HFrEF
� Currently not in exacerbation
� EF 25 to 30% echo 06/25/2024
� Notable decrease from prior DAYA on 05/25/2024 LVEF 50 to 55%
- Continue to hold Entresto and torsemide as MINDI per cards
Stage 2 right buttock pressure injury
- Wound care evaluated
CAD
-S/p quadruple bypass
-Not on ASA as plt less than 50,000
-Continue HI statin
HyperNatremia
- Resolved
Hypokalemia
-Replete PRN
DVT heparin
Low sodium diet
DNR
Anticipated Discharge: > 48 hours
Subjective/Interval History
-
Date of Service: July 01, 2024
Objective Data
-
Labs:
Laboratory Results
07/01/24
05:14
WBC 7.7
Hgb 10.8 L
Hct 31.4 L
Plt Count 48 L
Sodium 145
Potassium 3.3 L
Chloride 109 H
Carbon Dioxide 23
BUN 10
Creatinine 1.4 H
Glucose 113 H
Calcium 9.6
Total Bilirubin 0.9
AST 29
ALT 20
Alkaline Phosphatase 36 L
Vital Signs:
Vital Signs
Temp Pulse Resp BP Pulse Ox
98.0 F 94 16 140/68 94
07/01/24 07:30 07/01/24 07:30 07/01/24 07:30 07/01/24 07:30 07/01/24 07:30
I&O
06/30/24 07/01/24 07/02/24
06:59 06:59 06:59
Intake Total 120 / 120
Output Total 210 / 210
Balance -90 / -90
Review of Systems
-
History Source: Patient
Constitutional: Reports Fatigue
EENT: Reports No Symptoms Reported
Respiratory: Reports No Symptoms
Cardiac: Reports No Symptoms
Abdomen/GI: Reports No Symptoms
Neuro: Reports No Symptoms
Physical Exam
-
General: Comfortable
Respiratory: Clear to Auscultation
Cardiac: Regular Rhythm and S1/S2
GI: Soft, Nontender, Nondistended and Normal Bowel Sounds
Skin: Warm
Neuro: AO x 3
Psych: Calm
[2024-07-01] MEDS: KCL 160 MEQ IV (10:08)
--- NOTE | 2024-07-01 10:44 | W.PN.NEPH.PH ---
Today's Communication / Plan
-
Encourage free water intake
Kidney function at baseline
Holding diuretics as weight still down
Assessment/Plan
-
Assessment
MINDI
CKD 3A, 1.44
Discitis
Pacer wire vegetation
Cholecystitis/TTube
Recent enterococcal bacteremia
Thrombocytopenia
Confusion, uncooperative
Plan
Follow BMP
Hemodynamically stable
encourage free water intake for hypernatremia-will need assistance throughout day for access to fluids
no entresto
IV Antibiotics per infectious disease
off diuretics weights stable
Creatinine stable at baseline 1.4
-
-
Date of Service: July 01, 2024
CC / HPI / ROS
-
Chief Complaint:
Acute kidney injury
History of Present Illness:
Creatinine down to 1.4
Hemodynamically stable
On daptomycin re: enterococcal bacteremia
Zosyn re: PNA
Hypernatremia at 145
mild acidosis 23
Review of Systems:
No fevers
Nonoliguric
Weights down
Labs
-
Labs:
WBC 7.7 10^3/uL (4.8-10.8) 07/01/24 05:14
RBC 3.14 10^6/uL (4.70-6.10) L 07/01/24 05:14
Hgb 10.8 g/dL (13.0-18.0) L 07/01/24 05:14
Hct 31.4 % (39.0-52.0) L 07/01/24 05:14
Plt Count 48 10^3/uL (130-400) L 07/01/24 05:14
Sodium 145 mmol/L (135-145) 07/01/24 05:14
Potassium 3.3 mmol/L (3.5-5.1) L 07/01/24 05:14
Chloride 109 mmol/L (98-107) H 07/01/24 05:14
Carbon Dioxide 23 mmol/L (22-30) 07/01/24 05:14
BUN 10 mg/dl (9-20) 07/01/24 05:14
Creatinine 1.4 mg/dL (0.7-1.3) H 07/01/24 05:14
eGFR 48.95 07/01/24 05:14
Glucose 113 mg/dl (70-99) H 07/01/24 05:14
Calcium 9.6 mg/dl (8.4-10.2) 07/01/24 05:14
Mff-G-Ygwbrjnbkwj Pept 912 pg/ml 06/24/24 21:47
Albumin 3.5 g/dl (3.5-5.0) 07/01/24 05:14
Physical Exam
-
Vital Signs:
Vital Signs
Temp Pulse Resp BP Pulse Ox
98.0 F 94 16 140/68 94
07/01/24 07:30 07/01/24 07:30 07/01/24 07:30 07/01/24 07:30 07/01/24 07:30
Cardiovascular:: Regular rate and rhythm
Respiratory:: Bilateral: Coarse
Lung Excursion:: Normal
Abdomen:: Nontender and Soft
Bowel Sounds:: Normal
Extremity Edema:: None: Bilateral:
--- NOTE | 2024-07-01 10:53 | W.PN.CD ---
Today's Communication / Plan
-
- Euvolemic on exam; no diuresis in setting of euvolemia and resolving MINDI.
- Would not resume Entresto.
- Cardiology will remain available on an as-needed basis; conservative management overall.
Impression / Plan
-
Pneumonia
Recent enterococcus bacteremia, and report of device lead vegetation
- ATBs per ID, ID plans skilled nursing (life long) suppression that we agree with
- Blood culture here 06/24: no growth to date
- no evidence of vegetation within limits of TTE here on 06/25, and not a good candidate for DAYA and/or lead extraction given age, and significant thrombocytopenia
MINDI on CKD: improving s/p IV fluids, baseline unknown, nephrology is following
- Euvolemic on exam; no diuresis in setting of euvolemia and resolving MINDI.
- Would not resume Entresto.
Thrombocytopenia, severe, heme consulted
- heme consulted
CAD with hx CABG, stable, no angina
- ASA held due to thrombocytopenia
- plt stable at around 50; consider resuming if Plt>50 consistently
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
- euvolemic despite holding Entresto/torsemide
- LVEF 35-40% on echo 2022 from AMS
- LVEF now 25-30% with multiple recent infections (would not recommend cath, med mgmt only); maintain conservative management.
- Continue Coreg
- Further GDMT limited by renal dysfunction.
- no SGLT2i or MRA due to MINDI at this time
Hypertension:
-Continue Coreg and isosorbide mononitrate ER.
Subjective:
No major events overnight.
Physical Exam
Vital Signs/Labs
Vital Signs
Temp Pulse Resp BP Pulse Ox
98.0 F 94 16 140/68 94
07/01/24 07:30 07/01/24 07:30 07/01/24 07:30 07/01/24 07:30 07/01/24 07:30
06/30/24 07/01/24 07/02/24
06:59 06:59 06:59
Actual Weight 77.281 kg 75.41 kg
07/01/24 05:14
07/01/24 05:14
PT 18.4 Sec (11.4-14.6) H 06/25/24 11:08
INR 1.48 06/25/24 11:08
APTT 30.9 Sec (23.4-35.0) 06/25/24 11:08
06/24/24
21:47
Vrg-K-Eqmcvwjnmkw Pept 912
Physical Exam
Constitutional: No acute distress and Comfortable
EENT: Anicteric
Cardiovascular: Rhythm & rate is regular, Pedal edema is absent, Systolic murmur absent and S1S2 is normal
Respiratory: Respiratory effort normal and Lungs clear to auscul.
GI: Soft
Neuro/Psych: Alert
Other: Skin (Warm, dry)
Data Reviewed
-
Date of Service: July 01, 2024
EKG: Tracing Personally Visualized and interpreted (Sinus rhythm with atrial sensed V pacing)
Labs: Labs Reviewed by me
--- NOTE | 2024-07-01 11:31 | W.PN.ID1 ---
Date of Service
Date of Service: July 01, 2024
Today's Communication
Continue with current course of Augmentin.
Assessment / Plan
History of enterococcal bacteremia
Suspected Endocarditis
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
Recent cholecystitis with T-tube placement
Possible Right lower lobe PNA
Thrombocytopenia - improving, chronic
Eosinophilia
AMS, agitation
MINDI on CKD stage III
- improved
HTN
Chronic thrombocytopenia
CHF
Dyslipidemia
BPH
Lumbar spondylolisthesis
Recommendations:
S/P 6 week course of daptomycin.
Eosinophilia mildly improved today. Will continue to follow; should decrease once off of daptomycin. May also have been secondary to Zosyn, which has now been stopped.
Continue with Augmentin x 2 additional days
Following course of Augmentin, patient will be placed on indefinite course of amoxicillin for chronic suppression of suspected lead infection, which at this time is not removable.
����������������������������������������������������������
Chief Complaint
-: Other (endocarditis)
Subjective / Review of Systems
Review of Systems: No Fever, No Chills, Cough (Minimal) and No Chest Pain
Vital Signs / Physical Exam
Vital Signs
Vital Signs
Temp Pulse Resp BP Pulse Ox
98.2 F 88 18 124/55 95
07/01/24 11:16 07/01/24 11:16 07/01/24 11:16 07/01/24 11:16 07/01/24 11:16
Physical Exam
Constitutional: No Acute Distress, Comfortable, Chronically Ill and Non-toxic
Eyes: Sclera Anicteric
Cardiovascular: Regular Rate and S1/S2; Negative Murmur or Rub
Pulmonary: Clear, Symmetric and Non Labored; Negative Wheezes or Rales
Gastrointestinal: Soft, Non Tender, Non Distended and Normal Bowel Sounds
Skin: Warm and Dry; Negative Rash or Jaundice
Neurological: Awake and Alert
Lines: Other (pacemaker no erythema, warmth or tenderness)
Objective Data
Lab Data
Lab Results
07/01/24 05:14
07/01/24 05:14
ESR 7 mm/hour (0-20) 06/26/24 04:05
PT 18.4 Sec (11.4-14.6) H 06/25/24 11:08
INR 1.48 06/25/24 11:08
APTT 30.9 Sec (23.4-35.0) 06/25/24 11:08
Estimated Creat Clear 33 ml/min 07/01/24 05:14
Lactic Acid 1.5 mmol/L (0.7-2.0) 06/24/24 22:47
Total Bilirubin 0.9 mg/dl (0.2-1.3) 07/01/24 05:14
AST 29 U/L (17-59) 07/01/24 05:14
ALT 20 U/L (0-50) 07/01/24 05:14
Alkaline Phosphatase 36 U/L (38-126) L 07/01/24 05:14
C-Reactive Protein < 5.00 mg/L (0.0-10.00) 06/26/24 04:05
Most recent labs reviewed.
Chest X-Ray: Image Reviewed and Report Reviewed
Micro Results:
06/24/24 22:47 Blood Culture - Final
Blood/Venous No Growth - Final Report
06/24/24 22:47 Blood Culture - Final
Blood/Venous No Growth - Final Report
06/25/24 01:45 MRSA Screen - Final
Nose No Methicillin Resistant Staphylococcus aureus isolated.
Imaging:
07/01/2024 CXR (2 view): There is interstitial opacification with patchy airspace opacities most pronounced in the left lower lobe which may represent multifocal pneumonia or edema/atelectasis.
06/24/2024 CXR (2 view): Right lower lobe opacification is seen, suspicious for pneumonia. Cardiomediastinal silhouette are within the limits of normal. No pneumothorax, pleural effusion or mediastinal shift noted. A left-sided cardiac device is
seen with intact wires. Sternal wires are also noted. Please see full dictation for additional detail.
06/25/2024 CT head without contrast: No acute intracranial abnormalities noted. Mild atrophy and mild chronic small vessel changes noted. Please see full dictation for additional detail.
--- NOTE | 2024-07-01 11:45 | WOUNDNOTE ---
[facility] RN note: Patient visited along with high school academic coach Khadra and patient's nurse Lorie (Anselmo) during pressure injury prevention rounds. Patient sitting in chair. Patient stood with assist of 1. Coccyx blanchable mild red and intact. Skin on heels
intact. Air chair cushion given. Po intake documented from 25-100%. He can help with turning as per nursing. He is on a turning schedule. Patient instructed pressure injury prevention measures including heel elevation in bed, importance of
nutrition and to take air chair cushion when discharged. Patient verbalized understanding.
[2024-07-01] MEDS: NSS (PRESERVATIVE FREE) 0.25 ML IV (13:11)
[2024-07-01] MEDS: ATIVAN 0.5 MG IV (13:12)
--- NOTE | 2024-07-01 15:27 | CON.NEURO ---
Neuro Assessment/Plan
Assessment
Abrupt onset of encephalopathy present at least since June 24, 2024
Show documentation for this hospitalization was that the patient had a history of dementia although denied by the patient's family, by report
Differential diagnosis for the patient's current encephalopathy includes toxic metabolic encephalopathy, sleep deprivation encephalopathy, delirium with underlying dementia
Presence of the single pixel change in the left centrum semiovale demonstrated by MRI of brain is minimally suggestive of subacute stroke
Plan
Continue aspirin as planned
Provide thiamine in case of deficiency
Attempted minimize sedation when possible
Will follow
Consultation
Order
Date of Consultation: 07/01/24
Requesting Provider: Hospitalist
Reason for Consult: Encephalopathy
Subjective/Objective
Subjective Data
Date of Service: July 01, 2024
Patient presented to this hospital's emergency department due to worsening confusion, cough, agitation, and paranoia. The patient's information is obtained after review of the patient's medical records and discussion with professional medical
providers.
The patient reportedly was hospitalized at an outside hospital following generalized pain where he was discovered to have endocarditis, discitis, acute thrombocytopenia, and acute cholecystitis. The patient was discovered also to have Enterococcus
bacteremia and was discharged to acute rehab. Since his hospitalization, the patient has been evaluated by hematology who suggested that chronic thrombocytopenia has been present for 15 years. Subsequent evaluators indicated that the patient was
described as uncooperative with the patient placed on long-term antibiotics. The patient continued to be described as not fully responsive and agitated leading to psychiatric consultation. Patient's family indicated that the patient himself did
not have behavioral changes prior to this hospitalization.
Objective Data
Vital Signs
Temp Pulse Resp BP Pulse Ox
36.4 C 93 17 125/62 97
07/01/24 15:11 07/01/24 15:11 07/01/24 15:11 07/01/24 15:11 07/01/24 15:11
Lab Results
07/01/24 05:14
07/01/24 05:14
PT 18.4 Sec (11.4-14.6) H 06/25/24 11:08
INR 1.48 06/25/24 11:08
APTT 30.9 Sec (23.4-35.0) 06/25/24 11:08
Sodium 145 mmol/L (135-145) 07/01/24 05:14
Potassium 3.3 mmol/L (3.5-5.1) L 07/01/24 05:14
BUN 10 mg/dl (9-20) 07/01/24 05:14
Glucose 113 mg/dl (70-99) H 07/01/24 05:14
Calcium 9.6 mg/dl (8.4-10.2) 07/01/24 05:14
Tcg-M-Ydaixqdadnf Pept 912 pg/ml 06/24/24 21:47
Vitamin B12 915 pg/ml (239-931) 06/25/24 15:28
Patient Allergies
No Known Allergies Allergy (Unverified 06/24/24 21:14)
Review of Systems
-
Unable to obtain full review of systems at this time due to: Dementia and Lethargy
History Source: Patient
All other systems: Reviewed and negative
Physical Exam
-
General: No Apparent Distress and Appears Stated Age
Eyes: Round OU, [place] Conjunctivae and No Ptosis
HEENT: Anicteric and Moist Mucous Membranes
Neck: Full Range of Motion
Respiratory: No Dyspnea
Cardiac: No JVD
GI: Non-distended
Skin: Unremarkable
Extremities: No Clubbing, No Cyanosis and No Edema
Psych: Unable to Assess
Extended Neurological Exam
Mood & Affect: Unable to Assess
Attention Span & Concentration: Interactive, Closes Eyes after Stimulation (After approximately 1 to 2 seconds) and Other (Unable to perform most single step requests); Negative Awake or Alert
Memory: Able to Recall (Own name) and Unable to Recall Personal History
Tremor: Hand Tremor Absent and Head Tremor Absent
Speech: Severely Reduced Output; Negative Quality Unremarkable (Mumbled)
Cranial Nerve II: Left Eye: Pupillary Size Unremarkable and Unable to Assess Visual Linda
Cranial Nerve II: Right Eye: Pupillary Size Unremarkable and Unable to Assess Visual Linda
Cranial Nerves III, IV, : Extraocular Movement: Grossly Intact
Cranial Nerve VII: Facial Symmetry: Normal Facial Symmetry
Cranial Nerve VIII: Hearing: Unremarkable Hearing to Normal Conversational Volume
Cranial Nerve XI: Shoulder Shrug: Unremarkable
Muscle Strength, Overall: Spontaneously Moves (All extremities briefly and minimally)
Muscle Bulk & Tone: Bulk Unremarkable and Tone Unremarkable
Pronator Drift: Unable to Assess
Deep Tendon Reflexes: Absent Throughout
Cold Sensation: Unable to Assess
Vibration Sensation: Unable to Assess
Touch Sensation: Unremarkable
Coordination: Unable to Assess
Babinski Sign: Absent Bilaterally
Gait & Station: Unable to Assess
Data Reviewed
-
MRI Head: Report Reviewed and Image Reviewed
Labs: Report Reviewed
Reviewed with: Physician
Old Records: Summarized
Medications
-
Active Medications
Generic Name Dose Route Start Last Admin
Trade Name Freq PRN Reason Stop Dose Admin
Acetaminophen 650 mg 06/25/24 01:02 06/28/24 19:58
Acetaminophen 325 Mg Tablet PO 07/23/24 01:01 650 mg
Q4HPRN PRN Administration
mild pain/temp>100F
Amoxicillin/Clavulanate Potassium 1 tablet 06/29/24 20:00 07/01/24 08:07
Amoxicillin (500 Mg)/Clavulanate (125 Mg) Tablet PO 07/03/24 23:59 1 tablet
Q12 LIVAN Administration
Aspirin 81 mg 07/01/24 16:00
Aspirin 81 Mg Chewable Tablet PO 07/29/24 15:59
DAILY LIVAN
Carvedilol 6.25 mg 06/25/24 08:00 07/01/24 08:06
Carvedilol 6.25 Mg Tablet PO 07/23/24 07:59 6.25 mg
BID LIVAN Administration
Guaifenesin 600 mg 06/25/24 08:00 07/01/24 08:06
Guaifenesin 600 Mg Extended Release Tablet PO 07/23/24 07:59 600 mg
Q12 LIVAN Administration
Haloperidol Lactate 0.5 mg 06/29/24 17:04 06/30/24 04:49
Haloperidol 5 Mg/Ml 1 Ml Vial IV 07/27/24 17:03 0.5 mg
Q4HPRN PRN Administration
agitation / violence
Sodium Chloride 1,000 mls @ 75 mls/hr 06/27/24 17:00 06/28/24 07:27
0.45%Nacl IV 1,000 mls
[id number] LIVAN Administration
Isosorbide Mononitrate 30 mg 06/25/24 08:00 07/01/24 08:06
Isosorbide Mononitrate 30 Mg Extended Release Tablet PO 07/23/24 07:59 30 mg
DAILY LIVAN Administration
Lorazepam 0.5 mg 07/01/24 13:01 07/01/24 13:12
Lorazepam 2 Mg/Ml Vial IV 07/01/24 20:59 0.5 mg
ONCE PRN Administration
GIVE 30 MINS BEFORE MRI
Pantoprazole Sodium 40 mg 06/25/24 08:00 07/01/24 08:07
Pantoprazole 40 Mg Delayed Release Tablet PO 07/23/24 07:59 40 mg
DAILY LIVAN Administration
Risperidone 0.5 mg 06/25/24 13:39 06/28/24 17:33
Risperidone 0.5 Mg Orally Disintegrating Tablet PO 07/23/24 13:38 0.5 mg
Q6H PRN Administration
agitation
Risperidone 0.25 mg 06/27/24 08:00 07/01/24 08:07
Risperidone 0.5 Mg Orally Disintegrating Tablet PO 07/25/24 07:59 0.25 mg
DAILY LIVAN Administration
Risperidone 0.5 mg 06/26/24 22:00 06/30/24 20:48
Risperidone 0.5 Mg Orally Disintegrating Tablet PO 07/24/24 21:59 0.5 mg
HS LIVAN Administration
Rosuvastatin Calcium 20 mg 06/25/24 22:00 06/30/24 20:48
Rosuvastatin (Crestor) 20 Mg Tablet PO 07/23/24 21:59 20 mg
HS LIVAN Administration
Sodium Chloride 0 flush 06/26/24 18:00
Sodium Chloride 0.9% (Flush) Syringe IV 07/24/24 17:59
PER PROTOCOL LIVAN
Sodium Chloride 0.25 ml 07/01/24 13:02 07/01/24 13:11
Nss (Pf) 10 Ml Vial For Ativan 0.5 Mg Dose IV 07/01/24 20:59 0.25 ml
ONCE PRN Administration
TO DILUTE ATIVAN
Home Medications
�Medication �Instructions �Recorded
acetaminophen 325 mg tablet 650 mg PO Q4HPRN PRN mild 06/24/24
pain/temp>100F
aspirin 81 mg tablet,delayed 81 mg PO DAILY Blood Clot 06/24/24
release Prevention/Tx
bisacodyl 10 mg rectal suppository 10 mg MA DAILYPRN PRN if mom is 06/24/24
(Dulcolax (bisacodyl)) ineffective
carvedilol 6.25 mg tablet 6.25 mg PO BID Heart 06/24/24
Disease/Condition
daptomycin 500 mg intravenous 550 mg IV HS Infection 06/24/24
solution
isosorbide mononitrate 30 mg 30 mg PO DAILY Heart 06/24/24
tablet,extended release 24 hr Disease/Condition
magnesium hydroxide 400 mg/5 mL 30 ml PO DAILYPRN PRN if no bm x 3 06/24/24
oral suspension (Milk of Magnesia) days
pantoprazole 40 mg tablet,delayed 40 mg PO DAILY Gastrointestinal 06/24/24
release Issue
potassium chloride 20 mEq 20 meq PO DAILY Electrolyte 06/24/24
tablet,extended release Repletion
rosuvastatin 20 mg tablet 20 mg PO HS High Cholesterol 06/24/24
sacubitril 24 mg-valsartan 26 mg 1 tab PO DAILY Heart Failure 06/24/24
tablet
sodium chloride 0.9 % 10 ml IV TID iv line flush 06/24/24
sodium phosphates 19 gram-7 118 ml MA DAILYPRN PRN if dulcolax 06/24/24
gram/118 mL enema (Fleet Enema) is ineffective
torsemide 20 mg tablet 20 mg PO DAILY Fluid 06/24/24
Retention/Swelling
tramadol 50 mg tablet 50 mg PO Q8HPRN PRN moderate to 06/24/24
severe pain
Past History
Past History
ED Past Medical History: CAD, HTN and Other (Endocarditis, chronic thrombocytopenia); Negative Renal failure (CKD 3)
ED Past Surgical History: Cardiac (CABG, defibrillator)
Social History
Tobacco: Non-smoker
Alcohol: None
Personal:
Employment: Retired
Family History
Family History: Other (reviewed and non-contributory)
[2024-07-01] MEDS: LOW STRENGTH ASPIRIN 81 MG PO (16:03)
--- NOTE | 2024-07-01 16:13 | CM ---
Pt remains on Med sitter.
Behaviors are less.
Spoke with Clemencia at [facility] she interested but will need to be off med sitter x 24 hours.
Spoke with Lucía Santiago she said she will review his case tomorrow.
[facility]
[2024-07-01 17:09] LABS: TSH Reflex To Free T4 1.03 uIU/ml (0.47-4.68)
[2024-07-01] MEDS: THIAMINE INJECTION 100 MG IV (18:10)
[2024-07-01] MEDS: RISPERDAL M-TAB (ORALLY DISINTEGRATING) 0.5 MG PO (20:25)
[2024-07-01] MEDS: CRESTOR 20 MG PO (20:27)
[2024-07-02 03:20] VITALS: BP 139/72
[2024-07-02] MEDS: RISPERDAL M-TAB (ORALLY DISINTEGRATING) 0.5 MG PO ×2 (03:22→21:36)
[2024-07-02 06:00] VITALS: BMI 31.4
[2024-07-02 06:06] LABS: Hematocrit 32.5 % (39.0-52.0); Mean Corp Hgb Conc. 33.8 g/dL (33.0-37.0); Mean Corpuscular Hgb 33.6 pg (27.0-31.0); Mean Corpuscular Volume 99.4 fL (80.0-94.0); Mean Platelet Volume 11.2 fL (7.4-10.4); Platelet Count 53 10^3/uL (130-400); Red Blood Cell Count 3.27 10^6/uL (4.70-6.10); Red Cell Dist. Width 13.7 % (11.5-14.5)
[2024-07-02 06:16] LABS: ALT (SGPT) 21 U/L (0-50); AST (SGOT) 31 U/L (17-59); Albumin 3.5 g/dl (3.5-5.0); Alkaline Phosphatase 38 U/L (38-126); Blood Urea Nitrogen 9 mg/dl (9-20); Calcium 9.8 mg/dl (8.4-10.2); Carbon Dioxide 24 mmol/L (22-30); Chloride 109 mmol/L (98-107); Estimated Creatinine Clearance 36 ml/min; Glucose 130 mg/dl (70-99); HDL Cholesterol 26 mg/dl; LDL Cholesterol, Calculated 33 mg/dl; Potassium 3.4 mmol/L (3.5-5.1); Sodium 144 mmol/L (135-145); Total Bilirubin 0.9 mg/dl (0.2-1.3); Total Cholesterol 79 mg/dl (50-199); Total Protein 5.6 g/dl (6.3-8.2); Triglyceride 100 mg/dl (10-149); Very Low Density Lipoprotein 20 mg/dl (0-30)
[2024-07-02 07:32] VITALS: BP 156/89
[2024-07-02 08:07] LABS: % Basophils 0.4 % (0-2); % Eosinophils 36.5 % (0-6); % Immature Granulocytes 0.6 % (0-0.5); % Lymphocytes 16.4 % (20.5-51.1); % Monocytes 8.1 % (1.7-9.3); Absolute Eosinophils 2.9 10^3/uL (0-0.7); Absolute Immature Granulocytes 0.1 10^3/uL (0-0.05); Absolute Lymphocytes 1.3 10^3/uL (1.2-3.4); Absolute Monocytes 0.7 10^3/uL (0.1-0.6); Nucleated Red Blood Cells % 0 % (-)
--- NOTE | 2024-07-02 08:50 | PTCARENOTE ---
telemetry monitor alarmed. Pt tachycardic with PVC's, SU=721's-130's. Pt expressed need to void. Resident at bedside. Attending made aware. New order for magnesium level provided.
[2024-07-02] MEDS: KCL 260 MEQ IV (09:05)
[2024-07-02] MEDS: AUGMENTIN 500 MG/125 MG 1 TABLET PO (09:08)
[2024-07-02 09:09] LABS: Glycohemoglobin (HgbA1c) 5.7 % (4.0-5.6)
[2024-07-02] MEDS: COREG 6.25 MG PO ×2 (09:09→20:10)
[2024-07-02] MEDS: IMDUR (EXTENDED RELEASE) 30 MG PO (09:09)
[2024-07-02] MEDS: TYLENOL 650 MG PO ×2 (09:10→20:16)
[2024-07-02] MEDS: MUCINEX 600 MG PO ×2 (09:10→20:10)
[2024-07-02] MEDS: LOW STRENGTH ASPIRIN 81 MG PO (09:10)
[2024-07-02] MEDS: PROTONIX 40 MG PO (09:11)
[2024-07-02] MEDS: THIAMINE INJECTION 100 MG IV (09:12)
[2024-07-02] MEDS: RISPERDAL M-TAB (ORALLY DISINTEGRATING) 0.25 MG PO (09:42)
--- NOTE | 2024-07-02 09:46 | W.PN.ONC2 ---
Today's Communication / Plan
-
I discussed case with his provider at [facility] [phone] who has no records prior to [facility] hospitalization and no PCP prior on record. 06/16/2024 CBC showed a platelet count 64,000. His [facility] records document a diagnosis of
CCUS as etiology of his chronic thrombocytopenia and received 2 unit of platelet transfusions during his [facility] hospitalization. I also reached out to pt son, Prem, who reports chronic thrombocytopenia but does not know baseline or if has ever
been evaluated by a director building. He denies that his father was a heavy ETOH drinker. He is unclear on etiology of thrombocytopenia.
Acute thrombocytopenia has resolved with platelet count today ~50,000. I will order an US of the abdomen to evaluate liver and spleen in the setting of chronic thrombocytopenia, however, no further inpatient evaluation is needed for chronic
thrombocytopenia. No objection to antiplatelet, anticoagulation, nsaids in the absence of bleeding. I provided my contact information to Hakeem, pt son, so he could pursue further evaluation outpatient if desires.
Hematology will sign off -please reach out for any further questions or concerns.
Impression
Impression
LLL PNA
hypotension
recent hospitalization at [facility] for management of Enterococcus Bacteremia d/t acute cholecystitis c/b discitis and infected defibrillator wire. s/p percutaneous analy tube
acute on chronic thrombocytopenia likely consumptive in setting of infection, HIT neg-he reports recent baseline 50,000 and chronic thrombocytopenia over the past 15 years of unknown etiology. No B12 or folate deficiency.
hypofibrinogenemia
Renal insufficiency
HFrEF
encephalopathy
left centrum semiovale demonstrated by MRI of brain is minimally suggestive of subacute stroke
Plan
Plan
transfuse platelets <10, prn <50 if bleeding
transfuse cryo prn bleeding if fibrinogen <150
monitor for bleeding
Abx per ID
MINDI/CKD per nephrology
CAD/CHF per cardiology
possible CVA/enceph evaluation by neurology underway
Subjective/Objective
Subjective
no new complaints
Vital Signs:
Vital Signs
Temp Pulse Resp BP Pulse Ox
97.7 F 100 16 156/89 95
07/02/24 07:32 07/02/24 09:09 07/02/24 07:32 07/02/24 09:09 07/02/24 07:32
Lab Results:
Laboratory Data
WBC 8.0 10^3/uL (4.8-10.8) 07/02/24 05:24
Hgb 11.0 g/dL (13.0-18.0) L 07/02/24 05:24
Plt Count 53 10^3/uL (130-400) L 07/02/24 05:24
PT 18.4 Sec (11.4-14.6) H 06/25/24 11:08
INR 1.48 06/25/24 11:08
APTT 30.9 Sec (23.4-35.0) 06/25/24 11:08
eGFR 53.50 07/02/24 05:24
[2024-07-02 10:09] LABS: Magnesium 1.7 mg/dl (1.6-2.3)
[2024-07-02 11:00] VITALS: BP 147/87
--- NOTE | 2024-07-02 11:47 | W.PN.NEPH.PH ---
Today's Communication / Plan
-
Encourage p.o. fluid intake for hyponatremia
Holding Lasix and Entresto
Assessment/Plan
-
Assessment
MINDI
CKD 3A, 1.44
Discitis
Pacer wire vegetation
Cholecystitis/TTube
Recent enterococcal bacteremia
Thrombocytopenia
Confusion, uncooperative
Plan
Follow BMP
Hemodynamically stable
encourage free water intake for hypernatremia-will need assistance throughout day for access to fluids, sodium down to 144
no entresto
IV Antibiotics per infectious disease
off diuretics weights stable
Creatinine stable at baseline 1.4
-
-
Date of Service: July 02, 2024
CC / HPI / ROS
-
Chief Complaint:
Acute kidney injury
History of Present Illness:
Creatinine down to 1.5
Hemodynamically stable
On daptomycin re: enterococcal bacteremia
Zosyn re: PNA
Hypernatremia at 144
mild acidosis 23
Review of Systems:
No fevers
Nonoliguric
Weights down
Labs
-
Labs:
WBC 8.0 10^3/uL (4.8-10.8) 07/02/24 05:24
RBC 3.27 10^6/uL (4.70-6.10) L 07/02/24 05:24
Hgb 11.0 g/dL (13.0-18.0) L 07/02/24 05:24
Hct 32.5 % (39.0-52.0) L 07/02/24 05:24
Plt Count 53 10^3/uL (130-400) L 07/02/24 05:24
Sodium 144 mmol/L (135-145) 07/02/24 05:24
Potassium 3.4 mmol/L (3.5-5.1) L 07/02/24 05:24
Chloride 109 mmol/L (98-107) H 07/02/24 05:24
Carbon Dioxide 24 mmol/L (22-30) 07/02/24 05:24
BUN 9 mg/dl (9-20) 07/02/24 05:24
Creatinine 1.3 mg/dL (0.7-1.3) 07/02/24 05:24
eGFR 53.50 07/02/24 05:24
Glucose 130 mg/dl (70-99) H 07/02/24 05:24
Calcium 9.8 mg/dl (8.4-10.2) 07/02/24 05:24
Wjf-C-Clipbsjrgfs Pept 912 pg/ml 06/24/24 21:47
Albumin 3.5 g/dl (3.5-5.0) 07/02/24 05:24
Physical Exam
-
Vital Signs:
Vital Signs
Temp Pulse Resp BP Pulse Ox
97.7 F 100 16 156/89 95
07/02/24 07:32 07/02/24 09:09 07/02/24 07:32 07/02/24 09:09 07/02/24 07:32
Cardiovascular:: Regular rate and rhythm
Respiratory:: Bilateral: Coarse
Lung Excursion:: Normal
Abdomen:: Nontender and Soft
Bowel Sounds:: Normal
Extremity Edema:: None: Bilateral:
--- NOTE | 2024-07-02 12:54 | W.PN.HOSP.TC ---
Addendum entered and electronically signed by Steve Lopez MD 07/02/24 14:09:
seen and examined by me independently in collaboration with the medical claims representative Patsy.
Lab data and imaging data reviewed.
Addendum as below :
Patient quite alert and oriented to self and person. He knew he is in hospital but didnt know that name of the hospital.
Voicing no specific complaints. Denies any pain or discomfort.
Afebrile. Hemodynamically stable. Oxygenating well on room air.
Chest without wheeze currently. No respiratory distress.
Heart sinus rhythm persistent.
Abdomen soft without tenderness.
Plantars are going down.
Acute hypoxic respiratory insufficiency suspected secondary to pneumonic process-unclear if its bacterial or eosinophilic. Was on Zosyn which was transitioned to Augmentin. Repeat chest x-ray shows left lower lobe opacification but no
complication. Clinically not acting like active infection.
Initial thoughts for eosinophilia was possible Daptomycin but with continued rise despite off of it now concern if sec to zosyn. No rash .CW ABX per ID and follow.
Resolved MINDI. Resume GDMT per cards. Volume status compensated.
Rearding confusion - he remains so but improved. Will check with family re: baseline. Acute lacunar infarct in left frontal area noted on MRI but not sure if clinically correlating. Appt Neuro input-they suspect more TME. continue with ASA .
Chronic thrombocytopenia with improved plt number.Follow as OP per heme.
Reached medical stability for dc back to Rehab.
Tried to reach the son on the listed phone number, mailbox is full so couldnt leave a message. Will continue to attempt to touch base with him.
Original Note:
Today's Communication/Plan
-
Restart aspirin for small stroke, discontinue penicillin due to suspected underlying cause for eosinophilia, restart Entresto at discharge, continue to hold torsemide. Likely discharge to SNF today or tomorrow.
Assessment / Plan
Assessment / Plan
Acute hypoxemic respiratory secondary to pneumonia
-Recently hospitalized for Enterococcus bacteremia, on long-term IV antibiotics with daptomycin with end date 06/29
-daptomycin discontinued on 06/29
-Transition Zosyn -> Augmentin day 11/21
-ID following
-Cultures (-)
-Repeat chest x-ray pending. If nonbacterial in nature (eosinophilic pneumonia?) Possible resolution after discontinuation of antibiotic
-Incentive spirometer
MINDI on CKD 3a
- Resolved. Back at baseline 1.4.
- Continue to monitor
- baseline creat 1.4
- Nephrology following
Eosinophilia
- 29.8 -> 26 -> 36.5%
- Likely secondary to antibiotics.
-Unlikely to be caused by daptomycin as patient has discontinued it. ID suspects penicillin.
-ID discussed at length no long-term antibiotic suppression for patient with daughter. She understands.
-Will likely discharge without long-term antibiotic suppression per ID recommendations.
Toxic metabolic encephalopathy
- New onset according to son starting 06/24 prior to hospitalization. No baseline dementia or agitation
- Drug-induced?
- Evaled by psych, start prn risperidone
- 0.5 haldol IV prn
- Wrist restraints if aggressive
- MRI revealed tiny subacute lacunar infarct
- Improvement today. AAOx3
Tiny subacute lacunar infarct
� Neurology consulted
� Restarted aspirin as MINDI resolved despite low platelets
-
Enterococcus bacteremia from outside hospital for suspected endocarditis
-Midline pulled out 06/[address] [facility]
-Daptomycin finishes tmrw no need to replace
-05/25/2024 DAYA positive in hospital 0.6 x 1.1 cm area of heterogeneous caking of none mobile mass attached to the ventricular pacemaker lead chest. To the tricuspid valve orifice. Etiologies include thrombus or vegetation
- pt not good candidate for lead extraction. DAYA records obtained from [place]. No repeat DAYA at this time.
-Unlikely to be discharged on long-term antibiotic therapy as increase in eosinophil count likely due to penicillin.
Thrombocytopenia�chronic
- 48 -> 53
-Peripheral smear pending
-Hematology following
-Transfuse platelets for active bleeding with platelet count of less than 30,000
-Transfuse platelets without active bleeding for platelet count less than than 10,000
-Restart aspirin
-Compression device for DVT prophylaxis
HFrEF
� Currently not in exacerbation
� EF 25 to 30% echo 06/25/2024
� Notable decrease from prior DAYA on 05/25/2024 LVEF 50 to 55%
- Restart Entresto at discharge, repeat BMP in a week per cardiology
- Discontinue torsemide as patient is euvolemic
Stage 2 right buttock pressure injury
- Wound care evaluated
CAD
-S/p quadruple bypass
-Not on ASA as plt less than 50,000
-Continue HI statin
HyperNatremia
- Resolved
Hypokalemia
-Replete PRN
DVT heparin
Low sodium diet
DNR
Anticipated Discharge: Within 24 hours
Subjective/Interval History
-
Date of Service: July 02, 2024
Objective Data
-
Labs:
Laboratory Results
07/02/24
05:24
WBC 8.0
Hgb 11.0 L
Hct 32.5 L
Plt Count 53 L
Sodium 144
Potassium 3.4 L
Chloride 109 H
Carbon Dioxide 24
BUN 9
Creatinine 1.3
Glucose 130 H
Calcium 9.8
Total Bilirubin 0.9
AST 31
ALT 21
Alkaline Phosphatase 38
Vital Signs:
Vital Signs
Temp Pulse Resp BP Pulse Ox
97.7 F 100 16 156/89 95
07/02/24 07:32 07/02/24 09:09 07/02/24 07:32 07/02/24 09:09 07/02/24 07:32
I&O
07/01/24 07/02/24 07/03/24
06:59 06:59 06:59
Intake Total 120 / 120 220 / 220 240 / 240
Output Total 225 / 225 100 / 100 100 / 100
Balance -105 / -105 120 / 120 140 / 140
Review of Systems
-
History Source: Patient
EENT: Reports No Symptoms Reported
Respiratory: Reports No Symptoms
Cardiac: Reports No Symptoms
Abdomen/GI: Reports No Symptoms
Neuro: Reports No Symptoms
Physical Exam
-
General: No Apparent Distress
Respiratory: Wheezes
Cardiac: Regular Rhythm and S1/S2
GI: Soft, Nontender, Nondistended and Normal Bowel Sounds
Musculoskeletal: No Edema
Skin: Warm
Neuro: Awake and Alert; Negative Oriented
Psych: Calm
--- NOTE | 2024-07-02 13:57 | W.PN.ID1 ---
Date of Service
Date of Service: July 02, 2024
Today's Communication
Continue antibiotics.
Assessment / Plan
History of enterococcal bacteremia
Suspected Endocarditis
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
Recent cholecystitis with T-tube placement
Possible Right lower lobe PNA
Thrombocytopenia - improving, chronic
Eosinophilia
AMS, agitation
MINDI on CKD stage III
- improved
HTN
Chronic thrombocytopenia
CHF
Dyslipidemia
BPH
Lumbar spondylolisthesis
Recommendations:
S/P 6 week course of daptomycin.
Eosinophilia ongoing. Will continue to follow; has not decreased now that the patient is off daptomycin. May also have been secondary to Zosyn, which has now been stopped, but patient remains on Augmentin.
Completing Augmentin today.
Plan was to place patient on suppressive amoxicillin (500 mg p.o. twice daily) indefinitely, but I am increasingly concerned over ongoing eosinophilia.
I reached out to [facility] further input. I have also discussed possibly stopping amoxicillin suppression with the patient's [id number], but pt's son is the decision maker.
Will continue with amoxicillin for now, pending further input from family and consultants.
����������������������������������������������������������
Chief Complaint
-: Other (endocarditis)
Subjective / Review of Systems
Review of Systems: No Fever and No Chills
Vital Signs / Physical Exam
Vital Signs
Vital Signs
Temp Pulse Resp BP Pulse Ox
97.9 F 94 16 147/87 95
07/02/24 11:00 07/02/24 11:00 07/02/24 11:00 07/02/24 11:00 07/02/24 11:00
Physical Exam
Constitutional: No Acute Distress, Comfortable, Chronically Ill and Non-toxic
Eyes: Sclera Anicteric
Cardiovascular: Regular Rate and S1/S2; Negative Murmur or Rub
Pulmonary: Clear, Symmetric and Non Labored; Negative Wheezes or Rales
Gastrointestinal: Soft, Non Tender, Non Distended and Normal Bowel Sounds
Skin: Warm and Dry; Negative Rash or Jaundice
Neurological: Awake and Alert
Lines: Other (pacemaker no erythema, warmth or tenderness)
Objective Data
Lab Data
Lab Results
07/02/24 05:24
07/02/24 05:24
ESR 7 mm/hour (0-20) 06/26/24 04:05
PT 18.4 Sec (11.4-14.6) H 06/25/24 11:08
INR 1.48 06/25/24 11:08
APTT 30.9 Sec (23.4-35.0) 06/25/24 11:08
Estimated Creat Clear 36 ml/min 07/02/24 05:24
Lactic Acid 1.5 mmol/L (0.7-2.0) 06/24/24 22:47
Total Bilirubin 0.9 mg/dl (0.2-1.3) 07/02/24 05:24
AST 31 U/L (17-59) 07/02/24 05:24
ALT 21 U/L (0-50) 07/02/24 05:24
Alkaline Phosphatase 38 U/L (38-126) 07/02/24 05:24
C-Reactive Protein < 5.00 mg/L (0.0-10.00) 06/26/24 04:05
Most recent labs reviewed.
Micro Results:
06/24/24 22:47 Blood Culture - Final
Blood/Venous No Growth - Final Report
06/24/24 22:47 Blood Culture - Final
Blood/Venous No Growth - Final Report
06/25/24 01:45 MRSA Screen - Final
Nose No Methicillin Resistant Staphylococcus aureus isolated.
Imaging:
07/01/2024 CXR (2 view): There is interstitial opacification with patchy airspace opacities most pronounced in the left lower lobe which may represent multifocal pneumonia or edema/atelectasis.
06/24/2024 CXR (2 view): Right lower lobe opacification is seen, suspicious for pneumonia. Cardiomediastinal silhouette are within the limits of normal. No pneumothorax, pleural effusion or mediastinal shift noted. A left-sided cardiac device is
seen with intact wires. Sternal wires are also noted. Please see full dictation for additional detail.
06/25/2024 CT head without contrast: No acute intracranial abnormalities noted. Mild atrophy and mild chronic small vessel changes noted. Please see full dictation for additional detail.
--- NOTE | 2024-07-02 15:08 | CM ---
Addendum entered by Marlin Michaels RN 07/02/24 15:45:
Obtained auth for [facility] via [employer] [facility] for 7 days starting 07/03/24 .Auth number is [id number] .Lucía From [facility] given information.
Original Note:
Med sitter removed.
Spoke with Lucía Santiago she said she can accept case after auth obtained..
Spoke with Hakeem son he was provide information that [facility] can accept him after auth.
He is in agreement with transfer to [facility].
IMM emailed to him [email or web address].
[facility]
report [phone]
fax [phone]
PLAN To [facility] after auth
[2024-07-02 15:56] VITALS: BP 149/88
[2024-07-02] MEDS: AMOXIL 500 MG PO (20:02)
[2024-07-02] MEDS: CRESTOR 20 MG PO (21:36)
[2024-07-02 23:03] VITALS: BP 149/76
[2024-07-03 05:40] LABS: % Basophils 0.6 % (0-2); % Eosinophils 29.1 % (0-6); % Immature Granulocytes 0.3 % (0-0.5); % Lymphocytes 18.7 % (20.5-51.1); % Monocytes 8.9 % (1.7-9.3); % Neutrophils 42.4 % (42.2-75.2); Absolute Eosinophils 1.9 10^3/uL (0-0.7); Absolute Lymphocytes 1.2 10^3/uL (1.2-3.4); Absolute Monocytes 0.6 10^3/uL (0.1-0.6); Absolute Neutrophils 2.7 10^3/uL (1.4-6.5); Hematocrit 30.1 % (39.0-52.0); Hemoglobin 10.5 g/dL (13.0-18.0); Mean Corp Hgb Conc. 34.9 g/dL (33.0-37.0); Mean Corpuscular Hgb 34.5 pg (27.0-31.0); Mean Platelet Volume 11.3 fL (7.4-10.4); Nucleated Red Blood Cells % 0 % (-); Platelet Count 52 10^3/uL (130-400); Red Blood Cell Count 3.04 10^6/uL (4.70-6.10); Red Cell Dist. Width 13.5 % (11.5-14.5); White Blood Cell Count 6.4 10^3/uL (4.8-10.8)
[2024-07-03 05:56] LABS: ALT (SGPT) 18 U/L (0-50); AST (SGOT) 25 U/L (17-59); Albumin 3.4 g/dl (3.5-5.0); Alkaline Phosphatase 36 U/L (38-126); Blood Urea Nitrogen 8 mg/dl (9-20); Calcium 9.6 mg/dl (8.4-10.2); Carbon Dioxide 26 mmol/L (22-30); Chloride 110 mmol/L (98-107); Estimated Creatinine Clearance 38 ml/min; Glucose 110 mg/dl (70-99); Potassium 3.4 mmol/L (3.5-5.1); Sodium 145 mmol/L (135-145); Total Bilirubin 0.9 mg/dl (0.2-1.3); Total Protein 5.4 g/dl (6.3-8.2); eGFR 58.89
[2024-07-03 06:00] VITALS: BMI 31.6
[2024-07-03] MEDS: THIAMINE INJECTION 100 MG IV (09:05)
[2024-07-03] MEDS: KCL 260 MEQ IV (09:10)
[2024-07-03] MEDS: MUCINEX 600 MG PO (09:11)
[2024-07-03] MEDS: RISPERDAL M-TAB (ORALLY DISINTEGRATING) 0.25 MG PO (09:11)
[2024-07-03] MEDS: PROTONIX 40 MG PO (09:11)
[2024-07-03] MEDS: LOW STRENGTH ASPIRIN 81 MG PO (09:12)
[2024-07-03] MEDS: AMOXIL 500 MG PO (09:12)
[2024-07-03] MEDS: IMDUR (EXTENDED RELEASE) 30 MG PO (09:12)
[2024-07-03] MEDS: COREG 6.25 MG PO (09:13)
--- NOTE | 2024-07-03 09:20 | W.PN.ONC2 ---
Today's Communication / Plan
-
Eosinophil count on admission was 0.7-0.9 and peaked during hospitalization on 06/30 to 3.1. Eosinophils are now trending down again to 1.9 today since Daptomycin and Zosyn last dose was 06/29. He is now on amoxicillin. Etiology of elevated
eosinophils can be caused by various conditions including allergic disease, medication reaction, inflammatory, and neoplastic diseases. Types of drugs that are associated with eosinophilia include but not limited to penicillins, cephalosporins,
daptomycin, NSAIDs. Pt is on room air, CXR on 07/01 shows that there is interstitial opacification with patchy airspace opacities most pronounced in the left lower lobe which may represent multifocal pneumonia or edema/atelectasis. Could consider
CT chest to further evaluation, however, with improving eosinophilia and no new respiratory symptoms, would hold off for now.
Consider MRI abdomen to further evaluate liver mass noted on US
Impression
Impression
LLL PNA
hypotension
recent Enterococcus Bacteremia d/t acute cholecystitis c/b discitis and infected defibrillator wire. s/p percutaneous analy tube
acute on chronic thrombocytopenia likely consumptive in setting of infection, HIT neg-he reports recent baseline 50,000 and chronic thrombocytopenia over the past 15 years of unknown etiology. No B12 or folate deficiency. Normal spleen and no
evidence of cirrhosis on ab US
hypofibrinogenemia
Renal insufficiency
HFrEF
encephalopathy
left centrum semiovale demonstrated by MRI of brain is minimally suggestive of subacute stroke
eosinophilia, likely drug induced, improving since Zosyn/Dapto stopped 06/29
5.4x5.2x4.8 liver mass
Plan
Plan
transfuse platelets <10, prn <50 if bleeding
transfuse cryo prn bleeding if fibrinogen <150
monitor for bleeding
Abx per ID
MINDI/CKD per nephrology
CAD/CHF per cardiology
possible CVA/enceph evaluation by neurology underway
MRI abdomen to further evaluate liver mass
Subjective/Objective
Subjective
no new complaints
Vital Signs:
Vital Signs
Temp Pulse Resp BP Pulse Ox
97.9 F 88 18 149/76 95
07/02/24 23:03 07/03/24 09:13 07/02/24 23:03 07/03/24 09:13 07/02/24 23:03
Lab Results:
Laboratory Data
WBC 6.4 10^3/uL (4.8-10.8) 07/03/24 05:02
Hgb 10.5 g/dL (13.0-18.0) L 07/03/24 05:02
Plt Count 52 10^3/uL (130-400) L 07/03/24 05:02
PT 18.4 Sec (11.4-14.6) H 06/25/24 11:08
INR 1.48 06/25/24 11:08
APTT 30.9 Sec (23.4-35.0) 06/25/24 11:08
eGFR 58.89 07/03/24 05:02
Orders
Orders
Orders From Last 24 Hours
07/02/24 10:02
US Abdomen Complete/Upper Routine
--- NOTE | 2024-07-03 09:39 | W.PN.NEPH.PH ---
Today's Communication / Plan
-
follow BMP
Assessment/Plan
-
Assessment
MINDI
CKD 3A, 1.44
Discitis
Pacer wire vegetation
Cholecystitis/TTube
Recent enterococcal bacteremia
Thrombocytopenia
Confusion, uncooperative
Plan
Follow BMP
Hemodynamically stable
encourage free water intake for hypernatremia-will need assistance throughout day for access to fluids
NO ENTRESTO ON DISCHARGE
IV Antibiotics per infectious disease
off diuretics weights stable
replete K
-
-
Date of Service: July 03, 2024
CC / HPI / ROS
-
Chief Complaint:
Acute kidney injury
History of Present Illness:
Creatinine down to 1.2
Hemodynamically stable
On daptomycin re: enterococcal bacteremia
Hypernatremia better at 145
mild acidosis resolved
Review of Systems:
No fevers
Nonoliguric
Weights down
Labs
-
Labs:
WBC 6.4 10^3/uL (4.8-10.8) 07/03/24 05:02
RBC 3.04 10^6/uL (4.70-6.10) L 07/03/24 05:02
Hgb 10.5 g/dL (13.0-18.0) L 07/03/24 05:02
Hct 30.1 % (39.0-52.0) L 07/03/24 05:02
Plt Count 52 10^3/uL (130-400) L 07/03/24 05:02
Sodium 145 mmol/L (135-145) 07/03/24 05:02
Potassium 3.4 mmol/L (3.5-5.1) L 07/03/24 05:02
Chloride 110 mmol/L (98-107) H 07/03/24 05:02
Carbon Dioxide 26 mmol/L (22-30) 07/03/24 05:02
BUN 8 mg/dl (9-20) L 07/03/24 05:02
Creatinine 1.2 mg/dL (0.7-1.3) 07/03/24 05:02
eGFR 58.89 07/03/24 05:02
Glucose 110 mg/dl (70-99) H 07/03/24 05:02
Calcium 9.6 mg/dl (8.4-10.2) 07/03/24 05:02
Elm-E-Uhdcwgxytdl Pept 912 pg/ml 06/24/24 21:47
Albumin 3.4 g/dl (3.5-5.0) L 07/03/24 05:02
Physical Exam
-
Vital Signs:
Vital Signs
Temp Pulse Resp BP Pulse Ox
97.9 F 88 18 149/76 95
07/02/24 23:03 07/03/24 09:13 07/02/24 23:03 07/03/24 09:13 07/02/24 23:03
Cardiovascular:: Regular rate and rhythm
Respiratory:: Bilateral: Coarse
Lung Excursion:: Normal
Abdomen:: Nontender and Soft
Bowel Sounds:: Normal
Extremity Edema:: None: Bilateral:
--- NOTE | 2024-07-03 12:27 | CM ---
Pt accepted at [facility].Obtained auth for [facility] via [employer] for 7 days starting 07/03/24 .Auth number is [id number] .Lucía From [facility] given information.
Spoke with Hakeem son he was provide information that [facility] can accept him after auth.
He is in agreement with dc to [facility].
IMM emailed to him [email or web address].
Will need medical nec form
[facility]
report [phone]
fax [phone]
PLAN To [facility] auth completed
--- NOTE | 2024-07-03 14:01 | W.PN.HOSP.TC ---
Today's Communication/Plan
-
Discharge to day with amoxicillin to SNF
Assessment / Plan
Assessment / Plan
Acute hypoxemic respiratory secondary to pneumonia
-Recently hospitalized for Enterococcus bacteremia, on long-term IV antibiotics with daptomycin with end date 06/29
-daptomycin discontinued on 06/29
-Transition Zosyn -> Augmentin day 12/21
-ID following
-Cultures (-)
-Repeat chest x-ray pending. If nonbacterial in nature (eosinophilic pneumonia?) Possible resolution after discontinuation of antibiotic
-Incentive spirometer
MINDI on CKD 3a
- Resolved. Back at baseline
- Continue to monitor
- baseline creat 1.4
- Nephrology following
Eosinophilia
- 29.8 -> 26 -> 36.5%
- Likely secondary to antibiotics.
-Unlikely to be caused by daptomycin as patient has discontinued it. ID suspects penicillin.
-ID discussed at length no long-term antibiotic suppression for patient with daughter. She understands.
-care home anti-biotic therapy per ID and family discussion
Toxic metabolic encephalopathy
- New onset according to son starting 06/24 prior to hospitalization. No baseline dementia or agitation
- Drug-induced?
- Evaled by psych, start prn risperidone
- 0.5 haldol IV prn
- Wrist restraints if aggressive
- MRI revealed tiny subacute lacunar infarct
- Improvement since d/c daptomycin
Tiny subacute lacunar infarct
� Neurology consulted
� Restarted aspirin as MINDI resolved despite low platelets
- Possibly contributed to altered mental status
Enterococcus bacteremia from outside hospital for suspected endocarditis
-Midline pulled out 06/24 at [facility]
-Daptomycin finishes tmrw no need to replace
-05/25/2024 DAYA positive in hospital 0.6 x 1.1 cm area of heterogeneous caking of none mobile mass attached to the ventricular pacemaker lead chest. To the tricuspid valve orifice. Etiologies include thrombus or vegetation
- pt not good candidate for lead extraction. DAYA records obtained from [place]. No repeat DAYA at this time.
-care home anti-biotic therapy at discretion of ID and family decision.
Thrombocytopenia�chronic
- 48 -> 53 ->52
-Peripheral smear pending
-Hematology following
-Transfuse platelets for active bleeding with platelet count of less than 30,000
-Transfuse platelets without active bleeding for platelet count less than than 10,000
-Restart aspirin
-Compression device for DVT prophylaxis
-RUQ US to evaluate for causes of thrombocytopenia per hemeonc -> hepatic mass
Hepatic Mass
- 5.4 x 5.2 x 4.8 cm complex septated predominantly cystic mass in the upper anterior aspect of the right lobe of the liver on RUQ Ultrasound
- Prior 05/[address] without contrast noted 9.4x7.4x7.0 which may incite abscess or resolving hematoma at [facility]
- Improvement from prior imaging
- 6 weeks of antibiotics since then
- recommend follow up US in outpatient in 6-8 weeks. Son in agreement.
HFrEF
� Currently not in exacerbation
� EF 25 to 30% echo 06/25/2024
� Notable decrease from prior DAYA on 05/25/2024 LVEF 50 to 55%
- f/u with primer waterproofing machine adjuster in outpatient to evaluate restarting entresto. Son agrees.
- Discontinue torsemide as patient is euvolemic
Stage 2 right buttock pressure injury
- Wound care evaluated
CAD
-S/p quadruple bypass
-Not on ASA as plt less than 50,000
-Continue HI statin
HyperNatremia
- Resolved
Hypokalemia
-Replete PRN
DVT heparin
Low sodium diet
DNR
Anticipated Discharge: Today
Subjective/Interval History
-
Date of Service: July 03, 2024
Objective Data
-
Labs:
Laboratory Results
07/03/24
05:02
WBC 6.4
Hgb 10.5 L
Hct 30.1 L
Plt Count 52 L
Sodium 145
Potassium 3.4 L
Chloride 110 H
Carbon Dioxide 26
BUN 8 L
Creatinine 1.2
Glucose 110 H
Calcium 9.6
Total Bilirubin 0.9
AST 25
ALT 18
Alkaline Phosphatase 36 L
Vital Signs:
Vital Signs
Temp Pulse Resp BP Pulse Ox
97.9 F 88 18 149/76 95
07/02/24 23:03 07/03/24 09:13 07/02/24 23:03 07/03/24 09:13 07/02/24 23:03
I&O
07/02/24 07/03/24 07/04/24
06:59 06:59 06:59
Intake Total 220 / 220 840 / 840
Output Total 100 / 100 100 / 100
Balance 120 / 120 740 / 740
Review of Systems
-
History Source: Patient
Constitutional: Reports No Symptoms
Respiratory: Reports No Symptoms
Cardiac: Reports No Symptoms
Abdomen/GI: Reports No Symptoms
Neuro: Reports No Symptoms
Physical Exam
-
Respiratory: Clear to Auscultation
Cardiac: Regular Rhythm and S1/S2
GI: Soft, Nontender, Nondistended and Normal Bowel Sounds
Musculoskeletal: No Edema
Neuro: Awake, Alert and Oriented
--- NOTE | 2024-07-03 14:16 | W.PN.ID1 ---
Date of Service
Date of Service: July 03, 2024
Today's Communication
Continue amoxicillin
Assessment / Plan
History of enterococcal bacteremia
Suspected Endocarditis
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
Recent cholecystitis with T-tube placement
Possible Right lower lobe PNA
Thrombocytopenia - improving, chronic
Eosinophilia
AMS, agitation
MINDI on CKD stage III
- improved
HTN
Chronic thrombocytopenia
CHF
Dyslipidemia
BPH
Lumbar spondylolisthesis
Recommendations:
S/P 6 week course of daptomycin.
Eosinophilia ongoing, although absolute eosinophil count improved on today's labs.
Given improvement, continue with lifelong amoxicillin suppression (500 mg p.o. twice daily)
Will follow-up in the office.
����������������������������������������������������������
Chief Complaint
-: Other (endocarditis, possible pacer lead infection; eosinophilia)
Subjective / Review of Systems
Review of Systems: No Fever and No Chills
Vital Signs / Physical Exam
Vital Signs
Vital Signs
Temp Pulse Resp BP Pulse Ox
97.9 F 88 18 149/76 95
07/02/24 23:03 07/03/24 09:13 07/02/24 23:03 07/03/24 09:13 07/02/24 23:03
Physical Exam
Constitutional: No Acute Distress, Comfortable, Chronically Ill and Non-toxic
Head: Normocephalic
Eyes: No Conjunctival Hemorrhage and Sclera Anicteric
Cardiovascular: Regular Rate and S1/S2; Negative S3/S4
Pulmonary: Clear, Symmetric and Non Labored; Negative Wheezes or Rales
Gastrointestinal: Soft, Non Tender, Non Distended and Normal Bowel Sounds
Skin: Warm and Dry; Negative Rash or Jaundice
Neurological: Awake and Alert
Lines: Other (pacemaker no erythema, warmth or tenderness)
Objective Data
Lab Data
Lab Results
07/03/24 05:02
07/03/24 05:02
ESR 7 mm/hour (0-20) 06/26/24 04:05
PT 18.4 Sec (11.4-14.6) H 06/25/24 11:08
INR 1.48 06/25/24 11:08
APTT 30.9 Sec (23.4-35.0) 06/25/24 11:08
Estimated Creat Clear 38 ml/min 07/03/24 05:02
Lactic Acid 1.5 mmol/L (0.7-2.0) 06/24/24 22:47
Total Bilirubin 0.9 mg/dl (0.2-1.3) 07/03/24 05:02
AST 25 U/L (17-59) 07/03/24 05:02
ALT 18 U/L (0-50) 07/03/24 05:02
Alkaline Phosphatase 36 U/L (38-126) L 07/03/24 05:02
C-Reactive Protein < 5.00 mg/L (0.0-10.00) 06/26/24 04:05
Most recent labs reviewed.
Micro Results:
06/24/24 22:47 Blood Culture - Final
Blood/Venous No Growth - Final Report
06/24/24 22:47 Blood Culture - Final
Blood/Venous No Growth - Final Report
06/25/24 01:45 MRSA Screen - Final
Nose No Methicillin Resistant Staphylococcus aureus isolated.
Imaging:
07/01/2024 CXR (2 view): There is interstitial opacification with patchy airspace opacities most pronounced in the left lower lobe which may represent multifocal pneumonia or edema/atelectasis.
06/24/2024 CXR (2 view): Right lower lobe opacification is seen, suspicious for pneumonia. Cardiomediastinal silhouette are within the limits of normal. No pneumothorax, pleural effusion or mediastinal shift noted. A left-sided cardiac device is
seen with intact wires. Sternal wires are also noted. Please see full dictation for additional detail.
06/25/2024 CT head without contrast: No acute intracranial abnormalities noted. Mild atrophy and mild chronic small vessel changes noted. Please see full dictation for additional detail.
Care Review
Plan reviewed with: Physician (Hospitalist)
--- NOTE | 2024-07-03 14:21 | W.PN.UPDATE ---
Update Note
Progress Note Update
Seen and examined by me independently in collaboration with the senior medical technologist.
Lab data and imaging data reviewed.
Addendum as below :
Patient is alert and oriented to self and person. Remains confused about the disease processes and the reasons for hospitalization and treatments.
Discussed with son who says he had no prior given diagnosis of dementia but ever since he got hospitalized at [place] his cognition has taken a hit. He says there is a fluctuation course in his cognition especially worse at night indicating
owning which indicates probably undiagnosed dementia I feel. Did discuss with the son about the MRI findings of left frontal lobe lacunar infarct which may not be playing any role here. Neurology evaluated and advised to continue aspirin.
He finished his course of antibiotics for bacteremia and also for left lower lobe pneumonia. Discussed with ID who recommends to continue with amoxicillin chronic prophylaxis especially now that his Eos numbers are coming down which may be drug
reaction or not. The idea is to repeat a CBC with differential in a week while on amoxicillin and depending on the count to investigate further.
Regarding the finding of the liver cystic mass, we obtained prior CT from [place]. When he was admitted there for cholecystitis and bacteremia there is a liver mass noted at that time felt may be abscess or hematoma. Not aspirated because of
low platelet issue then according to son. The sizes comparatively are much better. plan would be to repeat a CT of the liver with IV contrast in a month to follow on the continued improvement-this plan was discussed with the son on the phone
today.
With regards to GDMT-no diuretics as he is euvolemic and Entresto to be on hold per cardiology and nephrology. This was again communicated to the patient's son. He would follow-up with his primary poultry pinner in [place].
Medically stable for discharge to rehab today.
Total time of discharge 35 minutes
[2024-07-03 15:35] VITALS: BP 125/63
--- NOTE | 2024-07-03 18:04 | W.DCSUMMARY ---
Discharge Summary
Discharge Data
Date of Admission: 06/24/24
Date of Discharge: 07/03/24
-
Pending Results: No
Hospital Course
Primary diagnosis:
Acute hypoxemic respiratory failure secondary to pneumonia
Acute kidney injury
Eosinophilia
Toxic metabolic encephalopathy
Subacute lacunar infarct
Enterococcus bacteremia with pacer wire vegetation
Chronic thrombocytopenia
Hepatic mass
Stage II right buttock pressure injury
Hypernatremia
Hypokalemia
Secondary diagnosis:
HFrEF
CAD
84-year-old male with past medical history of Enterococcus bacteremia secondary to acute cholecystitis with complications of pacer lead vegetation and discitis on IV antibiotics, chronic thrombocytopenia, HFrEF, CAD presented to [facility]
on 06/25/2024 with acute respiratory failure. Chest x-ray and physical exam consistent with pneumonia. Patient also noted to have significant MINDI with creatinine 3.3. Platelets were 27. Due to patient's complicated past medical history, patient
admitted to IMU. Was previously on a 6-week course of daptomycin for complications of Enterococcus bacteremia discharged from [facility]. He went to [facility] for rehab for 10 days. On 06/24, patient grew increasingly agitated and
confused and ripped out midline. He was then admitted here on 06/25. Patient continued on daptomycin and started on Zosyn and fluids for pneumonia. Infectious disease, nephrology, heme-onc were consulted. Cardiology and psychiatry were also later
involved for pacer lead vegetation and patient's agitation and confusion. ID eventually switched to oral Augmentin as prior sensitivities from [place] showed Enterococcus species to be sensitive to it and finish 6 week daptomycin course on 06/29.
Infectious disease also noted increase in eosinophil count over course of hospitalization. Believed it to be secondary to antibiotics (penicillins more specifically). Lifelong suppression with antibiotics is recommended in this patient as chronic
thrombocytopenia makes him a poor candidate for surgical removal of pacer. After long discussion with son, long-term antibiotic therapy with amoxicillin was decided on with follow-up in the outpatient setting for eosinophilia. MINDI resolved with
gentle fluids over course of hospital stay now back at baseline. Heme-onc followed for thrombocytopenia and ordered a right upper quadrant ultrasound to evaluate for other causes. Right upper quadrant ultrasound revealed hepatic mass. Prior
records from [facility] also revealed hepatic mass. The mass has appeared to shrink in size and after discussion with son, the pt plans to follow-up in outpatient with repeat scans. Cardiology ruled patient a poor candidate for pacer wire
removal and DAYA was not done due to low platelet count. Instead prior DAYA records from [facility] were obtained. Cardiology also recommended discontinuation of Entresto and torsemide as patient remained euvolemic off torsemide during stay,
and Entresto could have contributed to MINDI. Nephrology in agreement with this. Son is aware and plans to follow-up with outpatient wrap yarn sorter. Psychiatry placed an as needed order for risperidone as necessary. However, after speaking with
patient's son, agitation and confusion was significantly different from patient's baseline and an MRI was ordered. MRI revealed tiny subacute lacunar infarct. Neurology was consulted and recommended to restart his aspirin despite low platelet
counts as MINDI was resolving.
Today, patient is clinically stable for discharge to SNF. After discussion with son, patient will continue on long-term antibiotic suppressive therapy with follow-up for eosinophilia in the outpatient setting. Patient also plans to follow-up with
outpatient wrap yarn sorter to to further discuss Entresto and GI for ongoing evaluation of hepatic mass. Torsemide, potassium chloride, Entresto were discontinued. Amoxicillin 500 twice daily was added. Recommend follow-up CBC with differentials in
1 week to evaluate for eosinophilia.
Discharge Plan
-
Patient Disposition: [place] SNF/Hospital
Discharge Diagnosis/Procedures: Acute hypoxemic respiratory failure secondary to pneumonia
Condition: Fair
Diet: Low Sodium and Restrict fluids to 64 oz
Activity: As tolerated
Driving Restrictions: No driving
Bathing Restrictions: None
Referrals:
Sergio Zhou MD [Family Provider] - in less than 1 week
Additional Discharge Medication Instructions: Recommend repeat CBC with diff to trend eosinophil count. Suspected secondary to penicillin, so advise to recheck eosinophil count in a week.
Recommend follow up with wrap yarn sorter in outpatient to evaluate restarting entresto
Follow up with GI docs in [place] for follow up RUQ ultrasound to evaluate hepatic mass.
Prescriptions:
New
amoxicillin 500 mg capsule
500 mg PO BID 30 Days Qty: 60 0RF
Continued
acetaminophen 325 mg Tablet
650 mg PO Q4HPRN PRN (Reason: mild pain/temp>100F)
carvedilol 6.25 mg Tablet
6.25 mg PO BID
isosorbide mononitrate 30 mg Tablet Extended Release 24 Hr
30 mg PO DAILY
aspirin 81 mg Tablet,Delayed Release (Dr/Ec)
81 mg PO DAILY
tramadol 50 mg Tablet
50 mg PO Q8HPRN PRN (Reason: moderate to severe pain)
magnesium hydroxide [Milk of Magnesia] 400 mg/5 mL Suspension
30 ml PO DAILYPRN PRN (Reason: if no bm x 3 days)
bisacodyl [Dulcolax (bisacodyl)] 10 mg Suppository
10 mg WV DAILYPRN PRN (Reason: if mom is ineffective)
pantoprazole 40 mg Tablet,Delayed Release (Dr/Ec)
40 mg PO DAILY
Fleet Enema 19-7 gram/118 mL Enema
118 ml WV DAILYPRN PRN (Reason: if dulcolax is ineffective)
rosuvastatin 20 mg Tablet
20 mg PO HS
Discontinued
torsemide 20 mg Tablet
20 mg PO DAILY
sodium chloride 0.9 % [Normal Saline] Solution
10 ml IV TID
daptomycin 500 mg Recon Soln
550 mg IV HS
potassium chloride 20 mEq Tablet Extended Release
20 meq PO DAILY
sacubitril-valsartan 24-26 mg Tablet
1 tab PO DAILY
Discharge Orders:
Discharge Patient (As Directed); Ordered 07/03/24
Ordered By: Patsy Sutton
Discharge Date and Time
Print Language: MAORI
[2024-07-03 19:40] VITALS: BP 139/64
--- NOTE | 2024-07-03 19:45 | PTCARENOTE ---
Report given to facility from prior RN, EMS arrived at [address] for orange picker to [facility]. IV removed and vitals as documented. Patient sent with all belongings.
== END 2024-07-03 19:45 | DRG 314 ==
LOC: 3 WEST ACU 23:41
PROVIDERS: Emergency Medicine; Nurse Practitioner Acute Care; Nurse Practitioner Gerontology; Physician Assistant Medical; Specialist; Student in an Organized Health Care Education/Training Program; ADMITTING PHYSICIAN Hospitalist; ATTENDING PHYSICIAN Internal Medicine; CONSULT PHYSICIAN Internal Medicine; CONSULT PHYSICIAN Internal Medicine Infectious Disease; CONSULT PHYSICIAN Psychiatry & Neurology Neurology; CONSULT PHYSICIAN Specialist; EMERGENCY PHYSICIAN Emergency Medicine; FAMILY PHYSICIAN Internal Medicine; OTHER PHYSICIAN Internal Medicine Hematology & Oncology; OTHER PHYSICIAN Psychiatry & Neurology Psychiatry
DX: T82.7XXA Infection and inflammatory reaction due to other cardiac and vascular devices, implants and grafts, initial encounter (principal); G92.8 Other toxic encephalopathy; J18.9 Pneumonia, unspecified organism; J96.01 Acute respiratory failure with hypoxia; I33.0 Acute and subacute infective endocarditis; I63.81 Other cerebral infarction due to occlusion or stenosis of small artery; I13.0 Hypertensive heart and chronic kidney disease with heart failure and stage 1 through stage 4 chronic kidney disease, or unspecified chronic kidney disease; N17.9 Acute kidney failure, unspecified; I50.22 Chronic systolic (congestive) heart failure; R78.81 Bacteremia; F03.911 Unspecified dementia, unspecified severity, with agitation; E87.0 Hyperosmolality and hypernatremia; K81.0 Acute cholecystitis; F05 Delirium due to known physiological condition; D69.6 Thrombocytopenia, unspecified; I25.10 Atherosclerotic heart disease of native coronary artery without angina pectoris; E66.9 Obesity, unspecified; N18.31 Chronic kidney disease, stage 3a; K76.0 Fatty (change of) liver, not elsewhere classified; E78.00 Pure hypercholesterolemia, unspecified; D53.9 Nutritional anemia, unspecified; K21.9 Gastro-esophageal reflux disease without esophagitis; I44.7 Left bundle-branch block, unspecified; M46.40 Discitis, unspecified, site unspecified; I95.9 Hypotension, unspecified; N40.0 Benign prostatic hyperplasia without lower urinary tract symptoms; M43.16 Spondylolisthesis, lumbar region; D72.10 Eosinophilia, unspecified; B95.2 Enterococcus as the cause of diseases classified elsewhere; I25.5 Ischemic cardiomyopathy; Y84.8 Other medical procedures as the cause of abnormal reaction of the patient, or of later complication, without mention of misadventure at the time of the procedure; Y92.9 Unspecified place or not applicable; R16.0 Hepatomegaly, not elsewhere classified; E86.0 Dehydration; Y95 Nosocomial condition; L89.312 Pressure ulcer of right buttock, stage 2; E87.6 Hypokalemia; Z66 Do not resuscitate; I25.2 Old myocardial infarction; Z68.31 Body mass index [BMI] 31.0-31.9, adult; Z11.52 Encounter for screening for COVID-19; Z95.810 Presence of automatic (implantable) cardiac defibrillator; Z95.1 Presence of aortocoronary bypass graft; Z79.82 Long term (current) use of aspirin; Z78.1 Physical restraint status
CPT/HCPCS: 70450; 70551; 71046; 76700; 80048; 80053; 80061; 81003; 81015; 82550; 82570; 82607; 82746; 83036; 83605; 83735; 83880; 83930; 83935; 84156; 84300; 84443; 84484; 85025; 85027; 85379; 85384; 85610; 85652; 85730; 86022; 86140; 87040; 87070; 87811; 92610; 93005; 93306; 93970; 94640; 96361; 96365; 97110; 97163; 97166; 97530; 97535; 99285; J0878; Q9957

== ENCOUNTER → 2024-07-08 12:04 | Outpatient (REF) | payer OTHER, SELFPAY ==
[2024-07-08 13:09] LABS: % Basophils 1.1 % (0-2); % Eosinophils 11.3 % (0-6); % Immature Granulocytes 0.2 % (0-0.5); % Lymphocytes 33.3 % (20.5-51.1); % Monocytes 7.4 % (1.7-9.3); % Neutrophils 46.7 % (42.2-75.2); Absolute Basophils 0.1 10^3/uL (0-0.2); Absolute Eosinophils 0.6 10^3/uL (0-0.7); Absolute Lymphocytes 1.9 10^3/uL (1.2-3.4); Absolute Monocytes 0.4 10^3/uL (0.1-0.6); Absolute Neutrophils 2.7 10^3/uL (1.4-6.5); Hematocrit 27.9 % (39.0-52.0); Hemoglobin 9.7 g/dL (13.0-18.0); Mean Corp Hgb Conc. 34.8 g/dL (33.0-37.0); Mean Corpuscular Hgb 34.3 pg (27.0-31.0); Mean Corpuscular Volume 98.6 fL (80.0-94.0); Mean Platelet Volume 12.4 fL (7.4-10.4); Nucleated Red Blood Cells % 0 % (-); Platelet Count 64 10^3/uL (130-400); Red Blood Cell Count 2.83 10^6/uL (4.70-6.10); Red Cell Dist. Width 13.7 % (11.5-14.5); White Blood Cell Count 5.7 10^3/uL (4.8-10.8)
[2024-07-08 13:47] LABS: Blood Urea Nitrogen 11 mg/dl (9-20); Calcium 9.3 mg/dl (8.4-10.2); Carbon Dioxide 24 mmol/L (22-30); Chloride 109 mmol/L (98-107); Glucose 96 mg/dl (70-99); Potassium 3.2 mmol/L (3.5-5.1); Sodium 144 mmol/L (135-145); eGFR 58.89
== END ==
LOC: OLABP 12:04
PROVIDERS: ATTENDING PHYSICIAN Family Medicine
DX: J18.9 Pneumonia, unspecified organism (principal); N17.9 Acute kidney failure, unspecified; G92.8 Other toxic encephalopathy; I50.30 Unspecified diastolic (congestive) heart failure; I25.10 Atherosclerotic heart disease of native coronary artery without angina pectoris; E87.0 Hyperosmolality and hypernatremia; E87.6 Hypokalemia; D72.10 Eosinophilia, unspecified; G46.7 Other lacunar syndromes; M62.81 Muscle weakness (generalized)
CPT/HCPCS: 36415; 80048; 85025

== ENCOUNTER → 2024-07-10 15:24 | Outpatient (REF) | payer OTHER, SELFPAY ==
[2024-07-10 15:49] LABS: Blood Urea Nitrogen 8 mg/dl (9-20); Calcium 9.3 mg/dl (8.4-10.2); Carbon Dioxide 22 mmol/L (22-30); Chloride 109 mmol/L (98-107); Glucose 102 mg/dl (70-99); Potassium 3.9 mmol/L (3.5-5.1); Sodium 143 mmol/L (135-145); eGFR > 60.00
== END ==
LOC: OLABP 15:24
PROVIDERS: ATTENDING PHYSICIAN Family Medicine
DX: J18.9 Pneumonia, unspecified organism (principal); N17.9 Acute kidney failure, unspecified; G92.8 Other toxic encephalopathy; I50.30 Unspecified diastolic (congestive) heart failure; I25.10 Atherosclerotic heart disease of native coronary artery without angina pectoris; E87.0 Hyperosmolality and hypernatremia; E87.6 Hypokalemia; D72.10 Eosinophilia, unspecified; G46.7 Other lacunar syndromes; M62.81 Muscle weakness (generalized)
CPT/HCPCS: 36415; 80048

== ENCOUNTER → 2024-07-23 09:16 | Outpatient (REF) | payer OTHER, SELFPAY ==
[2024-07-23 11:45] LABS: Blood Urea Nitrogen 8 mg/dl (9-20); Calcium 8.9 mg/dl (8.4-10.2); Carbon Dioxide 27 mmol/L (22-30); Chloride 105 mmol/L (98-107); Glucose 98 mg/dl (70-99); Potassium 3.3 mmol/L (3.5-5.1); Sodium 142 mmol/L (135-145); eGFR 58.89
[2024-07-23 11:48] LABS: % Basophils 0.7 % (0-2); % Eosinophils 16.1 % (0-6); % Lymphocytes 31.4 % (20.5-51.1); % Monocytes 9.5 % (1.7-9.3); % Neutrophils 42.3 % (42.2-75.2); Absolute Eosinophils 0.7 10^3/uL (0-0.7); Absolute Lymphocytes 1.4 10^3/uL (1.2-3.4); Absolute Monocytes 0.4 10^3/uL (0.1-0.6); Absolute Neutrophils 1.9 10^3/uL (1.4-6.5); Hemoglobin 9.6 g/dL (13.0-18.0); Mean Corpuscular Hgb 33.8 pg (27.0-31.0); Mean Corpuscular Volume 105.6 fL (80.0-94.0); Mean Platelet Volume 11.7 fL (7.4-10.4); Nucleated Red Blood Cells % 0 % (-); Platelet Count 54 10^3/uL (130-400); Red Blood Cell Count 2.84 10^6/uL (4.70-6.10); Red Cell Dist. Width 14.1 % (11.5-14.5); White Blood Cell Count 4.4 10^3/uL (4.8-10.8)
== END ==
LOC: OLABP 09:16
PROVIDERS: ATTENDING PHYSICIAN Family Medicine
DX: J18.9 Pneumonia, unspecified organism (principal); N17.9 Acute kidney failure, unspecified; G92.8 Other toxic encephalopathy; I50.30 Unspecified diastolic (congestive) heart failure; I25.10 Atherosclerotic heart disease of native coronary artery without angina pectoris; E87.0 Hyperosmolality and hypernatremia; E87.6 Hypokalemia; D72.10 Eosinophilia, unspecified; G46.7 Other lacunar syndromes; M62.81 Muscle weakness (generalized)
CPT/HCPCS: 36415; 80048; 85025

== ENCOUNTER → 2024-07-29 10:14 | Outpatient (REF) | payer OTHER, SELFPAY ==
[2024-07-29 14:35] LABS: Blood Urea Nitrogen 9 mg/dl (9-20); Calcium 9.1 mg/dl (8.4-10.2); Carbon Dioxide 27 mmol/L (22-30); Chloride 107 mmol/L (98-107); Glucose 102 mg/dl (70-99); Potassium 3.6 mmol/L (3.5-5.1); Sodium 141 mmol/L (135-145); eGFR 58.89
== END ==
LOC: OLABLV 10:14
PROVIDERS: ATTENDING PHYSICIAN Nurse Practitioner Gerontology
DX: E87.6 Hypokalemia (principal)
CPT/HCPCS: 36415; 80048

== ENCOUNTER 2024-08-03 06:57 | Emergency (ER) | payer OTHER, SELFPAY ==
[2024-08-03] VITALS (7 sets, daily range): BP systolic 120–141; BP diastolic 56–67; BMI 25.5
--- NOTE | 2024-08-03 07:45 | ED.MUSCINJ ---
HPI-Injury
General
Chief Complaint: Fall
Source: patient
Exam Limitations: none
Time Seen by Provider: 08/03/24 07:34
History of Present Illness-Injury
Initial Injury comments:
84-year-old male from [facility] allegedly slipped and fell out of bed. He could not get himself off the floor. Patient does not provide me any history. He is not anticoagulated per the medical records. He has a nephrostomy tube.
Past History
Past History
ED Past Medical History: CAD, HTN and Other (Endocarditis, chronic thrombocytopenia); Negative Renal failure (CKD 3)
ED Past Surgical History: Cardiac (CABG, defibrillator)
Social History
Tobacco: Non-smoker
Alcohol: None
Personal:
Employment: Retired
Family History
Family History: Other (reviewed and non-contributory)
Phy Exam
Physical Exam
Physical Exam:
General: Well-developed male no acute respiratory distress
HEENT: Normocephalic atraumatic
Heart: Regular rate and rhythm
Lungs: Clear no wheeze abdomen soft mild tenderness to the right flank
No guarding rebound normal bowel sounds
Extremities: No cyanosis mild edema bilateral lower extremities
Neurologic exam alert follows commands responds to verbal stimuli
Injury Course
Orders/Labs/Results
Orders:
Orders
08/03/24 07:15
Electrocardiogram (*1) Urgent
Reason for Study: Fatigue / Weakness
08/03/24 07:16
EKG- Treatment ONCE
08/03/24 07:44
CT Abd/pelvis W Iv Cont Urgent
Comment:
Reason For Exam: fall, right sided pain
CT Head W/o Iv Contrast Urgent
Comment:
Reason For Exam: fall
08/03/24 08:24
Complete Blood Count/With Diff Urgent
Comprehensive Metabolic Panel Urgent
08/03/24 10:54
Urinalysis Reflex To Culture Urgent
Date Specimen was Collected: 08/03/24
Time Specimen was Collected: 10:46
Abnormal Lab Results
08/03/24
08:24
RBC 3.31 L 10^6/uL
(4.70-6.10)
Hgb 11.1 L g/dL
(13.0-18.0)
Hct 33.9 L %
(39.0-52.0)
MCV 102.4 H fL
(80.0-94.0)
MCH 33.5 H pg
(27.0-31.0)
MCHC 32.7 L g/dL
(33.0-37.0)
Plt Count 55 L 10^3/uL
(130-400)
MPV 10.9 H fL
(7.4-10.4)
Lymphocytes % 19.7 L %
(20.5-51.1)
Eosinophils % 6.5 H %
(0-6)
Glucose 116 H mg/dl
(70-99)
Alkaline Phosphatase 31 L U/L
(38-126)
Total Protein 5.8 L g/dl
(6.3-8.2)
08/03/24 08:24
08/03/24 08:24
MDM/Problems Addressed
Differential Diagnosis Includes:
Fall. No obvious signs of trauma but patient somewhat somnolent throughout the exam refuses to talk. Will CT of head. He has right sided tenderness and there is a right sided nephrostomy tube. CT of the abdomen pending as well will check labs.
Is afebrile rectally upon triage.
*Critical Care Note
Total Time (30-74mins, 75-104mins- exclusive of procedures): Not Applicable
Update Note
Update Note:
Workup here so far unremarkable. CT head and abdomen negative for acute finding. Labs reviewed without significant finding. Spoke with staff at [facility] who was concerned about increased confusion. Patient does have baseline dementia
but he was more confused than usual. Urinalysis negative for infection. Upon reassessment, patient does respond to my questions. He is alert. At this point no indication for admission. Will discharge back to [facility]
ED Attending Note
-
Portions of this chart may have been created with voice recognition software.� Occasional wrong word or��sound alike� substitutions may have occurred due to the inherent limitations of voice recognition software.
Discharge Plan
Departure
Patient Disposition: Home (Routine Discharge)
Date of Disposition: 08/03/24
Time of Disposition: 12:02
Patient with high blood pressure during this ER visit?: No
Discharge Problem:
Fall
Instructions: Preventing falls in adults
Prescriptions:
No Action
carvedilol 6.25 mg Tablet
6.25 mg PO BID
isosorbide mononitrate 30 mg Tablet Extended Release 24 Hr
30 mg PO DAILY
aspirin 81 mg Tablet,Delayed Release (Dr/Ec)
81 mg PO DAILY
tramadol 50 mg Tablet
50 mg PO Q8HPRN PRN (Reason: moderate to severe pain)
pantoprazole 40 mg Tablet,Delayed Release (Dr/Ec)
40 mg PO DAILY
rosuvastatin 20 mg Tablet
20 mg PO HS
potassium chloride 20 mEq Tablet Extended Release
20 meq PO DAILY
Referrals:
Daly Prado CRNP [Family Provider] -
Activity Restrictions/Additional Instructions:
Workup here is negative. No sign of infection. Continue current medication regimen. Return if worse otherwise
Interventions
Interventions:
*Risk Screen - Suicide Last Done: 08/03/24 07:04
*General Assessment Last Done: 08/03/24 07:04
*Neglect/Abuse Screening Last Done: 08/03/24 07:04
*ED COVID-19 Vaccine History Last Done: 08/03/24 07:04
ED-Musculoskeletal Assessment Last Done: 08/03/24 07:15
ED- Neurological Assessment Last Done: 08/03/24 07:15
ED-Skin Assessment Last Done: 08/03/24 07:15
Discharge Date and Time
Print Language: ARABIC
[2024-08-03 08:38] LABS: % Basophils 0.5 % (0-2); % Eosinophils 6.5 % (0-6); % Immature Granulocytes 0.3 % (0-0.5); % Lymphocytes 19.7 % (20.5-51.1); % Monocytes 7.7 % (1.7-9.3); % Neutrophils 65.3 % (42.2-75.2); Absolute Eosinophils 0.4 10^3/uL (0-0.7); Absolute Lymphocytes 1.2 10^3/uL (1.2-3.4); Absolute Monocytes 0.5 10^3/uL (0.1-0.6); Absolute Neutrophils 3.8 10^3/uL (1.4-6.5); Hematocrit 33.9 % (39.0-52.0); Hemoglobin 11.1 g/dL (13.0-18.0); Mean Corp Hgb Conc. 32.7 g/dL (33.0-37.0); Mean Corpuscular Hgb 33.5 pg (27.0-31.0); Mean Corpuscular Volume 102.4 fL (80.0-94.0); Mean Platelet Volume 10.9 fL (7.4-10.4); Nucleated Red Blood Cells % 0 % (-); Platelet Count 55 10^3/uL (130-400); Red Blood Cell Count 3.31 10^6/uL (4.70-6.10); Red Cell Dist. Width 13.2 % (11.5-14.5); White Blood Cell Count 5.8 10^3/uL (4.8-10.8)
[2024-08-03 08:46] LABS: ALT (SGPT) 24 U/L (0-50); AST (SGOT) 36 U/L (17-59); Albumin 3.9 g/dl (3.5-5.0); Alkaline Phosphatase 31 U/L (38-126); Blood Urea Nitrogen 10 mg/dl (9-20); Calcium 9.6 mg/dl (8.4-10.2); Carbon Dioxide 25 mmol/L (22-30); Chloride 105 mmol/L (98-107); Estimated Creatinine Clearance 48 ml/min; Glucose 116 mg/dl (70-99); Potassium 3.7 mmol/L (3.5-5.1); Sodium 138 mmol/L (135-145); Total Bilirubin 1.1 mg/dl (0.2-1.3); Total Protein 5.8 g/dl (6.3-8.2); eGFR > 60.00
[2024-08-03 11:27] LABS: Urine Albumin Trace (Neg - Trace); Urine Bilirubin Negative (Negative); Urine Character Clear (Clear); Urine Color Yellow; Urine Glucose Negative (Negative); Urine Ketone Negative (Negative); Urine Leukocyte Negative (Negative); Urine Nitrite Negative (Negative); Urine Occult Blood Negative (Negative); Urine Urobilinogen Negative (Neg - 1+)
== END 2024-08-03 12:46 | disposition home or self-care (01) ==
LOC: EMR 06:57
PROVIDERS: Physician Assistant; EMERGENCY PHYSICIAN Emergency Medicine; FAMILY PHYSICIAN Nurse Practitioner Gerontology
DX: Z04.89 Encounter for examination and observation for other specified reasons (principal); W06.XXXA Fall from bed, initial encounter; I10 Essential (primary) hypertension; I25.10 Atherosclerotic heart disease of native coronary artery without angina pectoris; Z95.1 Presence of aortocoronary bypass graft
CPT/HCPCS: 99284; 70450; 74177; 80053; 81003; 85025; 93005; Q9967

== ENCOUNTER → 2024-08-25 02:00 | Outpatient (REF) | payer OTHER, SELFPAY ==
[2024-08-25 17:33] LABS: Urine Albumin Negative (Neg - Trace); Urine Bilirubin Negative (Negative); Urine Character Slightly Cloudy (Clear); Urine Color Yellow; Urine Glucose Negative (Negative); Urine Ketone Negative (Negative); Urine Leukocyte Negative (Negative); Urine Nitrite Negative (Negative); Urine Occult Blood Negative (Negative); Urine Urobilinogen Negative (Neg - 1+)
== END ==
LOC: OLABLV 02:00
PROVIDERS: ATTENDING PHYSICIAN Nurse Practitioner Gerontology
DX: R30.0 Dysuria (principal)
CPT/HCPCS: 81003

== ENCOUNTER → 2024-09-04 10:00 | Outpatient (REF) | payer OTHER, SELFPAY ==
[2024-09-04 10:41] LABS: Blood Urea Nitrogen 14 mg/dl (9-20); Calcium 9.3 mg/dl (8.4-10.2); Carbon Dioxide 27 mmol/L (22-30); Chloride 107 mmol/L (98-107); Glucose 110 mg/dl (70-99); Potassium 4.4 mmol/L (3.5-5.1); Sodium 142 mmol/L (135-145); eGFR > 60.00
[2024-09-04 10:48] LABS: Hematocrit 35.3 % (39.0-52.0); Hemoglobin 11.3 g/dL (13.0-18.0); Mean Corpuscular Hgb 34.3 pg (27.0-31.0); Mean Corpuscular Volume 107.3 fL (80.0-94.0); Mean Platelet Volume 12.1 fL (7.4-10.4); Platelet Count 68 10^3/uL (130-400); Red Blood Cell Count 3.29 10^6/uL (4.70-6.10); Red Cell Dist. Width 13.3 % (11.5-14.5); White Blood Cell Count 6.6 10^3/uL (4.8-10.8)
== END ==
LOC: OLABLV 10:00
PROVIDERS: ATTENDING PHYSICIAN Nurse Practitioner Gerontology
DX: E87.6 Hypokalemia (principal); N18.32 Chronic kidney disease, stage 3b; D69.6 Thrombocytopenia, unspecified
CPT/HCPCS: 36415; 80048; 85027

== ENCOUNTER → 2024-10-15 10:25 | Outpatient (REF) | payer OTHER, SELFPAY | LOC: OLABPG 10:25 | PROVIDERS: ATTENDING PHYSICIAN Family Medicine; FAMILY PHYSICIAN Nurse Practitioner Gerontology | DX: I10 Essential (primary) hypertension (principal) | CPT/HCPCS: 36415 ==

== ENCOUNTER → 2024-10-16 09:33 | Outpatient (REF) | payer OTHER, SELFPAY ==
[2024-10-16 11:47] LABS: Blood Urea Nitrogen 17 mg/dl (9-20); Calcium 9.5 mg/dl (8.4-10.2); Carbon Dioxide 26 mmol/L (22-30); Chloride 105 mmol/L (98-107); Glucose 113 mg/dl (70-99); Potassium 4.2 mmol/L (3.5-5.1); Sodium 139 mmol/L (135-145); eGFR > 60.00
== END ==
LOC: OLABPG 09:33
PROVIDERS: ATTENDING PHYSICIAN Family Medicine
DX: I10 Essential (primary) hypertension (principal)
CPT/HCPCS: 36415; 80048

== ENCOUNTER → 2024-11-03 11:16 | Outpatient (REF) | payer OTHER, SELFPAY ==
[2024-11-03 11:56] LABS: Blood Urea Nitrogen 30 mg/dl (9-20); Calcium 8.7 mg/dl (8.4-10.2); Carbon Dioxide 26 mmol/L (22-30); Chloride 104 mmol/L (98-107); Glucose 106 mg/dl (70-99); Sodium 136 mmol/L (135-145)
[2024-11-03 12:00] LABS: % Basophils 0.2 % (0-2); % Eosinophils 3.8 % (0-6); % Immature Granulocytes 0.3 % (0-0.5); % Monocytes 11.1 % (1.7-9.3); % Neutrophils 59.6 % (42.2-75.2); Absolute Eosinophils 0.2 10^3/uL (0-0.7); Absolute Lymphocytes 1.5 10^3/uL (1.2-3.4); Absolute Monocytes 0.7 10^3/uL (0.1-0.6); Absolute Neutrophils 3.5 10^3/uL (1.4-6.5); Hematocrit 32.8 % (39.0-52.0); Mean Corp Hgb Conc. 33.5 g/dL (33.0-37.0); Mean Corpuscular Volume 101.2 fL (80.0-94.0); Mean Platelet Volume 11.7 fL (7.4-10.4); Nucleated Red Blood Cells % 0 % (-); Platelet Count 71 10^3/uL (130-400); Red Blood Cell Count 3.24 10^6/uL (4.70-6.10); Red Cell Dist. Width 12.4 % (11.5-14.5); White Blood Cell Count 5.9 10^3/uL (4.8-10.8)
== END ==
LOC: OLABPG 11:16
PROVIDERS: ATTENDING PHYSICIAN Nurse Practitioner Gerontology
DX: E53.8 Deficiency of other specified B group vitamins (principal); I10 Essential (primary) hypertension
CPT/HCPCS: 36415; 80048; 85025